=== PATIENT | female | born 1940 | race African-American/Black ===

== ENCOUNTER 2016-06-02 21:09 | Inpatient (IN) | payer MEDICARE, MEDICAID ==
[~2016-06-02] VITALS: Ht 157.5 cm; Wt 62.1 kg
[~2016-06-02 21:09] MED LIST: AMLO1CAP2 PO; ATEN-42 PO; COLE3.75 PO; CYCL5TAB PO; DOCU-138 PO; GABA-531 PO; GLIP5TAB12 PO; HYDR-523 PO; SITA1TAB8 PO; ZOLP10TA6 PO
[2016-06-02] MEDS ORDERED: ONDANSETRON HCL 4MG/2ML VIAL IV STA (22:52)
[2016-06-02] MEDS ORDERED: SODIUM CHLORIDE 0.9% 1,000 ML IV ONE (22:52)
[2016-06-02] MEDS ORDERED: ACETAMINOPHEN 325MG TABLET PO STA (22:52)
[2016-06-02 23:25] LABS: HEMOGLOBIN. 12.7 g/dL (12.0-16.0); MEAN CORPUSCULAR HEMOGLOBIN 26.1 pg (28.0-32.0); MEAN CORPUSCULAR HGB CONC 32.5 g/dL (31.0-37.0); MEAN CORPUSCULAR VOLUME 80.3 fL (81.0-99.0); PLATELET 227 x1000/uL (130-400); RED BLOOD CELL COUNT 4.86 mill/uL (4.2-5.4); WHITE BLOOD COUNT 9.7 x1000/uL (4.5-11.0)
[2016-06-02 23:29] LABS: CHLORIDE 100 mEq/L (98-107); INDEX HEMOLYSI 1 (1-3); INDEX ICTERIC 1 (1-4); INDEX LIPEMIC 1 (1-3)
[2016-06-02 23:30] LABS: DIFFERENTIAL COMMENT 1
[2016-06-02 23:35] LABS: ALANINE AMINOTRANSFERASE 327 IU/L (13-61); ALBUMIN 3.3 g/dL (3.4-5.0); ANION GAP 16; CALCIUM 8.6 mg/dL (8.5-10.1); CARBON DIOXIDE 24 mEq/L (21-32); UREA NITROGEN BLOOD 22 mg/dL (7-21); eGFR > 60 mL/min (>60)
[2016-06-02 23:38] LABS: TROPONIN I < 0.02 ng/mL (0.00-0.04)
[2016-06-02 23:46] LABS: LACTIC ACID 3.2 mmol/L (0.4-2.0)
[2016-06-03 00:11] LABS: CLARITY URINE CLEAR (CLEAR); COLOR URINE YELLOW (YELLOW); GLUCOSE URINE NEGATIVE (NEGATIVE); KETONES URINE NEGATIVE (NEGATIVE); LEUKOCYTE ESTERASE URINE NEGATIVE (NEGATIVE); NITRITE URINE NEGATIVE (NEGATIVE); OCCULT BLOOD URINE NEGATIVE (NEGATIVE); PH URINE 5.5 (4.5-8.0); PROTEIN URINE 1+ (NEGATIVE); SPECIFIC GRAVITY URINE 1.014 (1.005-1.030); UROBILINOGEN URINE 0.2 E.U./dL (0.2-1.0)
[2016-06-03 00:13] LABS: PLATELET ESTIMATE NORMAL
[2016-06-03 00:13] LABS: BACTERIA URINE NONE SEEN; CALCIUM PHOSPHATE CRYSTALS UR NONE SEEN /lpf; RBC URINE NONE SEEN /hpf (0-2); SQUAMOUS EPITHELIAL CELL URINE NONE SEEN /lpf (RARE/1+); WAXY CASTS URINE NONE SEEN /lpf; WBC URINE NONE SEEN /hpf (0-2); YEAST URINE NONE SEEN
[2016-06-03] MEDS ORDERED: LEVOFLOXACIN 750MG PREMIX 150 ML IV ONE (00:30)
[2016-06-03] MEDS ORDERED: LEVOFLOXACIN 500MG PREMIX 100 ML IV SCH (02:15)
[2016-06-03] MEDS ORDERED: CLONIDINE 0.1MG TABLET PO PRN (02:15)
[2016-06-03] MEDS ORDERED: ACETAMINOPHEN 325MG TABLET PO PRN (02:15)
[2016-06-03] MEDS: SODIUM CHLORIDE 0.9% 1,000 ML IV SCH ×2 (04:19→18:24)
[2016-06-03 06:00] LABS: DIFFERENTIAL COMMENT 1; HEMATOCRIT. 36.3 % (36.0-48.0); HEMOGLOBIN. 11.9 g/dL (12.0-16.0); MEAN CORPUSCULAR HEMOGLOBIN 26.2 pg (28.0-32.0); MEAN CORPUSCULAR HGB CONC 32.8 g/dL (31.0-37.0); MEAN CORPUSCULAR VOLUME 79.9 fL (81.0-99.0); PLATELET 202 x1000/uL (130-400); RED BLOOD CELL COUNT 4.55 mill/uL (4.2-5.4); WHITE BLOOD COUNT 11.8 x1000/uL (4.5-11.0)
[2016-06-03 06:02] LABS: CHLORIDE 104 mEq/L (98-107); INDEX HEMOLYSI 1 (1-3); INDEX ICTERIC 1 (1-4); INDEX LIPEMIC 1 (1-3)
[2016-06-03 06:18] LABS: ANION GAP 12; CALCIUM 8.1 mg/dL (8.5-10.1); CARBON DIOXIDE 26 mEq/L (21-32); MAGNESIUM 1.3 mg/dL (1.8-2.4); T3 FREE 1.48 pg/ml (2.18-3.98); T4 FREE 1.18 ng/dL (0.76-1.46); UREA NITROGEN BLOOD 17 mg/dL (7-21); eGFR > 60 mL/min (>60)
[2016-06-03 07:44] LABS: PLATELET ESTIMATE NORMAL
[2016-06-03] MEDS: ONDANSETRON HCL 4MG/2ML VIAL IV PRN (08:29)
[2016-06-03] MEDS: MORPHINE SULFATE 2 MG/ML CPJ (NOT FOR IM USE) IV PRN (08:29)
[2016-06-03 11:05] VITALS: BP 116/61
[2016-06-03 11:22] VITALS: BP 116/61
[2016-06-03] MEDS ORDERED: PREG75CA PO (11:56)
[2016-06-03] MEDS: ENOXAPARIN 40MG/0.4ML SYR SUBCUT SCH (12:48)
[2016-06-03] MEDS ORDERED: MAGNESIUM 4 G PREMIX 100 ML IV NR (13:00)
[2016-06-03] MEDS ORDERED: DEXTROSE 50% WATER 50ML SYRINGE IV PRN (13:45)
[2016-06-03] MEDS ORDERED: SODIUM PHOS,M-BASIC-D-BASIC 15 MM in DEXT 5% WATER 245 ML IV NR (14:00)
[2016-06-03 16:00] VITALS: BP_SYST 123; BP_SYST 129; BP_SYST 135; BP_DIAS 57; BP_DIAS 65; BP_DIAS 72
[2016-06-03] MEDS: BLOOD SUGAR DIAGNOSTIC STRIP TEST SCH ×2 (17:40→20:55)
[2016-06-03] MEDS: INSULIN LISPRO 100 UNITS/ML SUBCUT SCH ×2 (18:46→20:58)
[2016-06-03 20:00] VITALS: BP 163/79
[2016-06-04] VITALS: BP 125/59
[2016-06-04] MEDS: MORPHINE SULFATE 2 MG/ML CPJ (NOT FOR IM USE) IV PRN (00:05)
[2016-06-04] MEDS: LEVOFLOXACIN 250MG PREMIX 50 ML IV SCH (00:06)
[2016-06-04] MEDS ORDERED: HYDROCODONE/ACETAMINOPHEN 5/325MG TABLET PO PRN (01:30)
[2016-06-04 03:41] LABS: CLARITY URINE CLEAR (CLEAR); COLOR URINE YELLOW (YELLOW); GLUCOSE URINE 3+ (NEGATIVE); KETONES URINE NEGATIVE (NEGATIVE); LEUKOCYTE ESTERASE URINE NEGATIVE (NEGATIVE); NITRITE URINE NEGATIVE (NEGATIVE); OCCULT BLOOD URINE NEGATIVE (NEGATIVE); PH URINE 5.5 (4.5-8.0); PROTEIN URINE NEGATIVE (NEGATIVE); SPECIFIC GRAVITY URINE 1.015 (1.005-1.030); UROBILINOGEN URINE 0.2 E.U./dL (0.2-1.0)
[2016-06-04 04:00] VITALS: BP_SYST 104; BP_SYST 109; BP_SYST 131; BP_DIAS 49; BP_DIAS 71; BP_DIAS 87
[2016-06-04 04:10] LABS: BACTERIA URINE NONE SEEN; RBC URINE 0-2 /hpf (0-2); SQUAMOUS EPITHELIAL CELL URINE FEW /lpf (RARE/1+); WBC URINE 0-2 /hpf (0-2)
[2016-06-04 05:08] LABS: *AMPHETAMINES SCREEN URINE NEGATIVE (NEGATIVE); *BARBITURATES SCREEN URINE NEGATIVE (NEGATIVE); *BENZODIAZEPINES SCREEN URINE NEGATIVE (NEGATIVE); *COCAINE SCREEN URINE NEGATIVE (NEGATIVE); CANNABINOID URINE SCREEN NEGATIVE (NEGATIVE); ECSTASY MDMA SCREEN URINE NEGATIVE (NEGATIVE); METHADONE URINE SCREEN NEGATIVE (NEGATIVE); OPIATES URINE SCREEN PRESUMTIVE POSITIVE (NEGATIVE); PHENCYCLIDINE URINE SCREEN NEGATIVE (NEGATIVE)
[2016-06-04] MEDS: BLOOD SUGAR DIAGNOSTIC STRIP TEST SCH ×4 (06:59→20:34)
[2016-06-04 07:06] LABS: HEMATOCRIT. 34.1 % (36.0-48.0); HEMOGLOBIN. 11.1 g/dL (12.0-16.0); MEAN CORPUSCULAR HEMOGLOBIN 26.1 pg (28.0-32.0); MEAN CORPUSCULAR HGB CONC 32.7 g/dL (31.0-37.0); MEAN PLATELET VOLUME 8.2 fl (7.4-10.4); PLATELET 190 x1000/uL (130-400); RED BLOOD CELL COUNT 4.26 mill/uL (4.2-5.4); RED CELL DISTRIBUTION WIDTH 14.3 % (11.6-14.6); WHITE BLOOD COUNT 6.9 x1000/uL (4.5-11.0)
[2016-06-04 07:10] LABS: DIFFERENTIAL COMMENT 1
[2016-06-04 07:37] LABS: CHLORIDE 103 mEq/L (98-107); INDEX HEMOLYSI 1 (1-3); INDEX ICTERIC 1 (1-4); INDEX LIPEMIC 1 (1-3)
[2016-06-04 08:00] VITALS: BP 132/71
[2016-06-04 08:00] LABS: ANION GAP 15; CALCIUM 8.5 mg/dL (8.5-10.1); CARBON DIOXIDE 23 mEq/L (21-32); UREA NITROGEN BLOOD 16 mg/dL (7-21); eGFR > 60 mL/min (>60)
[2016-06-04] MEDS: CYCLOBENZAPRINE 10MG TABLET PO SCH ×3 (08:28→18:06)
[2016-06-04] MEDS: INSULIN LISPRO 100 UNITS/ML SUBCUT SCH ×4 (08:28→21:06)
[2016-06-04] MEDS: LINAGLIPTIN 5MG TABLET PO SCH (08:28)
[2016-06-04] MEDS: DOCUSATE SODIUM 100MG CAPSULE PO SCH ×2 (08:40→18:06)
[2016-06-04] MEDS: PREGABALIN 75MG CAPSULE PO SCH (08:40)
[2016-06-04] MEDS: GLIPIZIDE 5MG TABLET PO SCH ×2 (08:41→18:06)
[2016-06-04] MEDS: ATENOLOL 25MG TABLET PO SCH (08:41)
[2016-06-04] MEDS: GABAPENTIN 300MG CAPSULE PO SCH ×3 (08:45→17:00)
[2016-06-04] MEDS: ENOXAPARIN 40MG/0.4ML SYR SUBCUT SCH (08:45)
[2016-06-04] MEDS: BENAZEPRIL 20MG TABLET PO SCH (08:48)
[2016-06-04] MEDS: AMLODIPINE 10MG TABLET PO SCH (08:50)
[2016-06-04] MEDS ORDERED: GABAPENTIN 300MG CAPSULE PO SCH (09:00)
[2016-06-04] MEDS ORDERED: COLESEVELAM HCL 625MG TABLET PO SCH (09:00)
[2016-06-04] MEDS ORDERED: AMLODIPINE 5MG TABLET PO SCH (09:00)
[2016-06-04 10:01] LABS: PLATELET ESTIMATE NORMAL
[2016-06-04] MEDS: SODIUM CHLORIDE 0.9% 1,000 ML IV SCH (10:04)
[2016-06-04 11:05] LABS: ALANINE AMINOTRANSFERASE 211 IU/L (13-61); ALBUMIN 2.3 g/dL (3.4-5.0); BILIRUBIN DIRECT < 0.1 mg/dL (0.0-0.2); INDEX HEMOLYSI 2 (1-3); INDEX ICTERIC 1 (1-4); INDEX LIPEMIC 1 (1-3)
[2016-06-04 12:00] VITALS: BP 118/80
[2016-06-04 16:00] VITALS: BP 125/89
[2016-06-04 20:00] VITALS: BP_SYST 119; BP_SYST 120; BP_SYST 123; BP_DIAS 76; BP_DIAS 79; BP_DIAS 84
[2016-06-04] MEDS: ZOLPIDEM TARTRATE 5MG TABLET PO PRN (20:33)
[2016-06-04] MEDS: TRAMADOL 50MG TABLET PO PRN (20:34)
[2016-06-05] VITALS: BP 113/78
[2016-06-05] MEDS: LEVOFLOXACIN 250MG PREMIX 50 ML IV SCH (00:12)
[2016-06-05] MEDS: SODIUM CHLORIDE 0.9% 1,000 ML IV SCH ×2 (00:16→17:22)
[2016-06-05 04:00] VITALS: BP 129/59
[2016-06-05 06:04] LABS: HEMATOCRIT. 30.6 % (36.0-48.0); MEAN CORPUSCULAR HGB CONC 32.6 g/dL (31.0-37.0); MEAN CORPUSCULAR VOLUME 79.8 fL (81.0-99.0); MEAN PLATELET VOLUME 8.3 fl (7.4-10.4); PLATELET 206 x1000/uL (130-400); RED BLOOD CELL COUNT 3.84 mill/uL (4.2-5.4); RED CELL DISTRIBUTION WIDTH 14.1 % (11.6-14.6); WHITE BLOOD COUNT 7.8 x1000/uL (4.5-11.0)
[2016-06-05 06:12] LABS: CHLORIDE 103 mEq/L (98-107); INDEX HEMOLYSI 1 (1-3); INDEX ICTERIC 1 (1-4); INDEX LIPEMIC 1 (1-3)
[2016-06-05] MEDS: BLOOD SUGAR DIAGNOSTIC STRIP TEST SCH ×4 (06:17→21:29)
[2016-06-05 06:19] LABS: ALANINE AMINOTRANSFERASE 167 IU/L (13-61); ALBUMIN 2.4 g/dL (3.4-5.0); ANION GAP 14; BILIRUBIN DIRECT < 0.1 mg/dL (0.0-0.2); CARBON DIOXIDE 24 mEq/L (21-32); HDL CHOLESTEROL 34 mg/dL (40-59); LDL CHOLESTEROL 79 mg/dL (5-100); TRIGLYCERIDE 185 mg/dL (0-150); UREA NITROGEN BLOOD 21 mg/dL (7-21); eGFR > 60 mL/min (>60)
[2016-06-05 06:30] LABS: DIFFERENTIAL COMMENT 1
[2016-06-05 08:00] VITALS: BP 149/105
[2016-06-05] MEDS: DOCUSATE SODIUM 100MG CAPSULE PO SCH ×2 (08:39→17:21)
[2016-06-05] MEDS: ATENOLOL 25MG TABLET PO SCH (08:39)
[2016-06-05] MEDS: LINAGLIPTIN 5MG TABLET PO SCH (08:39)
[2016-06-05] MEDS: PREGABALIN 75MG CAPSULE PO SCH (08:39)
[2016-06-05] MEDS: GLIPIZIDE 5MG TABLET PO SCH ×2 (08:39→17:21)
[2016-06-05] MEDS: CYCLOBENZAPRINE 10MG TABLET PO SCH ×3 (08:39→17:21)
[2016-06-05] MEDS: ENOXAPARIN 40MG/0.4ML SYR SUBCUT SCH (08:40)
[2016-06-05] MEDS: AMLODIPINE 10MG TABLET PO SCH (08:40)
[2016-06-05] MEDS: BENAZEPRIL 20MG TABLET PO SCH (08:40)
[2016-06-05] MEDS: INSULIN LISPRO 100 UNITS/ML SUBCUT SCH ×4 (08:41→21:39)
[2016-06-05 11:15] LABS: PLATELET ESTIMATE NORMAL
[2016-06-05 12:00] VITALS: BP_SYST 138; BP_SYST 145; BP_DIAS 65; BP_DIAS 69; BP_DIAS 92
[2016-06-05 16:00] VITALS: BP 140/82
[2016-06-05] MEDS: ONDANSETRON HCL 4MG/2ML VIAL IV PRN (18:54)
[2016-06-05] MEDS: TRAMADOL 50MG TABLET PO PRN (18:55)
[2016-06-05 20:00] VITALS: BP_SYST 139; BP_SYST 140; BP_DIAS 100; BP_DIAS 84
[2016-06-05] MEDS: ZOLPIDEM TARTRATE 5MG TABLET PO PRN (21:28)
[2016-06-06] VITALS: BP 146/83
[2016-06-06] MEDS: LEVOFLOXACIN 250MG PREMIX 50 ML IV SCH (00:37)
[2016-06-06 04:00] VITALS: BP 137/79
[2016-06-06] MEDS: BLOOD SUGAR DIAGNOSTIC STRIP TEST SCH ×4 (06:24→20:57)
[2016-06-06 07:58] VITALS: BP 138/95
[2016-06-06] MEDS: SODIUM CHLORIDE 0.9% 1,000 ML IV SCH (08:17)
[2016-06-06] MEDS: ENOXAPARIN 40MG/0.4ML SYR SUBCUT SCH (08:20)
[2016-06-06] MEDS: DOCUSATE SODIUM 100MG CAPSULE PO SCH ×2 (08:21→17:12)
[2016-06-06] MEDS: BENAZEPRIL 20MG TABLET PO SCH (08:21)
[2016-06-06] MEDS: AMLODIPINE 10MG TABLET PO SCH (08:21)
[2016-06-06] MEDS: PREGABALIN 75MG CAPSULE PO SCH (08:21)
[2016-06-06] MEDS: CYCLOBENZAPRINE 10MG TABLET PO SCH ×3 (08:21→17:12)
[2016-06-06] MEDS: ATENOLOL 25MG TABLET PO SCH (08:21)
[2016-06-06] MEDS: LINAGLIPTIN 5MG TABLET PO SCH (08:21)
[2016-06-06] MEDS: GLIPIZIDE 5MG TABLET PO SCH ×2 (08:21→17:12)
[2016-06-06] MEDS: INSULIN LISPRO 100 UNITS/ML SUBCUT SCH ×4 (08:26→21:06)
[2016-06-06 09:41] LABS: HEMATOCRIT. 34.9 % (36.0-48.0); HEMOGLOBIN. 11.2 g/dL (12.0-16.0); MEAN CORPUSCULAR HGB CONC 32.2 g/dL (31.0-37.0); MEAN CORPUSCULAR VOLUME 80.8 fL (81.0-99.0); MEAN PLATELET VOLUME 8.2 fl (7.4-10.4); PLATELET 225 x1000/uL (130-400); RED BLOOD CELL COUNT 4.32 mill/uL (4.2-5.4); RED CELL DISTRIBUTION WIDTH 14.3 % (11.6-14.6); WHITE BLOOD COUNT 11.1 x1000/uL (4.5-11.0)
[2016-06-06 09:43] LABS: DIFFERENTIAL COMMENT 1
[2016-06-06 10:08] LABS: ALANINE AMINOTRANSFERASE 161 IU/L (13-61); ALBUMIN 2.6 g/dL (3.4-5.0); ANION GAP 13; CALCIUM 8.6 mg/dL (8.5-10.1); CARBON DIOXIDE 28 mEq/L (21-32); CHLORIDE 103 mEq/L (98-107); INDEX HEMOLYSI 1 (1-3); INDEX ICTERIC 1 (1-4); INDEX LIPEMIC 1 (1-3); UREA NITROGEN BLOOD 15 mg/dL (7-21); eGFR > 60 mL/min (>60)
[2016-06-06 11:59] LABS: PLATELET ESTIMATE NORMAL
[2016-06-06 12:00] VITALS: BP 140/82
[2016-06-06 16:00] VITALS: BP_SYST 125; BP_SYST 133; BP_SYST 148; BP_DIAS 64; BP_DIAS 72; BP_DIAS 82
[2016-06-06] MEDS: OMEPRAZOLE 20MG CAPSULE EXTENDED RELEASE PO SCH (17:12)
[2016-06-06 20:00] VITALS: BP_SYST 149; BP_SYST 157; BP_SYST 165; BP_DIAS 73; BP_DIAS 83; BP_DIAS 85
[2016-06-06] MEDS: TRAMADOL 50MG TABLET PO PRN (20:54)
[2016-06-06] MEDS: ZOLPIDEM TARTRATE 5MG TABLET PO PRN (20:54)
[2016-06-06] MEDS ORDERED: LEVOFLOXACIN 250MG TABLET PO SCH (21:00)
[2016-06-07] VITALS: BP 147/70
[2016-06-07 04:00] VITALS: BP 135/93
[2016-06-07 06:14] LABS: ALANINE AMINOTRANSFERASE 169 IU/L (13-61); ALBUMIN 2.8 g/dL (3.4-5.0); ANION GAP 10; BILIRUBIN DIRECT < 0.1 mg/dL (0.0-0.2); CALCIUM 8.8 mg/dL (8.5-10.1); CARBON DIOXIDE 31 mEq/L (21-32); CHLORIDE 100 mEq/L (98-107); HEMATOCRIT. 34.7 % (36.0-48.0); HEMOGLOBIN. 11.3 g/dL (12.0-16.0); INDEX HEMOLYSI 1 (1-3); INDEX ICTERIC 1 (1-4); INDEX LIPEMIC 1 (1-3); MAGNESIUM 1.3 mg/dL (1.8-2.4); MEAN CORPUSCULAR HGB CONC 32.5 g/dL (31.0-37.0); MEAN PLATELET VOLUME 8.3 fl (7.4-10.4); PLATELET 255 x1000/uL (130-400); RED BLOOD CELL COUNT 4.34 mill/uL (4.2-5.4); RED CELL DISTRIBUTION WIDTH 14.3 % (11.6-14.6); UREA NITROGEN BLOOD 15 mg/dL (7-21); WHITE BLOOD COUNT 11.9 x1000/uL (4.5-11.0); eGFR > 60 mL/min (>60)
[2016-06-07 06:25] LABS: DIFFERENTIAL COMMENT 1
[2016-06-07] MEDS: BLOOD SUGAR DIAGNOSTIC STRIP TEST SCH ×4 (06:27→21:17)
[2016-06-07 08:00] VITALS: BP_SYST 138; BP_SYST 140; BP_SYST 157; BP_DIAS 103; BP_DIAS 75; BP_DIAS 84
[2016-06-07] MEDS: OMEPRAZOLE 20MG CAPSULE EXTENDED RELEASE PO SCH (08:18)
[2016-06-07] MEDS: INSULIN LISPRO 100 UNITS/ML SUBCUT SCH ×4 (08:18→21:00)
[2016-06-07] MEDS: GLIPIZIDE 5MG TABLET PO SCH ×2 (09:20→18:24)
[2016-06-07] MEDS: PREGABALIN 75MG CAPSULE PO SCH (09:20)
[2016-06-07] MEDS: CYCLOBENZAPRINE 10MG TABLET PO SCH ×3 (09:20→18:24)
[2016-06-07] MEDS: DOCUSATE SODIUM 100MG CAPSULE PO SCH ×2 (09:20→18:24)
[2016-06-07] MEDS: ENOXAPARIN 40MG/0.4ML SYR SUBCUT SCH (09:20)
[2016-06-07] MEDS: BENAZEPRIL 20MG TABLET PO SCH (09:21)
[2016-06-07] MEDS: ATENOLOL 25MG TABLET PO SCH (09:21)
[2016-06-07] MEDS: AMLODIPINE 10MG TABLET PO SCH (09:22)
[2016-06-07] MEDS: LINAGLIPTIN 5MG TABLET PO SCH (10:22)
[2016-06-07 12:00] VITALS: BP 148/76
[2016-06-07] MEDS: MAGNESIUM OXIDE 400MG TABLET PO SCH ×2 (13:32→18:24)
[2016-06-07 13:41] LABS: PLATELET ESTIMATE NORMAL
[2016-06-07] MEDS: SODIUM CHLORIDE 0.9% 1,000 ML IV SCH ×2 (14:00→21:17)
[2016-06-07 16:00] VITALS: BP 136/80
[2016-06-07 18:27] LABS: HEPATITIS B SURFACE ANTIGEN NEGATIVE
[2016-06-07 18:55] LABS: HEPATITIS C VIR.AB < 0.02 INDEXVAL (0.00-0.80)
[2016-06-07 18:56] LABS: HEPATITIS B CORE AB IGM NEGATIVE
[2016-06-07 18:57] LABS: HEPATITIS A AB IGM NEGATIVE (NEGATIVE)
[2016-06-07 20:00] VITALS: BP_SYST 140; BP_SYST 144; BP_SYST 157; BP_DIAS 76; BP_DIAS 80
[2016-06-07] MEDS ORDERED: INSULIN DETEMIR UD 100 UNITS/ML SYR SUBCUT SCH (22:00)
[2016-06-08] VITALS: BP 121/78
[2016-06-08 04:00] VITALS: BP 132/85
[2016-06-08] MEDS: BLOOD SUGAR DIAGNOSTIC STRIP TEST SCH ×2 (05:56→12:25)
[2016-06-08 06:34] LABS: HEMATOCRIT. 34.4 % (36.0-48.0); HEMOGLOBIN. 11.1 g/dL (12.0-16.0); MEAN CORPUSCULAR HEMOGLOBIN 26.2 pg (28.0-32.0); MEAN CORPUSCULAR HGB CONC 32.2 g/dL (31.0-37.0); MEAN CORPUSCULAR VOLUME 81.2 fL (81.0-99.0); MEAN PLATELET VOLUME 8.3 fl (7.4-10.4); PLATELET 241 x1000/uL (130-400); RED BLOOD CELL COUNT 4.24 mill/uL (4.2-5.4); RED CELL DISTRIBUTION WIDTH 14.5 % (11.6-14.6); WHITE BLOOD COUNT 13.7 x1000/uL (4.5-11.0)
[2016-06-08 06:45] LABS: ALANINE AMINOTRANSFERASE 175 IU/L (13-61); ALBUMIN 2.6 g/dL (3.4-5.0); ANION GAP 11; BILIRUBIN DIRECT < 0.1 mg/dL (0.0-0.2); CALCIUM 8.2 mg/dL (8.5-10.1); CARBON DIOXIDE 29 mEq/L (21-32); CHLORIDE 100 mEq/L (98-107); INDEX HEMOLYSI 1 (1-3); INDEX ICTERIC 1 (1-4); INDEX LIPEMIC 1 (1-3); MAGNESIUM 1.5 mg/dL (1.8-2.4); UREA NITROGEN BLOOD 19 mg/dL (7-21); eGFR > 60 mL/min (>60)
[2016-06-08 07:08] LABS: DIFFERENTIAL COMMENT 1
[2016-06-08 08:00] VITALS: BP_SYST 121; BP_SYST 140; BP_SYST 159; BP_DIAS 108; BP_DIAS 73; BP_DIAS 86
[2016-06-08] MEDS: DOCUSATE SODIUM 100MG CAPSULE PO SCH (08:50)
[2016-06-08] MEDS: GLIPIZIDE 5MG TABLET PO SCH (08:51)
[2016-06-08] MEDS: LINAGLIPTIN 5MG TABLET PO SCH (08:51)
[2016-06-08] MEDS: PREGABALIN 75MG CAPSULE PO SCH (08:51)
[2016-06-08] MEDS: CYCLOBENZAPRINE 10MG TABLET PO SCH ×2 (08:52→12:25)
[2016-06-08] MEDS ORDERED: FAMOTIDINE 20MG TABLET PO SCH (09:00)
[2016-06-08] MEDS: ATENOLOL 25MG TABLET PO SCH (09:08)
[2016-06-08] MEDS: AMLODIPINE 10MG TABLET PO SCH (09:08)
[2016-06-08] MEDS: BENAZEPRIL 20MG TABLET PO SCH (09:09)
[2016-06-08] MEDS: ENOXAPARIN 40MG/0.4ML SYR SUBCUT SCH (09:09)
[2016-06-08] MEDS: MAGNESIUM OXIDE 400MG TABLET PO SCH (09:09)
[2016-06-08] MEDS: INSULIN LISPRO 100 UNITS/ML SUBCUT SCH ×2 (09:14→12:27)
[2016-06-08] MEDS: SODIUM CHLORIDE 0.9% 1,000 ML IV SCH (09:14)
[2016-06-08 10:57] LABS: NUCLEATED RED BLOOD CELLS 1 /100 WBC; PLATELET ESTIMATE NORMAL
[2016-06-08 12:00] VITALS: BP 118/87
[2016-06-08 13:57] VITALS: BP 118/87
== END 2016-06-08 15:20 | disposition home or self-care (01) | DRG 441 ==
LOC: ER 21:10 → SUPCPDRO 06-03 02:00 → 7WST 06-03 02:26
PROVIDERS: ADMIT Internal Medicine Nephrology; ATTEND Internal Medicine Nephrology
DX: K76.0 Fatty (change of) liver, not elsewhere classified (principal); J15.9 Unspecified bacterial pneumonia; R65.11 Systemic inflammatory response syndrome (SIRS) of non-infectious origin with acute organ dysfunction; N39.0 Urinary tract infection, site not specified; E87.2 Acidosis; D50.9 Iron deficiency anemia, unspecified; E86.0 Dehydration; R74.0 Nonspecific elevation of levels of transaminase and lactic acid dehydrogenase [LDH]; E11.40 Type 2 diabetes mellitus with diabetic neuropathy, unspecified; E83.42 Hypomagnesemia; I51.7 Cardiomegaly; D25.9 Leiomyoma of uterus, unspecified; D32.9 Benign neoplasm of meninges, unspecified; E11.51 Type 2 diabetes mellitus with diabetic peripheral angiopathy without gangrene; E78.00 Pure hypercholesterolemia, unspecified; K44.9 Diaphragmatic hernia without obstruction or gangrene; E11.65 Type 2 diabetes mellitus with hyperglycemia; E78.5 Hyperlipidemia, unspecified; I11.9 Hypertensive heart disease without heart failure; I25.10 Atherosclerotic heart disease of native coronary artery without angina pectoris; I95.1 Orthostatic hypotension; K21.9 Gastro-esophageal reflux disease without esophagitis; E88.09 Other disorders of plasma-protein metabolism, not elsewhere classified; K57.90 Diverticulosis of intestine, part unspecified, without perforation or abscess without bleeding; K59.00 Constipation, unspecified; M19.90 Unspecified osteoarthritis, unspecified site; N28.1 Cyst of kidney, acquired; Z82.49 Family history of ischemic heart disease and other diseases of the circulatory system; Z79.4 Long term (current) use of insulin; Z83.3 Family history of diabetes mellitus; Z85.3 Personal history of malignant neoplasm of breast; Z86.011 Personal history of benign neoplasm of the brain; Z87.442 Personal history of urinary calculi; Z88.1 Allergy status to other antibiotic agents; Z88.8 Allergy status to other drugs, medicaments and biological substances; Z90.49 Acquired absence of other specified parts of digestive tract; Z98.890 Other specified postprocedural states
CPT/HCPCS: 36415; 71010; 74176; 76700; 80048; 80053; 80061; 80076; 80305; 81001; 81003; 82962; 83036; 83605; 83690; 83735; 84100; 84439; 84443; 84481; 84484; 85025; 86705; 86709; 86803; 87040; 87086; 87340; 87493; 93005; 93306; 96361; 96365; 96375; 96376; 97116; 97162; 99285; J1650; J1815; J1956; J2270; J2405; J3475; J3490; J7030; J7060

== ENCOUNTER 2016-06-24 17:35 | Inpatient (IN) | payer MEDICARE, MEDICAID ==
[~2016-06-24] VITALS: Ht 157.5 cm; Wt 68.0 kg
[~2016-06-24 17:35] MED LIST changes: -COLE3.75 PO; -HYDR-523 PO; +PREG75CA PO
[2016-06-24 20:00] VITALS: BP 124/58
[2016-06-24] MEDS ORDERED: ONDANSETRON HCL 4MG TABLET PO PRN (20:00)
[2016-06-24] MEDS ORDERED: DEXTROSE 50% WATER 50ML SYRINGE IV PRN (20:00)
[2016-06-24] MEDS ORDERED: CLONIDINE 0.1MG TABLET PO PRN (20:00)
[2016-06-24] MEDS ORDERED: TRAMADOL 50MG TABLET PO PRN (20:00)
[2016-06-24] MEDS: BLOOD SUGAR DIAGNOSTIC STRIP TEST SCH (21:00)
[2016-06-24] MEDS ORDERED: AMOXICILLIN/POTASSIUM CLAVULANATE 500/125MG TAB PO SCH (21:00)
[2016-06-24] MEDS: GABAPENTIN 300MG CAPSULE PO SCH (22:50)
[2016-06-24] MEDS: METOPROLOL TARTRATE 50MG TABLET PO SCH (22:51)
[2016-06-24] MEDS: AMLODIPINE 5MG TABLET PO SCH (22:51)
[2016-06-24] MEDS: INSULIN LISPRO 100 UNITS/ML SUBCUT SCH (23:23)
[2016-06-24] MEDS: INSULIN DETEMIR UD 100 UNITS/ML SYR SUBCUT SCH (23:28)
[2016-06-24] MEDS: HYDRALAZINE HCL 50MG TABLET PO SCH (23:44)
[2016-06-25] MEDS: IPRATROPIUM/ALBUTEROL 0.5-3(2.5)MG/3ML NEB HHN SCH ×5 (04:02→20:58)
[2016-06-25] MEDS: PANTOPRAZOLE 40MG DR TABLET PO SCH (06:28)
[2016-06-25] MEDS: GABAPENTIN 300MG CAPSULE PO SCH ×3 (06:28→21:36)
[2016-06-25] MEDS: HYDRALAZINE HCL 50MG TABLET PO SCH ×3 (06:28→22:00)
[2016-06-25] MEDS: BLOOD SUGAR DIAGNOSTIC STRIP TEST SCH ×4 (06:28→21:36)
[2016-06-25] MEDS: INSULIN LISPRO 100 UNITS/ML SUBCUT SCH ×4 (06:29→21:42)
[2016-06-25 06:33] LABS: HEMOGLOBIN 11.3 g/dL (12.0-16.0); MEAN CORPUSCULAR HGB CONC 33.3 g/dL (31.0-37.0); PLATELET 416 x1000/uL (130-400); RED BLOOD CELL COUNT 4.19 mill/uL (4.2-5.4); RED CELL DISTRIBUTION WIDTH 15.9 % (11.6-14.6); WHITE BLOOD COUNT 8.6 x1000/uL (4.5-11.0)
[2016-06-25 07:36] LABS: ALANINE AMINOTRANSFERASE 32 IU/L (13-61); ALBUMIN 2.2 g/dL (3.4-5.0); ANION GAP 14; CALCIUM 8.8 mg/dL (8.5-10.1); CARBON DIOXIDE 25 mEq/L (21-32); CHLORIDE 103 mEq/L (98-107); INDEX HEMOLYSI 1 (1-3); INDEX ICTERIC 1 (1-4); INDEX LIPEMIC 1 (1-3); UREA NITROGEN BLOOD 12 mg/dL (7-21); eGFR 44 mL/min (>60)
[2016-06-25 07:40] LABS: PREALBUMIN 11.6 mg/dL (20.0-40.0)
[2016-06-25 08:00] VITALS: BP 122/61
[2016-06-25 08:11] LABS: MAGNESIUM 1.2 mg/dL (1.8-2.4)
[2016-06-25] MEDS: AMLODIPINE 5MG TABLET PO SCH ×2 (08:55→21:40)
[2016-06-25] MEDS: METOPROLOL TARTRATE 50MG TABLET PO SCH ×2 (08:55→21:39)
[2016-06-25] MEDS: MAGNESIUM OXIDE 400MG TABLET PO SCH ×2 (08:56→18:17)
[2016-06-25] MEDS ORDERED: MAGNESIUM 4 G PREMIX 100 ML IV NR (13:00)
[2016-06-25 20:00] VITALS: BP 125/74
[2016-06-25] MEDS: INSULIN DETEMIR UD 100 UNITS/ML SYR SUBCUT SCH (21:41)
[2016-06-25] MEDS: ZOLPIDEM TARTRATE 5MG TABLET PO PRN (23:52)
[2016-06-26] MEDS: IPRATROPIUM/ALBUTEROL 0.5-3(2.5)MG/3ML NEB HHN SCH ×6 (00:09→21:17)
[2016-06-26] MEDS: HYDRALAZINE HCL 50MG TABLET PO SCH ×3 (06:00→22:47)
[2016-06-26] MEDS: PANTOPRAZOLE 40MG DR TABLET PO SCH (06:55)
[2016-06-26] MEDS: BLOOD SUGAR DIAGNOSTIC STRIP TEST SCH ×4 (06:55→21:00)
[2016-06-26] MEDS: INSULIN LISPRO 100 UNITS/ML SUBCUT SCH ×4 (06:55→22:51)
[2016-06-26] MEDS: GABAPENTIN 300MG CAPSULE PO SCH ×3 (06:55→22:47)
[2016-06-26 08:00] VITALS: BP 105/51
[2016-06-26] MEDS: METOPROLOL TARTRATE 50MG TABLET PO SCH ×2 (08:11→22:47)
[2016-06-26] MEDS: AMLODIPINE 5MG TABLET PO SCH ×2 (08:12→22:47)
[2016-06-26] MEDS: MAGNESIUM OXIDE 400MG TABLET PO SCH ×2 (08:21→17:04)
[2016-06-26 20:00] VITALS: BP 118/57
[2016-06-26 22:02] LABS: CLARITY URINE CLEAR (CLEAR); COLOR URINE YELLOW (YELLOW); GLUCOSE URINE NEGATIVE (NEGATIVE); KETONES URINE NEGATIVE (NEGATIVE); LEUKOCYTE ESTERASE URINE 2+ (NEGATIVE); NITRITE URINE NEGATIVE (NEGATIVE); OCCULT BLOOD URINE NEGATIVE (NEGATIVE); PH URINE 5.5 (4.5-8.0); PROTEIN URINE NEGATIVE (NEGATIVE); SPECIFIC GRAVITY URINE 1.008 (1.005-1.030); UROBILINOGEN URINE 0.2 E.U./dL (0.2-1.0)
[2016-06-26] MEDS: INSULIN DETEMIR UD 100 UNITS/ML SYR SUBCUT SCH (22:50)
[2016-06-26 23:00] LABS: BACTERIA URINE TRACE; RBC URINE 0-2 /hpf (0-2); SQUAMOUS EPITHELIAL CELL URINE RARE /lpf (RARE/1+)
[2016-06-27] MEDS: IPRATROPIUM/ALBUTEROL 0.5-3(2.5)MG/3ML NEB HHN SCH ×6 (00:48→22:17)
[2016-06-27] MEDS: HYDRALAZINE HCL 50MG TABLET PO SCH ×3 (06:05→21:45)
[2016-06-27] MEDS: GABAPENTIN 300MG CAPSULE PO SCH ×3 (06:05→21:43)
[2016-06-27] MEDS: BLOOD SUGAR DIAGNOSTIC STRIP TEST SCH ×4 (06:30→21:43)
[2016-06-27] MEDS: INSULIN LISPRO 100 UNITS/ML SUBCUT SCH ×4 (07:36→21:51)
[2016-06-27 07:51] LABS: INDEX HEMOLYSI 1 (1-3)
[2016-06-27 07:53] LABS: HEMATOCRIT. 31.6 % (36.0-48.0); HEMOGLOBIN. 10.5 g/dL (12.0-16.0); MEAN CORPUSCULAR HEMOGLOBIN 27.1 pg (28.0-32.0); MEAN CORPUSCULAR HGB CONC 33.2 g/dL (31.0-37.0); MEAN CORPUSCULAR VOLUME 81.6 fL (81.0-99.0); MEAN PLATELET VOLUME 8.5 fl (7.4-10.4); PLATELET 402 x1000/uL (130-400); RED BLOOD CELL COUNT 3.87 mill/uL (4.2-5.4); RED CELL DISTRIBUTION WIDTH 15.7 % (11.6-14.6)
[2016-06-27 07:57] LABS: FERRITIN 246 ng/mL (10-291)
[2016-06-27 08:00] VITALS: BP 98/50
[2016-06-27] MEDS: AMLODIPINE 5MG TABLET PO SCH ×2 (08:01→21:43)
[2016-06-27] MEDS: METOPROLOL TARTRATE 50MG TABLET PO SCH ×2 (08:01→21:00)
[2016-06-27 08:10] LABS: CHLORIDE 102 mEq/L (98-107); INDEX HEMOLYSI 1 (1-3); INDEX ICTERIC 1 (1-4); INDEX LIPEMIC 1 (1-3)
[2016-06-27] MEDS: FAMOTIDINE 20MG TABLET PO SCH (08:19)
[2016-06-27] MEDS: MAGNESIUM OXIDE 400MG TABLET PO SCH ×2 (08:19→18:01)
[2016-06-27 08:23] LABS: DIFFERENTIAL COMMENT 1
[2016-06-27] MEDS ORDERED: POTASSIUM CHLORIDE 20MEQ TABLET SR PO SCH (08:30)
[2016-06-27 08:36] LABS: VITAMIN B12 SERUM > 2000 pg/mL (211-911)
[2016-06-27 08:39] LABS: ALANINE AMINOTRANSFERASE 24 IU/L (13-61); ANION GAP 16; CALCIUM 8.6 mg/dL (8.5-10.1); CARBON DIOXIDE 22 mEq/L (21-32); HDL CHOLESTEROL 24 mg/dL (40-59); IRON 62 ug/dL (50-175); LDL CHOLESTEROL 110 mg/dL (5-100); MAGNESIUM 1.8 mg/dL (1.8-2.4); PHOSPHORUS 4.2 mg/dL (2.5-4.9); TOTAL IRON BINDING CAPACITY 176 ug/dL (250-450); TRIGLYCERIDE 261 mg/dL (0-150); UREA NITROGEN BLOOD 15 mg/dL (7-21); eGFR 38 mL/min (>60)
[2016-06-27 10:42] LABS: PLATELET ESTIMATE NORMAL
[2016-06-27 20:39] VITALS: BP 120/50
[2016-06-27] MEDS: INSULIN DETEMIR UD 100 UNITS/ML SYR SUBCUT SCH (21:52)
[2016-06-28] MEDS: IPRATROPIUM/ALBUTEROL 0.5-3(2.5)MG/3ML NEB HHN SCH ×6 (01:52→21:04)
[2016-06-28] MEDS: GABAPENTIN 300MG CAPSULE PO SCH ×3 (06:31→22:23)
[2016-06-28] MEDS: BLOOD SUGAR DIAGNOSTIC STRIP TEST SCH ×4 (06:31→21:00)
[2016-06-28] MEDS: HYDRALAZINE HCL 50MG TABLET PO SCH ×3 (06:32→22:00)
[2016-06-28] MEDS: INSULIN LISPRO 100 UNITS/ML SUBCUT SCH ×4 (06:55→21:00)
[2016-06-28 07:43] LABS: CALCIUM 9.2 mg/dL (8.5-10.1); MAGNESIUM 1.8 mg/dL (1.8-2.4)
[2016-06-28 08:00] VITALS: BP 107/48
[2016-06-28] MEDS: METOPROLOL TARTRATE 50MG TABLET PO SCH ×2 (08:30→21:00)
[2016-06-28] MEDS: AMLODIPINE 5MG TABLET PO SCH ×2 (08:30→22:23)
[2016-06-28] MEDS: FAMOTIDINE 20MG TABLET PO SCH (08:40)
[2016-06-28] MEDS: MAGNESIUM OXIDE 400MG TABLET PO SCH ×2 (08:40→16:46)
[2016-06-28] MEDS ORDERED: PHENOL/SODIUM PHENOLATE 1.4% SRPAY 177ML MM PRN (14:00)
[2016-06-28] MEDS: LIDOCAINE 5% PATCH TOP SCH (16:13)
[2016-06-28 20:00] VITALS: BP 127/60
[2016-06-28] MEDS: INSULIN DETEMIR UD 100 UNITS/ML SYR SUBCUT SCH (22:36)
[2016-06-28] MEDS: ZOLPIDEM TARTRATE 5MG TABLET PO PRN (23:32)
[2016-06-29] MEDS: IPRATROPIUM/ALBUTEROL 0.5-3(2.5)MG/3ML NEB HHN SCH ×6 (01:42→20:18)
[2016-06-29] MEDS: BLOOD SUGAR DIAGNOSTIC STRIP TEST SCH ×4 (06:07→21:22)
[2016-06-29] MEDS: INSULIN LISPRO 100 UNITS/ML SUBCUT SCH ×4 (06:07→21:00)
[2016-06-29 06:10] VITALS: BP 134/73
[2016-06-29] MEDS: GABAPENTIN 300MG CAPSULE PO SCH ×3 (06:29→22:45)
[2016-06-29] MEDS: HYDRALAZINE HCL 50MG TABLET PO SCH ×3 (06:29→22:45)
[2016-06-29 07:03] LABS: HEMATOCRIT. 33.1 % (36.0-48.0); HEMOGLOBIN. 10.9 g/dL (12.0-16.0); MEAN CORPUSCULAR HGB CONC 32.9 g/dL (31.0-37.0); MEAN CORPUSCULAR VOLUME 82.2 fL (81.0-99.0); MEAN PLATELET VOLUME 8.3 fl (7.4-10.4); PLATELET 385 x1000/uL (130-400); RED BLOOD CELL COUNT 4.03 mill/uL (4.2-5.4); WHITE BLOOD COUNT 7.2 x1000/uL (4.5-11.0)
[2016-06-29 07:08] LABS: AMMONIA 19 uMol/L (<32)
[2016-06-29 07:11] LABS: INDEX HEMOLYSI 4 (1-3)
[2016-06-29 07:20] LABS: DIFFERENTIAL COMMENT 1
[2016-06-29 07:32] LABS: CALCIUM 9.2 mg/dL (8.5-10.1); MAGNESIUM 1.6 mg/dL (1.8-2.4); THYROID STIMULATING HORMONE 2.9 uIU/mL (0.36-3.74)
[2016-06-29 08:00] VITALS: BP 122/64
[2016-06-29] MEDS: FAMOTIDINE 20MG TABLET PO SCH (08:52)
[2016-06-29] MEDS: MAGNESIUM OXIDE 400MG TABLET PO SCH ×2 (08:52→16:25)
[2016-06-29] MEDS: METOPROLOL TARTRATE 50MG TABLET PO SCH ×2 (08:53→21:17)
[2016-06-29] MEDS: AMLODIPINE 5MG TABLET PO SCH ×2 (08:53→21:17)
[2016-06-29] MEDS: LIDOCAINE 5% PATCH TOP SCH (08:54)
[2016-06-29 10:50] LABS: PLATELET ESTIMATE NORMAL
[2016-06-29] MEDS ORDERED: MAGNESIUM 2 G PREMIX 50 ML IV NR (11:00)
[2016-06-29 20:00] VITALS: BP 122/57
[2016-06-29] MEDS: INSULIN DETEMIR UD 100 UNITS/ML SYR SUBCUT SCH (22:58)
[2016-06-30] MEDS: IPRATROPIUM/ALBUTEROL 0.5-3(2.5)MG/3ML NEB HHN SCH ×6 (01:16→20:52)
[2016-06-30] MEDS: HYDRALAZINE HCL 50MG TABLET PO SCH ×3 (06:00→22:24)
[2016-06-30] MEDS: GABAPENTIN 300MG CAPSULE PO SCH ×3 (06:16→22:21)
[2016-06-30] MEDS: INSULIN LISPRO 100 UNITS/ML SUBCUT SCH ×4 (06:25→21:00)
[2016-06-30] MEDS: BLOOD SUGAR DIAGNOSTIC STRIP TEST SCH ×4 (06:34→21:00)
[2016-06-30 07:01] LABS: HEMATOCRIT. 33.7 % (36.0-48.0); MEAN CORPUSCULAR HEMOGLOBIN 26.5 pg (28.0-32.0); MEAN CORPUSCULAR HGB CONC 32.6 g/dL (31.0-37.0); MEAN CORPUSCULAR VOLUME 81.2 fL (81.0-99.0); MEAN PLATELET VOLUME 8.2 fl (7.4-10.4); PLATELET 384 x1000/uL (130-400); RED BLOOD CELL COUNT 4.15 mill/uL (4.2-5.4); RED CELL DISTRIBUTION WIDTH 16.2 % (11.6-14.6); WHITE BLOOD COUNT 6.2 x1000/uL (4.5-11.0)
[2016-06-30 07:22] LABS: ALBUMIN 2.1 g/dL (3.4-5.0); BILIRUBIN DIRECT 0.5 mg/dL (0.0-0.2)
[2016-06-30 08:00] VITALS: BP 126/55
[2016-06-30 08:21] LABS: DIFFERENTIAL COMMENT 1
[2016-06-30] MEDS: AMLODIPINE 5MG TABLET PO SCH ×2 (08:47→22:22)
[2016-06-30] MEDS: FAMOTIDINE 20MG TABLET PO SCH (08:48)
[2016-06-30] MEDS: METOPROLOL TARTRATE 50MG TABLET PO SCH ×2 (08:48→22:24)
[2016-06-30] MEDS: MAGNESIUM OXIDE 400MG TABLET PO SCH ×2 (08:48→17:01)
[2016-06-30] MEDS: LIDOCAINE 5% PATCH TOP SCH (08:49)
[2016-06-30 14:47] LABS: ANISOCYTOSIS 1+; PLATELET ESTIMATE NORMAL
[2016-06-30 20:00] VITALS: BP 122/73
[2016-06-30 20:57] LABS: CLARITY URINE CLEAR (CLEAR); COLOR URINE YELLOW (YELLOW); GLUCOSE URINE NEGATIVE (NEGATIVE); KETONES URINE NEGATIVE (NEGATIVE); LEUKOCYTE ESTERASE URINE TRACE (NEGATIVE); NITRITE URINE NEGATIVE (NEGATIVE); OCCULT BLOOD URINE NEGATIVE (NEGATIVE); PROTEIN URINE NEGATIVE (NEGATIVE); SPECIFIC GRAVITY URINE 1.007 (1.005-1.030); UROBILINOGEN URINE 0.2 E.U./dL (0.2-1.0)
[2016-06-30 21:26] LABS: BACTERIA URINE 1+; RBC URINE NONE SEEN /hpf (0-2); SQUAMOUS EPITHELIAL CELL URINE FEW /lpf (RARE/1+); WBC URINE 0-2 /hpf (0-2)
[2016-06-30] MEDS: INSULIN DETEMIR UD 100 UNITS/ML SYR SUBCUT SCH (22:26)
[2016-07-01] MEDS: IPRATROPIUM/ALBUTEROL 0.5-3(2.5)MG/3ML NEB HHN SCH ×6 (04:29→23:08)
[2016-07-01] MEDS: GABAPENTIN 300MG CAPSULE PO SCH (06:05)
[2016-07-01] MEDS: HYDRALAZINE HCL 50MG TABLET PO SCH ×3 (06:06→22:00)
[2016-07-01 06:23] LABS: HEMATOCRIT. 34.4 % (36.0-48.0); HEMOGLOBIN. 11.2 g/dL (12.0-16.0); MEAN CORPUSCULAR HEMOGLOBIN 26.6 pg (28.0-32.0); MEAN CORPUSCULAR HGB CONC 32.7 g/dL (31.0-37.0); MEAN CORPUSCULAR VOLUME 81.4 fL (81.0-99.0); MEAN PLATELET VOLUME 8.1 fl (7.4-10.4); PLATELET 342 x1000/uL (130-400); RED BLOOD CELL COUNT 4.22 mill/uL (4.2-5.4); RED CELL DISTRIBUTION WIDTH 16.2 % (11.6-14.6); WHITE BLOOD COUNT 6.9 x1000/uL (4.5-11.0)
[2016-07-01 06:42] LABS: DIFFERENTIAL COMMENT 1
[2016-07-01] MEDS: BLOOD SUGAR DIAGNOSTIC STRIP TEST SCH ×4 (06:55→21:25)
[2016-07-01] MEDS: INSULIN LISPRO 100 UNITS/ML SUBCUT SCH ×4 (06:55→21:32)
[2016-07-01 07:23] LABS: CALCIUM 9.2 mg/dL (8.5-10.1)
[2016-07-01 08:00] VITALS: BP 110/57
[2016-07-01] MEDS: MAGNESIUM OXIDE 400MG TABLET PO SCH ×3 (09:00→17:00)
[2016-07-01] MEDS: FAMOTIDINE 20MG TABLET PO SCH ×2 (09:00→11:24)
[2016-07-01] MEDS: METOPROLOL TARTRATE 50MG TABLET PO SCH ×2 (09:00→21:00)
[2016-07-01] MEDS: AMLODIPINE 5MG TABLET PO SCH ×2 (09:00→21:00)
[2016-07-01] MEDS: LIDOCAINE 5% PATCH TOP SCH ×2 (09:00→11:24)
[2016-07-01] MEDS: DEXT 5%/0.45% NACL 1000ML 1,000 ML IV SCH (09:37)
[2016-07-01 09:39] LABS: BG BASE EXCESS -0.2 mmol/L (-2.0-2.0); BG CARBOXYHEMOGLOBIN 0.3 % (0.5-1.5); BG DEOXYHEMOGLOBIN 4.7 % (0.0-5.0); BG FRACTION INSPIRED OXYGEN 21; BG HCO3 ACT 23.2 mmol/L (22.0-26.0); BG METHEMOGLOBIN 0.3 % (0.0-1.5); BG OXYGEN SATURATION 95.3 % (92.0-98.5); BG OXYHEMOGLOBIN 94.7 % (94.0-97.0); BG PCO2 33.9 mmHg (35.0-45.0); BG PH 7.454 (7.350-7.450); BG SAMPLE SITE RIGHT RADIAL; BG TOTAL HEMOGLOBIN 11.2 g/dL (12.0-18.0); BG VENT MODE ROOM AIR
[2016-07-01 10:54] LABS: ANISOCYTOSIS 1+; PLATELET ESTIMATE NORMAL
[2016-07-01 20:00] VITALS: BP 107/51
[2016-07-01] MEDS: INSULIN DETEMIR UD 100 UNITS/ML SYR SUBCUT SCH (22:47)
[2016-07-02] MEDS: DEXT 5%/0.45% NACL 1000ML 1,000 ML IV SCH (00:19)
[2016-07-02] MEDS: IPRATROPIUM/ALBUTEROL 0.5-3(2.5)MG/3ML NEB HHN SCH ×2 (03:55→07:15)
[2016-07-02] MEDS: HYDRALAZINE HCL 50MG TABLET PO SCH (06:51)
[2016-07-02] MEDS: BLOOD SUGAR DIAGNOSTIC STRIP TEST SCH (06:55)
[2016-07-02] MEDS: INSULIN LISPRO 100 UNITS/ML SUBCUT SCH (06:56)
[2016-07-02 07:25] LABS: 25-HYDROXY VITAMIN D3 23 ng/mL (.)
[2016-07-02 07:28] LABS: ALANINE AMINOTRANSFERASE 24 IU/L (13-61); ANION GAP 14; BILIRUBIN DIRECT 0.4 mg/dL (0.0-0.2); CALCIUM 8.4 mg/dL (8.5-10.1); CARBON DIOXIDE 24 mEq/L (21-32); CHLORIDE 106 mEq/L (98-107); INDEX ICTERIC 1 (1-4); INDEX LIPEMIC 1 (1-3); MAGNESIUM 1.4 mg/dL (1.8-2.4); UREA NITROGEN BLOOD 13 mg/dL (7-21); eGFR 41 mL/min (>60)
[2016-07-02 07:33] LABS: INDEX HEMOLYSI 4 (1-3)
[2016-07-02 08:00] VITALS: BP 100/47
[2016-07-02] MEDS: LIDOCAINE 5% PATCH TOP SCH (09:00)
[2016-07-02] MEDS ORDERED: METOPROLOL TARTRATE 25MG TABLET PO SCH (09:00)
[2016-07-02] MEDS: MAGNESIUM OXIDE 400MG TABLET PO SCH (09:00)
[2016-07-02] MEDS: AMLODIPINE 5MG TABLET PO SCH (09:00)
[2016-07-02] MEDS: FAMOTIDINE 20MG TABLET PO SCH (09:00)
[2016-07-02 09:06] LABS: BASOPHILS % 1.1 % (0.0-2.0); DIFFERENTIAL COMMENT 0; EOSINOPHILS % 1.4 % (0.0-5.0); HEMATOCRIT. 33.9 % (36.0-48.0); HEMOGLOBIN. 11.3 g/dL (12.0-16.0); LYMPHOCYTES % 34.1 % (20.0-50.0); MEAN CORPUSCULAR HEMOGLOBIN 26.5 pg (28.0-32.0); MEAN CORPUSCULAR HGB CONC 33.3 g/dL (31.0-37.0); MEAN CORPUSCULAR VOLUME 79.7 fL (81.0-99.0); MEAN PLATELET VOLUME 7.9 fl (7.4-10.4); MONOCYTES % 13.4 % (2.0-8.0); PLATELET 380 x1000/uL (130-400); RED BLOOD CELL COUNT 4.25 mill/uL (4.2-5.4); RED CELL DISTRIBUTION WIDTH 15.8 % (11.6-14.6)
[2016-07-02] MEDS ORDERED: MAGNESIUM 4 G PREMIX 100 ML IV NR (10:00)
[2016-07-02 11:00] VITALS: BP 126/73
[2016-07-02] MEDS ORDERED: HYDRALAZINE HCL 25MG TABLET PO SCH (14:00)
[2016-07-02 14:35] LABS: *AMPHETAMINES SCREEN URINE NEGATIVE (NEGATIVE); *BARBITURATES SCREEN URINE NEGATIVE (NEGATIVE); *BENZODIAZEPINES SCREEN URINE NEGATIVE (NEGATIVE); *COCAINE SCREEN URINE NEGATIVE (NEGATIVE); CANNABINOID URINE SCREEN NEGATIVE (NEGATIVE); ECSTASY MDMA SCREEN URINE NEGATIVE (NEGATIVE); METHADONE URINE SCREEN NEGATIVE (NEGATIVE); OPIATES URINE SCREEN NEGATIVE (NEGATIVE); PHENCYCLIDINE URINE SCREEN NEGATIVE (NEGATIVE)
== END 2016-07-02 11:26 | disposition short-term general hospital (02) | DRG 91 ==
PROVIDERS: ADMIT Physical Medicine & Rehabilitation Spinal Cord Injury Medicine; ATTEND Family Medicine Adult Medicine
DX: G92 Toxic encephalopathy (principal); K72.00 Acute and subacute hepatic failure without coma; N17.0 Acute kidney failure with tubular necrosis; A41.9 Sepsis, unspecified organism; E43 Unspecified severe protein-calorie malnutrition; R65.21 Severe sepsis with septic shock; J96.00 Acute respiratory failure, unspecified whether with hypoxia or hypercapnia; J18.9 Pneumonia, unspecified organism; E87.1 Hypo-osmolality and hyponatremia; K83.0 Cholangitis; J98.11 Atelectasis; R53.81 Other malaise; R26.9 Unspecified abnormalities of gait and mobility; D64.9 Anemia, unspecified; D69.6 Thrombocytopenia, unspecified; I48.0 Paroxysmal atrial fibrillation; G89.29 Other chronic pain; M17.9 Osteoarthritis of knee, unspecified; E11.65 Type 2 diabetes mellitus with hyperglycemia; E87.5 Hyperkalemia; E83.42 Hypomagnesemia; E87.6 Hypokalemia; E83.51 Hypocalcemia; E11.42 Type 2 diabetes mellitus with diabetic polyneuropathy; E11.22 Type 2 diabetes mellitus with diabetic chronic kidney disease; I12.9 Hypertensive chronic kidney disease with stage 1 through stage 4 chronic kidney disease, or unspecified chronic kidney disease; N18.9 Chronic kidney disease, unspecified; K21.9 Gastro-esophageal reflux disease without esophagitis; E78.5 Hyperlipidemia, unspecified; R74.0 Nonspecific elevation of levels of transaminase and lactic acid dehydrogenase [LDH]; R13.10 Dysphagia, unspecified; I25.10 Atherosclerotic heart disease of native coronary artery without angina pectoris; K57.90 Diverticulosis of intestine, part unspecified, without perforation or abscess without bleeding; D25.9 Leiomyoma of uterus, unspecified; H70.10 Chronic mastoiditis, unspecified ear; D32.9 Benign neoplasm of meninges, unspecified; M54.5 Low back pain; E78.00 Pure hypercholesterolemia, unspecified; Z85.3 Personal history of malignant neoplasm of breast; Z88.1 Allergy status to other antibiotic agents; Z88.8 Allergy status to other drugs, medicaments and biological substances; Z68.27 Body mass index [BMI] 27.0-27.9, adult; Z90.49 Acquired absence of other specified parts of digestive tract; Z86.011 Personal history of benign neoplasm of the brain
CPT/HCPCS: 36415; 36600; 72100; 73522; 80048; 80053; 80061; 80076; 80305; 81001; 82140; 82248; 82306; 82375; 82607; 82728; 82746; 82805; 82962; 83036; 83540; 83550; 83735; 84100; 84134; 84443; 84630; 85025; 85027; 87086; 87493; 92523; 92610; 93970; 94640; 94664; 97110; 97112; 97116; 97150; 97162; 97167; 97530; 97535; C1893; J1815; J3475; J3490; J7050; J7620; A4315

== ENCOUNTER 2016-07-06 16:45 | Inpatient (IN) | payer MEDICARE, MEDICAID ==
[~2016-07-06] VITALS: Ht 157.5 cm; Wt 60.8 kg
[2016-07-06 16:50] VITALS: BP 85/57
[2016-07-06 17:50] VITALS: BP 130/66
[2016-07-06] MEDS ORDERED: DIPHENHYDRAMINE 50MG/ML VIAL IV NR (18:00)
[2016-07-06] MEDS ORDERED: IPRATROPIUM/ALBUTEROL 0.5-3(2.5)MG/3ML NEB HHN PRN (18:45)
[2016-07-06] MEDS ORDERED: DEXTROSE 50% WATER 50ML SYRINGE IV PRN (18:45)
[2016-07-06] MEDS ORDERED: MAGNESIUM/ALUMINUM HYDROXIDE/SIMETHICONE 30ML UDC PO PRN (18:45)
[2016-07-06 20:00] VITALS: BP 128/60
[2016-07-06] MEDS: AMLODIPINE 5MG TABLET PO SCH (23:13)
[2016-07-06] MEDS: METOPROLOL TARTRATE 25MG TABLET PO SCH (23:14)
[2016-07-06] MEDS: BLOOD SUGAR DIAGNOSTIC STRIP TEST SCH (23:14)
[2016-07-06] MEDS: INSULIN LISPRO 100 UNITS/ML SUBCUT SCH (23:15)
[2016-07-07 00:18] VITALS: BP 128/60
[2016-07-07 07:19] LABS: ALANINE AMINOTRANSFERASE 40 IU/L (13-61); ALBUMIN 1.9 g/dL (3.4-5.0); ANION GAP 15; CALCIUM 9.1 mg/dL (8.5-10.1); CARBON DIOXIDE 23 mEq/L (21-32); CHLORIDE 102 mEq/L (98-107); INDEX HEMOLYSI 1 (1-3); INDEX ICTERIC 1 (1-4); INDEX LIPEMIC 1 (1-3)
[2016-07-07 07:24] LABS: BASOPHILS % 0.6 % (0.0-2.0); DIFFERENTIAL COMMENT 0; EOSINOPHILS % 2.4 % (0.0-5.0); HEMATOCRIT. 33.4 % (36.0-48.0); HEMOGLOBIN. 11.2 g/dL (12.0-16.0); LYMPHOCYTES % 29.9 % (20.0-50.0); MEAN CORPUSCULAR HEMOGLOBIN 26.6 pg (28.0-32.0); MEAN CORPUSCULAR HGB CONC 33.5 g/dL (31.0-37.0); MEAN CORPUSCULAR VOLUME 79.3 fL (81.0-99.0); MONOCYTES % 13.1 % (2.0-8.0); PLATELET 267 x1000/uL (130-400); PREALBUMIN 4.3 mg/dL (20.0-40.0); RED BLOOD CELL COUNT 4.21 mill/uL (4.2-5.4); RED CELL DISTRIBUTION WIDTH 15.1 % (11.6-14.6); UREA NITROGEN BLOOD 4 mg/dL (7-21); WHITE BLOOD COUNT 8.7 x1000/uL (4.5-11.0); eGFR > 60 mL/min (>60)
[2016-07-07 08:00] VITALS: BP 105/49
[2016-07-07] MEDS: METOPROLOL TARTRATE 25MG TABLET PO SCH ×2 (08:21→22:23)
[2016-07-07] MEDS: AMLODIPINE 5MG TABLET PO SCH (08:21)
[2016-07-07] MEDS: INSULIN LISPRO 100 UNITS/ML SUBCUT SCH ×4 (08:22→21:00)
[2016-07-07] MEDS ORDERED: POTASSIUM CHLORIDE 20MEQ TABLET SR PO NR (10:15)
[2016-07-07] MEDS ORDERED: POTASSIUM CHLORIDE 20MEQ TABLET SR PO ONE (10:15)
[2016-07-07 10:31] LABS: MAGNESIUM 1.6 mg/dL (1.8-2.4); PHOSPHORUS 3.8 mg/dL (2.5-4.9)
[2016-07-07] MEDS: MAGNESIUM OXIDE 400MG TABLET PO SCH ×4 (11:32→22:24)
[2016-07-07] MEDS: BLOOD SUGAR DIAGNOSTIC STRIP TEST SCH ×3 (11:33→21:00)
[2016-07-07 20:00] VITALS: BP 112/49
[2016-07-07] MEDS: AMLODIPINE 2.5MG TABLET PO SCH (22:22)
[2016-07-08 06:56] LABS: ANION GAP 14; CALCIUM 9.4 mg/dL (8.5-10.1); CARBON DIOXIDE 21 mEq/L (21-32); CHLORIDE 102 mEq/L (98-107); INDEX HEMOLYSI 2 (1-3); INDEX ICTERIC 1 (1-4); INDEX LIPEMIC 1 (1-3); MAGNESIUM 1.5 mg/dL (1.8-2.4); UREA NITROGEN BLOOD 6 mg/dL (7-21); eGFR > 60 mL/min (>60)
[2016-07-08] MEDS: MAGNESIUM OXIDE 400MG TABLET PO SCH ×3 (07:10→17:20)
[2016-07-08] MEDS: BLOOD SUGAR DIAGNOSTIC STRIP TEST SCH ×4 (07:10→21:27)
[2016-07-08 07:13] LABS: BASOPHILS % 0.8 % (0.0-2.0); DIFFERENTIAL COMMENT 0; HEMATOCRIT. 35.1 % (36.0-48.0); HEMOGLOBIN. 11.5 g/dL (12.0-16.0); LYMPHOCYTES % 33.9 % (20.0-50.0); MEAN CORPUSCULAR HEMOGLOBIN 26.1 pg (28.0-32.0); MEAN CORPUSCULAR HGB CONC 32.7 g/dL (31.0-37.0); MEAN CORPUSCULAR VOLUME 79.8 fL (81.0-99.0); MEAN PLATELET VOLUME 8.5 fl (7.4-10.4); MONOCYTES % 14.8 % (2.0-8.0); NEUTROPHILS % 47.5 % (40.0-76.0); PLATELET 274 x1000/uL (130-400); RED CELL DISTRIBUTION WIDTH 15.2 % (11.6-14.6); WHITE BLOOD COUNT 7.8 x1000/uL (4.5-11.0)
[2016-07-08] MEDS: INSULIN LISPRO 100 UNITS/ML SUBCUT SCH ×4 (07:13→21:00)
[2016-07-08 08:00] VITALS: BP 100/48
[2016-07-08] MEDS ORDERED: LIDOCAINE 5% PATCH TOP SCH ×2 (09:00→11:06)
[2016-07-08] MEDS: AMLODIPINE 2.5MG TABLET PO SCH ×2 (09:00→21:00)
[2016-07-08] MEDS: METOPROLOL TARTRATE 25MG TABLET PO SCH ×2 (09:00→21:00)
[2016-07-08] MEDS: SODIUM CHLORIDE 0.9% 500 ML IV NR ×2 (11:27→17:23)
[2016-07-08] MEDS ORDERED: MAGNESIUM 1 G PREMIX 100 ML IV NR (11:30)
[2016-07-08 20:00] VITALS: BP 81/32
[2016-07-09 06:10] LABS: CHLORIDE 100 mEq/L (98-107); INDEX HEMOLYSI 1 (1-3); INDEX ICTERIC 1 (1-4); INDEX LIPEMIC 1 (1-3)
[2016-07-09 06:19] LABS: ALANINE AMINOTRANSFERASE 36 IU/L (13-61); ANION GAP 15; CARBON DIOXIDE 21 mEq/L (21-32); MAGNESIUM 1.4 mg/dL (1.8-2.4); PHOSPHORUS 3.8 mg/dL (2.5-4.9); eGFR > 60 mL/min (>60)
[2016-07-09] MEDS: BLOOD SUGAR DIAGNOSTIC STRIP TEST SCH ×4 (06:28→21:00)
[2016-07-09] MEDS: INSULIN LISPRO 100 UNITS/ML SUBCUT SCH ×4 (06:29→22:15)
[2016-07-09 06:36] LABS: BASOPHILS % 0.8 % (0.0-2.0); DIFFERENTIAL COMMENT 0; EOSINOPHILS % 2.6 % (0.0-5.0); HEMATOCRIT. 34.3 % (36.0-48.0); HEMOGLOBIN. 11.4 g/dL (12.0-16.0); LYMPHOCYTES % 31.9 % (20.0-50.0); MEAN CORPUSCULAR HEMOGLOBIN 26.4 pg (28.0-32.0); MEAN CORPUSCULAR HGB CONC 33.1 g/dL (31.0-37.0); MEAN CORPUSCULAR VOLUME 79.6 fL (81.0-99.0); MEAN PLATELET VOLUME 8.4 fl (7.4-10.4); MONOCYTES % 14.1 % (2.0-8.0); NEUTROPHILS % 50.6 % (40.0-76.0); PLATELET 301 x1000/uL (130-400); RED BLOOD CELL COUNT 4.31 mill/uL (4.2-5.4); RED CELL DISTRIBUTION WIDTH 15.4 % (11.6-14.6); WHITE BLOOD COUNT 8.4 x1000/uL (4.5-11.0)
[2016-07-09 06:45] LABS: CALCIUM 9.4 mg/dL (8.5-10.1); UREA NITROGEN BLOOD 6 mg/dL (7-21)
[2016-07-09 08:00] VITALS: BP 107/45
[2016-07-09] MEDS: METOPROLOL TARTRATE 25MG TABLET PO SCH ×2 (08:37→22:13)
[2016-07-09] MEDS: AMLODIPINE 2.5MG TABLET PO SCH ×2 (08:37→21:00)
[2016-07-09] MEDS: LACTOBACILLUS GG CAPSULE PO SCH (09:26)
[2016-07-09] MEDS ORDERED: MAGNESIUM 2 G PREMIX 50 ML IV NR (10:00)
[2016-07-09] MEDS: LIDOCAINE 5% PATCH TOP SCH (11:13)
[2016-07-09] MEDS ORDERED: LOPERAMIDE HCL 2MG CAPSULE PO NR (12:30)
[2016-07-09] MEDS ORDERED: POTASSIUM CHLORIDE 20MEQ TABLET SR PO NR (13:30)
[2016-07-09 20:00] VITALS: BP 81/19
[2016-07-10] MEDS: BLOOD SUGAR DIAGNOSTIC STRIP TEST SCH ×4 (06:30→21:00)
[2016-07-10 07:10] LABS: CALCIUM 9.8 mg/dL (8.5-10.1); HEMOGLOBIN. 10.7 g/dL (12.0-16.0); MAGNESIUM 1.7 mg/dL (1.8-2.4); MEAN CORPUSCULAR HEMOGLOBIN 26.5 pg (28.0-32.0); MEAN CORPUSCULAR HGB CONC 33.3 g/dL (31.0-37.0); MEAN CORPUSCULAR VOLUME 79.6 fL (81.0-99.0); MEAN PLATELET VOLUME 8.1 fl (7.4-10.4); PHOSPHORUS 4.1 mg/dL (2.5-4.9); PLATELET 288 x1000/uL (130-400); RED BLOOD CELL COUNT 4.02 mill/uL (4.2-5.4); RED CELL DISTRIBUTION WIDTH 15.6 % (11.6-14.6); WHITE BLOOD COUNT 7.8 x1000/uL (4.5-11.0)
[2016-07-10 07:30] LABS: DIFFERENTIAL COMMENT 1
[2016-07-10 08:00] VITALS: BP 107/57
[2016-07-10] MEDS: METOPROLOL TARTRATE 25MG TABLET PO SCH ×2 (09:00→22:41)
[2016-07-10] MEDS: LIDOCAINE 5% PATCH TOP SCH ×2 (09:00→16:19)
[2016-07-10] MEDS: INSULIN LISPRO 100 UNITS/ML SUBCUT SCH ×4 (09:00→21:00)
[2016-07-10] MEDS: AMLODIPINE 2.5MG TABLET PO SCH (09:00)
[2016-07-10] MEDS: LACTOBACILLUS GG CAPSULE PO SCH (09:00)
[2016-07-10] MEDS: ONDANSETRON HCL 4MG/2ML VIAL IV PRN (11:02)
[2016-07-10 13:50] LABS: PLATELET ESTIMATE NORMAL
[2016-07-10] MEDS: MAGNESIUM OXIDE 400MG TABLET PO SCH (16:18)
[2016-07-10 20:00] VITALS: BP 113/55
[2016-07-11 06:15] LABS: HEMATOCRIT. 33.7 % (36.0-48.0); MEAN CORPUSCULAR HGB CONC 32.7 g/dL (31.0-37.0); MEAN CORPUSCULAR VOLUME 79.5 fL (81.0-99.0); MEAN PLATELET VOLUME 7.9 fl (7.4-10.4); PLATELET 319 x1000/uL (130-400); RED BLOOD CELL COUNT 4.24 mill/uL (4.2-5.4); RED CELL DISTRIBUTION WIDTH 15.8 % (11.6-14.6)
[2016-07-11] MEDS: BLOOD SUGAR DIAGNOSTIC STRIP TEST SCH ×4 (06:30→21:43)
[2016-07-11 06:41] LABS: CALCIUM 10.3 mg/dL (8.5-10.1)
[2016-07-11 06:45] LABS: BILIRUBIN DIRECT 0.4 mg/dL (0.0-0.2); MAGNESIUM 1.4 mg/dL (1.8-2.4)
[2016-07-11 06:56] LABS: DIFFERENTIAL COMMENT 1
[2016-07-11 08:00] VITALS: BP 93/46
[2016-07-11] MEDS: MAGNESIUM OXIDE 400MG TABLET PO SCH (08:00)
[2016-07-11] MEDS: ONDANSETRON HCL 4MG/2ML VIAL IV PRN (08:00)
[2016-07-11] MEDS: LACTOBACILLUS GG CAPSULE PO SCH (08:00)
[2016-07-11] MEDS: INSULIN LISPRO 100 UNITS/ML SUBCUT SCH ×4 (08:01→21:00)
[2016-07-11] MEDS: METOPROLOL TARTRATE 25MG TABLET PO SCH ×2 (08:01→21:43)
[2016-07-11] MEDS: AMLODIPINE 2.5MG TABLET PO SCH ×2 (08:01→21:00)
[2016-07-11] MEDS: LIDOCAINE 5% PATCH TOP SCH (08:02)
[2016-07-11] MEDS ORDERED: MAGNESIUM 2 G PREMIX 50 ML IV SCH (11:00)
[2016-07-11] MEDS: DEXT 5%/0.9% NACL 1,000 ML IV SCH (11:25)
[2016-07-11 13:53] LABS: PLATELET ESTIMATE NORMAL
[2016-07-11 20:00] VITALS: BP 127/69
[2016-07-11 21:26] LABS: CHLORIDE 105 mEq/L (98-107); INDEX HEMOLYSI 2 (1-3); INDEX ICTERIC 1 (1-4); INDEX LIPEMIC 1 (1-3)
[2016-07-11 21:31] LABS: ALBUMIN 2.1 g/dL (3.4-5.0); ANION GAP 14; CALCIUM 10.9 mg/dL (8.5-10.1); CARBON DIOXIDE 20 mEq/L (21-32); UREA NITROGEN BLOOD 8 mg/dL (7-21)
[2016-07-11 21:35] LABS: ALANINE AMINOTRANSFERASE 36 IU/L (13-61); eGFR 48 mL/min (>60)
[2016-07-12] MEDS: DEXT 5%/0.9% NACL 1,000 ML IV SCH (01:40)
[2016-07-12] MEDS: BLOOD SUGAR DIAGNOSTIC STRIP TEST SCH (06:30)
[2016-07-12 06:58] LABS: HEMATOCRIT. 34.9 % (36.0-48.0); HEMOGLOBIN. 11.6 g/dL (12.0-16.0); MEAN CORPUSCULAR HEMOGLOBIN 26.3 pg (28.0-32.0); MEAN CORPUSCULAR HGB CONC 33.2 g/dL (31.0-37.0); MEAN CORPUSCULAR VOLUME 79.4 fL (81.0-99.0); MEAN PLATELET VOLUME 8.1 fl (7.4-10.4); PLATELET 347 x1000/uL (130-400); RED CELL DISTRIBUTION WIDTH 15.8 % (11.6-14.6); WHITE BLOOD COUNT 10.8 x1000/uL (4.5-11.0)
[2016-07-12 07:22] LABS: DIFFERENTIAL COMMENT 1
[2016-07-12 07:23] LABS: ALBUMIN 1.8 g/dL (3.4-5.0); BILIRUBIN DIRECT 0.3 mg/dL (0.0-0.2); CALCIUM 10.6 mg/dL (8.5-10.1); MAGNESIUM 2.2 mg/dL (1.8-2.4); PHOSPHORUS 3.9 mg/dL (2.5-4.9)
[2016-07-12 08:00] VITALS: BP 119/74
[2016-07-12] MEDS: AMLODIPINE 2.5MG TABLET PO SCH (09:00)
[2016-07-12] MEDS: METOPROLOL TARTRATE 25MG TABLET PO SCH (09:00)
[2016-07-12] MEDS: INSULIN LISPRO 100 UNITS/ML SUBCUT SCH (09:00)
[2016-07-12] MEDS: LACTOBACILLUS GG CAPSULE PO SCH (09:16)
[2016-07-12 09:18] VITALS: BP 93/46
[2016-07-12] MEDS: LIDOCAINE 5% PATCH TOP SCH (09:18)
[2016-07-12] MEDS ORDERED: SODIUM CHLORIDE 0.9% 500 ML IV NR (11:30)
[2016-07-12 13:18] LABS: PLATELET ESTIMATE NORMAL
== END 2016-07-12 11:30 | disposition short-term general hospital (02) | DRG 91 ==
PROVIDERS: ADMIT Physical Medicine & Rehabilitation Spinal Cord Injury Medicine; ATTEND Family Medicine Adult Medicine
DX: G72.81 Critical illness myopathy (principal); A41.9 Sepsis, unspecified organism; G92 Toxic encephalopathy; E43 Unspecified severe protein-calorie malnutrition; N17.0 Acute kidney failure with tubular necrosis; J96.90 Respiratory failure, unspecified, unspecified whether with hypoxia or hypercapnia; R65.21 Severe sepsis with septic shock; E87.1 Hypo-osmolality and hyponatremia; E87.6 Hypokalemia; E11.22 Type 2 diabetes mellitus with diabetic chronic kidney disease; I12.9 Hypertensive chronic kidney disease with stage 1 through stage 4 chronic kidney disease, or unspecified chronic kidney disease; N18.9 Chronic kidney disease, unspecified; D69.6 Thrombocytopenia, unspecified; E83.51 Hypocalcemia; E83.42 Hypomagnesemia; E78.5 Hyperlipidemia, unspecified; K21.9 Gastro-esophageal reflux disease without esophagitis; M17.9 Osteoarthritis of knee, unspecified; R13.10 Dysphagia, unspecified; I48.0 Paroxysmal atrial fibrillation; R26.9 Unspecified abnormalities of gait and mobility; E11.42 Type 2 diabetes mellitus with diabetic polyneuropathy; G89.29 Other chronic pain; R74.0 Nonspecific elevation of levels of transaminase and lactic acid dehydrogenase [LDH]; E87.5 Hyperkalemia; Z68.24 Body mass index [BMI] 24.0-24.9, adult; Z88.1 Allergy status to other antibiotic agents; Z82.49 Family history of ischemic heart disease and other diseases of the circulatory system; Z83.3 Family history of diabetes mellitus; Z85.3 Personal history of malignant neoplasm of breast; Z90.49 Acquired absence of other specified parts of digestive tract; Z86.011 Personal history of benign neoplasm of the brain; Z88.8 Allergy status to other drugs, medicaments and biological substances
CPT/HCPCS: 36415; 74000; 76700; 80048; 80053; 80076; 82962; 83735; 84100; 84134; 85025; 87493; 92523; 92610; 93970; 97110; 97116; 97162; 97167; 97530; 97532; 97535; J1815; J2405; J3475; J7040; J7042; J7050

== ENCOUNTER → 2017-01-17 | Outpatient (CLI) | payer MEDICARE, MEDICAID ==
[~2017-01-17] MED LIST changes: +ACET-2178 PO; -AMLO1CAP2 PO; -ATEN-42 PO; +BISA-81 PO; -CYCL5TAB PO; +DILT180C69 PO; -DOCU-138 PO; +DOCU-150 PO; -GABA-531 PO; -GLIP5TAB12 PO; +HYDR-4134 PO; +LOPE2TAB26 PO; +LOV40 SQ; +PRED5TAB48 PO; -PREG75CA PO; -SITA1TAB8 PO; -ZOLP10TA6 PO
== END | disposition home or self-care (01) ==
LOC: RAD 13:15
PROVIDERS: ATTEND Specialist
DX: M19.011 Primary osteoarthritis, right shoulder (principal)
CPT/HCPCS: 73030

== ENCOUNTER 2017-03-05 22:48 | Emergency (ER) | payer MEDICARE, MEDICAID ==
[~2017-03-05] VITALS: Ht 157.5 cm; Wt 56.0 kg
[2017-03-05] MEDS ORDERED: SODIUM CHLORIDE 0.9% 1,000 ML IV ONE (23:42)
[2017-03-05] MEDS ORDERED: INSULIN REGULAR (HUMULIN R) 300UNITS/3ML SUBCUT ONE (23:45)
[2017-03-06 00:09] LABS: BASOPHILS % 0.9 % (0.0-2.0); EOSINOPHILS % 0.8 % (0.0-5.0); HEMATOCRIT. 44.8 % (36.0-48.0); HEMOGLOBIN. 14.5 g/dL (12.0-16.0); LYMPHOCYTES % 20.9 % (20.0-50.0); MEAN CORPUSCULAR HEMOGLOBIN 26.5 pg (28.0-32.0); MEAN PLATELET VOLUME 8.7 fl (7.4-10.4); MONOCYTES % 5.7 % (2.0-8.0); NEUTROPHILS % 71.7 % (40.0-76.0); PLATELET 227 x1000/uL (130-400); RED BLOOD CELL COUNT 5.47 mill/uL (4.2-5.4); RED CELL DISTRIBUTION WIDTH 14.7 % (11.6-14.6)
[2017-03-06 00:15] LABS: CHLORIDE 99 mEq/L (98-107)
[2017-03-06 00:24] LABS: BETA HYDROXYBUTYRATE 0.2 mMol/L (0.0-0.3); CARBON DIOXIDE 21 mEq/L (21-32)
[2017-03-06 03:12] VITALS: BP 180/73
== END 2017-03-06 03:50 | disposition home or self-care (01) ==
LOC: ER 22:48
DX: E11.65 Type 2 diabetes mellitus with hyperglycemia (principal); I10 Essential (primary) hypertension; E78.00 Pure hypercholesterolemia, unspecified; M19.90 Unspecified osteoarthritis, unspecified site; Z98.890 Other specified postprocedural states; Z90.49 Acquired absence of other specified parts of digestive tract; Z88.3 Allergy status to other anti-infective agents; Z88.8 Allergy status to other drugs, medicaments and biological substances
CPT/HCPCS: 36415; 80053; 82010; 82962; 85025; 96360; 96361; 96372; 99285; J1815; J7030

== ENCOUNTER 2018-02-05 20:43 | Inpatient (IN) | payer MEDICARE, MEDICAID ==
[~2018-02-05] VITALS: Ht 154.9 cm; Wt 80.3 kg
[~2018-02-05 20:43] MED LIST changes: +DILT180C66 PO; -DILT180C69 PO
[2018-02-05] MEDS ORDERED: KETOROLAC 30MG/ML VIAL IV STA (22:01)
[2018-02-05] MEDS ORDERED: SODIUM CHLORIDE 0.9% 1,000 ML IV ONE (22:01)
[2018-02-05] MEDS ORDERED: ONDANSETRON HCL 4MG/2ML INJ IV STA (22:01)
[2018-02-05 22:21] LABS: CLARITY URINE CLEAR (CLEAR); COLOR URINE YELLOW (YELLOW); KETONES URINE NEGATIVE (NEGATIVE); LEUKOCYTE ESTERASE URINE TRACE (NEGATIVE); NITRITE URINE NEGATIVE (NEGATIVE); OCCULT BLOOD URINE NEGATIVE (NEGATIVE); PROTEIN URINE NEGATIVE (NEGATIVE); SPECIFIC GRAVITY URINE 1.001 (1.005-1.030); UROBILINOGEN URINE 0.2 E.U./dL (0.2-1.0)
[2018-02-05 23:50] LABS: HEMATOCRIT. 45.9 % (36.0-48.0); HEMOGLOBIN. 14.6 g/dL (12.0-16.0); MEAN CORPUSCULAR HEMOGLOBIN 26.2 pg (28.0-32.0); MEAN CORPUSCULAR VOLUME 82.5 fL (81.0-99.0); MEAN PLATELET VOLUME 8.3 fl (7.4-10.4); PLATELET 216 x1000/uL (130-400); RED BLOOD CELL COUNT 5.56 mill/uL (4.2-5.4); RED CELL DISTRIBUTION WIDTH 14.8 % (11.6-14.6)
[2018-02-05 23:57] LABS: CHLORIDE 105 mEq/L (98-107)
[2018-02-06] VITALS (56 sets, daily range): BP systolic 57–154; BP diastolic 25–106
[2018-02-06 00:23] LABS: PROTHROMBIN TIME 10.4 sec (9.1-11.1)
[2018-02-06] MEDS ORDERED: POTASSIUM CHLORIDE 20MEQ TABLET SR PO ONE (00:30)
[2018-02-06 00:39] LABS: PLATELET ESTIMATE NORMAL
[2018-02-06] MEDS ORDERED: PIPERACILLIN/TAZ 3.375G PREMIX 50 ML IV ONE (00:45)
[2018-02-06] MEDS ORDERED: VANCOMYCIN 1 G PREMIX 200 ML IV ONE (00:45)
[2018-02-06] MEDS ORDERED: WATER IV SCH (04:45)
[2018-02-06] MEDS ORDERED: DEXT 5% IV SCH (04:45)
[2018-02-06] MEDS ORDERED: PIPERACILLIN SODIUM IV SCH (04:45)
[2018-02-06] MEDS ORDERED: TAZOBACTAM IV SCH (04:45)
[2018-02-06] MEDS ORDERED: SODIUM CHLORIDE 0.9% 500 ML IV PRN (05:00)
[2018-02-06] MEDS ORDERED: MORPHINE SULFATE 4 MG/ML CPJ (NOT FOR IM USE) IV PRN (05:00)
[2018-02-06] MEDS ORDERED: ACETAMINOPHEN 325MG TABLET PO PRN (05:00)
[2018-02-06] MEDS ORDERED: DEXTROSE 50% WATER 50ML SYRINGE IV PRN (05:00)
[2018-02-06] MEDS ORDERED: DEXT 5%/0.9% NACL KCL 20MEQ/L 1,000 ML IV SCH (07:00)
[2018-02-06] MEDS: BLOOD SUGAR DIAGNOSTIC STRIP TEST SCH ×4 (07:40→22:00)
[2018-02-06] MEDS: PIPERACILLIN/TAZ 2.25G PREMIX 50 ML IV SCH ×3 (08:00→20:31)
[2018-02-06] MEDS: INSULIN LISPRO 100 UNITS/ML SUBCUT SCH ×3 (08:10→17:08)
[2018-02-06] MEDS ORDERED: NOREPINEPHRINE 4 MG in DEXT 5% WATER 246 ML IV PRN (08:30)
[2018-02-06] MEDS: NEBIVOLOL HCL 5 MG TABLET PO SCH (08:41)
[2018-02-06] MEDS ORDERED: LIDOCAINE HCL 1% 20ML VIAL (Pyxis) INJ ONE (08:47)
[2018-02-06] MEDS: EZETIMIBE 10MG TABLET PO SCH (09:00)
[2018-02-06] MEDS ORDERED: NOREPINEPHRINE 8 MG in DEXT 5% WATER 492 ML IV PRN (11:00)
[2018-02-06] MEDS: NOREPINEPHRINE 32 MG in DEXT 5% WATER 468 ML IV PRN (12:00)
[2018-02-06] MEDS: GABAPENTIN 300MG CAPSULE PO SCH ×2 (12:01→21:00)
[2018-02-06] MEDS: PANTOPRAZOLE SODIUM 40 MG/VIAL IV SCH (12:01)
[2018-02-06] MEDS: PHENYLEPHRINE 40 MG in DEXT 5% WATER 246 ML IV PRN ×3 (12:01→23:21)
[2018-02-06] MEDS: PREDNISONE 5MG TABLET PO SCH ×2 (12:01→21:00)
[2018-02-06 12:10] LABS: HEMATOCRIT. 45.1 % (36.0-48.0); HEMOGLOBIN. 14.4 g/dL (12.0-16.0); MEAN CORPUSCULAR HEMOGLOBIN 26.3 pg (28.0-32.0); MEAN CORPUSCULAR VOLUME 81.9 fL (81.0-99.0); MEAN PLATELET VOLUME 8.7 fl (7.4-10.4); PLATELET 222 x1000/uL (130-400); RED CELL DISTRIBUTION WIDTH 15.2 % (11.6-14.6)
[2018-02-06 12:15] LABS: CHLORIDE 110 mEq/L (98-107)
[2018-02-06 12:22] LABS: AMYLASE 33 IU/L (25-115)
[2018-02-06 12:24] LABS: T4 FREE 1.86 ng/dL (0.76-1.46)
[2018-02-06 12:50] LABS: PLATELET ESTIMATE NORMAL
[2018-02-06 13:12] LABS: HEPATITIS B SURFACE ANTIGEN NEGATIVE
[2018-02-06 13:42] LABS: HEPATITIS A AB IGM NEGATIVE (NEGATIVE)
[2018-02-06] MEDS: HYDROCORTISONE SOD SUCCINATE 100 MG/2 ML VIAL IV SCH ×2 (14:27→23:19)
[2018-02-06] MEDS: SODIUM BICARBONATE 100 MEQ in DEXTROSE 5% WATER 1,000 ML IV SCH (14:39)
[2018-02-06] MEDS ORDERED: DILTIAZEM HCL 180MG CAPSULE CD 24HR PO SCH (19:00)
[2018-02-06] MEDS: MORPHINE SULFATE 4 MG/ML CPJ (NOT FOR IM USE) IV PRN (20:28)
[2018-02-06] MEDS: ONDANSETRON HCL 4MG/2ML INJ IV PRN (20:28)
[2018-02-06] MEDS: ATORVASTATIN CALCIUM 40MG TABLET PO SCH (21:00)
[2018-02-06] MEDS ORDERED: INSULIN GLARGINE UD 100 UNITS/ML SYR SUBCUT SCH (22:00)
[2018-02-07] VITALS (92 sets, daily range): BP systolic 67–179; BP diastolic 37–140
[2018-02-07] MEDS: PIPERACILLIN/TAZ 2.25G PREMIX 50 ML IV SCH ×4 (02:00→21:22)
[2018-02-07] MEDS: ONDANSETRON HCL 4MG/2ML INJ IV PRN (03:47)
[2018-02-07] MEDS: MORPHINE SULFATE 4 MG/ML CPJ (NOT FOR IM USE) IV PRN (03:47)
[2018-02-07] MEDS: PHENYLEPHRINE 40 MG in DEXT 5% WATER 246 ML IV PRN (03:47)
[2018-02-07 06:03] LABS: HEMATOCRIT. 46.4 % (36.0-48.0); HEMOGLOBIN. 15.1 g/dL (12.0-16.0); MEAN CORPUSCULAR HEMOGLOBIN 27.4 pg (28.0-32.0); MEAN CORPUSCULAR VOLUME 83.9 fL (81.0-99.0); MEAN PLATELET VOLUME 8.7 fl (7.4-10.4); PLATELET 156 x1000/uL (130-400); RED BLOOD CELL COUNT 5.53 mill/uL (4.2-5.4); RED CELL DISTRIBUTION WIDTH 15.2 % (11.6-14.6)
[2018-02-07] MEDS: HYDROCORTISONE SOD SUCCINATE 100 MG/2 ML VIAL IV SCH (06:59)
[2018-02-07] MEDS: BLOOD SUGAR DIAGNOSTIC STRIP TEST SCH ×3 (07:50→17:21)
[2018-02-07] MEDS: NOREPINEPHRINE 32 MG in DEXT 5% WATER 468 ML IV PRN (08:00)
[2018-02-07] MEDS: NEBIVOLOL HCL 5 MG TABLET PO SCH (08:26)
[2018-02-07 08:49] LABS: BG BASE EXCESS -5.4 mmol/L (-2.0-2.0); BG DEOXYHEMOGLOBIN 6.4 % (0.0-5.0); BG FRACTION INSPIRED OXYGEN 32; BG HCO3 ACT 16.9 mmol/L (22.0-26.0); BG METHEMOGLOBIN 0.3 % (0.0-1.5); BG OXYGEN SATURATION 93.5 % (92.0-98.5); BG OXYHEMOGLOBIN 92.3 % (94.0-97.0); BG PCO2 25.4 mmHg (35.0-45.0); BG PH 7.441 (7.350-7.450); BG PO2 62.5 mmHg (75.0-100.0); BG SAMPLE SITE RIGHT RADIAL; BG TOTAL HEMOGLOBIN 14.5 g/dL (12.0-18.0); BG VENT MODE NASAL CANNULA
[2018-02-07 08:58] LABS: CHLORIDE 98 mEq/L (98-107)
[2018-02-07] MEDS: PREDNISONE 5MG TABLET PO SCH ×2 (09:00→21:00)
[2018-02-07] MEDS: GABAPENTIN 300MG CAPSULE PO SCH ×2 (09:00→21:00)
[2018-02-07] MEDS ORDERED: ENOXAPARIN 40MG/0.4ML SYR SUBCUT SCH (09:00)
[2018-02-07] MEDS: PANTOPRAZOLE SODIUM 40 MG/VIAL IV SCH (09:00)
[2018-02-07] MEDS ORDERED: PIPERACILLIN/TAZ 2.25G PREMIX 50 ML IV SCH (09:00)
[2018-02-07] MEDS ORDERED: VANCOMYCIN 1 G PREMIX 200 ML IV SCH (09:00)
[2018-02-07] MEDS ORDERED: PNEUMOCOCCAL 23-VAL P-SAC VAC 0.5 ML IM ONE (09:00)
[2018-02-07] MEDS ORDERED: INFLUENZA VIRUS VACCINE(AFLURIA) 0.5ML SYR IM ONE (09:00)
[2018-02-07] MEDS: EZETIMIBE 10MG TABLET PO SCH (09:00)
[2018-02-07 09:08] LABS: CREATINE KINASE 289 IU/L (26-192)
[2018-02-07] MEDS: ACETAMINOPHEN 650MG SUPP PR PRN (09:13)
[2018-02-07] MEDS: INSULIN LISPRO (HIGH DOSE) 100 UNITS/ML SUBCUT SCH ×2 (09:15→13:17)
[2018-02-07] MEDS: SODIUM BICARBONATE 100 MEQ in DEXTROSE 5% WATER 1,000 ML IV SCH (09:16)
[2018-02-07 09:51] LABS: PLATELET ESTIMATE NORMAL
[2018-02-07] MEDS ORDERED: VANCOMYCIN 750 MG PREMIX 150 ML IV SCH (11:00)
[2018-02-07] MEDS: SODIUM BICARBONATE 100 MEQ in SODIUM CHLORIDE 0.45% 1,000 ML IV SCH (13:14)
[2018-02-07] MEDS: HYDROCORTISONE SOD SUCCINATE IV SCH ×2 (13:17→22:35)
[2018-02-07] MEDS: SODIUM CHLORIDE 0.9% IV SCH ×2 (13:17→22:35)
[2018-02-07] MEDS ORDERED: DIPHENHYDRAMINE 50MG/ML VIAL IV SCH (13:30)
[2018-02-07] MEDS ORDERED: MAGNESIUM SULFATE 3 GM in DEXT 5% WATER 96 ML IV ONE (13:30)
[2018-02-07] MEDS ORDERED: MAGNESIUM 2 G PREMIX 50 ML IV SCH (15:00)
[2018-02-07] MEDS: INSULIN LISPRO 100 UNITS/ML SUBCUT SCH (17:40)
[2018-02-07] MEDS: ATORVASTATIN CALCIUM 40MG TABLET PO SCH (21:00)
[2018-02-07] MEDS ORDERED: INSULIN GLARGINE UD 100 UNITS/ML SYR SUBCUT SCH (22:00)
[2018-02-07] MEDS: INSULIN GLARGINE UD 100 UNITS/ML SYR SUBCUT SCH (22:36)
[2018-02-08] VITALS (95 sets, daily range): BP systolic 80–150; BP diastolic 27–82
[2018-02-08] MEDS: PIPERACILLIN/TAZ 2.25G PREMIX 50 ML IV SCH ×4 (02:00→20:09)
[2018-02-08] MEDS: HYDROCORTISONE SOD SUCCINATE IV SCH ×3 (05:01→21:07)
[2018-02-08] MEDS: SODIUM CHLORIDE 0.9% IV SCH ×3 (05:01→21:07)
[2018-02-08] MEDS: ACETAMINOPHEN 650MG SUPP PR PRN (05:01)
[2018-02-08] MEDS: SODIUM BICARBONATE 100 MEQ in SODIUM CHLORIDE 0.45% 1,000 ML IV SCH (05:01)
[2018-02-08 05:45] LABS: HEMATOCRIT. 43.9 % (36.0-48.0); HEMOGLOBIN. 14.4 g/dL (12.0-16.0); MEAN CORPUSCULAR HEMOGLOBIN 26.1 pg (28.0-32.0); MEAN CORPUSCULAR VOLUME 79.6 fL (81.0-99.0); PLATELET 123 x1000/uL (130-400); RED BLOOD CELL COUNT 5.51 mill/uL (4.2-5.4)
[2018-02-08 05:58] LABS: PHOSPHORUS 4.3 mg/dL (2.5-4.9)
[2018-02-08] MEDS: BLOOD SUGAR DIAGNOSTIC STRIP TEST SCH ×4 (06:13→18:00)
[2018-02-08] MEDS: INSULIN LISPRO 100 UNITS/ML SUBCUT SCH ×5 (06:18→23:59)
[2018-02-08 06:38] LABS: PLATELET ESTIMATE SLIGHTLY DECREASED
[2018-02-08] MEDS: DEXT 5%/0.45% NACL 1000ML 1,000 ML IV SCH (08:39)
[2018-02-08] MEDS: EZETIMIBE 10MG TABLET PO SCH (09:00)
[2018-02-08] MEDS: NEBIVOLOL HCL 5 MG TABLET PO SCH (09:00)
[2018-02-08] MEDS: PANTOPRAZOLE SODIUM 40 MG/VIAL IV SCH (09:00)
[2018-02-08] MEDS: GABAPENTIN 300MG CAPSULE PO SCH ×2 (12:44→20:58)
[2018-02-08] MEDS: PREDNISONE 5MG TABLET PO SCH ×2 (12:45→20:53)
[2018-02-08] MEDS: ATORVASTATIN CALCIUM 40MG TABLET PO SCH (20:53)
[2018-02-08] MEDS: INSULIN GLARGINE UD 100 UNITS/ML SYR SUBCUT SCH (21:10)
[2018-02-08] MEDS ORDERED: SODIUM CHLORIDE 0.9% 500 ML IV PRN (23:00)
[2018-02-09] VITALS (79 sets, daily range): BP systolic 64–163; BP diastolic 29–112
[2018-02-09] MEDS: PIPERACILLIN/TAZ 2.25G PREMIX 50 ML IV SCH ×4 (01:23→20:15)
[2018-02-09] MEDS: HYDROCORTISONE SOD SUCCINATE IV SCH (05:50)
[2018-02-09] MEDS: SODIUM CHLORIDE 0.9% IV SCH (05:50)
[2018-02-09] MEDS: INSULIN LISPRO 100 UNITS/ML SUBCUT SCH ×3 (05:50→17:59)
[2018-02-09] MEDS: BLOOD SUGAR DIAGNOSTIC STRIP TEST SCH ×4 (05:51→17:18)
[2018-02-09] MEDS: DEXT 5%/0.45% NACL 1000ML 1,000 ML IV SCH (05:57)
[2018-02-09 06:09] LABS: HEMATOCRIT. 38.3 % (36.0-48.0); HEMOGLOBIN. 12.6 g/dL (12.0-16.0); MEAN CORPUSCULAR HEMOGLOBIN 26.3 pg (28.0-32.0); MEAN CORPUSCULAR VOLUME 79.7 fL (81.0-99.0); MEAN PLATELET VOLUME 9.7 fl (7.4-10.4); PLATELET 77 x1000/uL (130-400); RED BLOOD CELL COUNT 4.81 mill/uL (4.2-5.4)
[2018-02-09 07:19] LABS: PHOSPHORUS 4.6 mg/dL (2.5-4.9)
[2018-02-09] MEDS: NEBIVOLOL HCL 5 MG TABLET PO SCH (08:44)
[2018-02-09] MEDS: PREDNISONE 5MG TABLET PO SCH ×3 (08:56→17:58)
[2018-02-09] MEDS: PANTOPRAZOLE SODIUM 40 MG/VIAL IV SCH (08:56)
[2018-02-09] MEDS: EZETIMIBE 10MG TABLET PO SCH (08:56)
[2018-02-09] MEDS: GABAPENTIN 300MG CAPSULE PO SCH ×2 (08:56→20:15)
[2018-02-09] MEDS: ONDANSETRON HCL 4MG/2ML INJ IV PRN (11:12)
[2018-02-09 11:21] LABS: PLATELET ESTIMATE DECREASED
[2018-02-09] MEDS ORDERED: PREDNISONE 5MG TABLET PO NR (11:30)
[2018-02-09] MEDS ORDERED: NOREPINEPHRINE 16 MG in DEXT 5% WATER 234 ML IV PRN (14:44)
[2018-02-09] MEDS: ATORVASTATIN CALCIUM 40MG TABLET PO SCH (20:15)
[2018-02-09] MEDS: INSULIN GLARGINE UD 100 UNITS/ML SYR SUBCUT SCH (21:14)
[2018-02-09] MEDS: ZOLPIDEM TARTRATE 5MG TABLET PO PRN (22:29)
[2018-02-10] VITALS (53 sets, daily range): BP systolic 76–199; BP diastolic 35–134
[2018-02-10] MEDS: PIPERACILLIN/TAZ 2.25G PREMIX 50 ML IV SCH ×3 (01:09→17:36)
[2018-02-10] MEDS: INSULIN LISPRO 100 UNITS/ML SUBCUT SCH ×5 (01:09→20:56)
[2018-02-10] MEDS: DEXT 5%/0.45% NACL 1000ML 1,000 ML IV SCH ×2 (01:30→16:12)
[2018-02-10] MEDS: BLOOD SUGAR DIAGNOSTIC STRIP TEST SCH ×5 (05:43→20:58)
[2018-02-10 06:20] LABS: BASOPHILS % 0.3 % (0.0-2.0); EOSINOPHILS % 0.1 % (0.0-5.0); HEMATOCRIT. 36.9 % (36.0-48.0); HEMOGLOBIN. 12.3 g/dL (12.0-16.0); MEAN CORPUSCULAR HEMOGLOBIN 26.3 pg (28.0-32.0); MEAN CORPUSCULAR VOLUME 79.1 fL (81.0-99.0); MEAN PLATELET VOLUME 9.5 fl (7.4-10.4); MONOCYTES % 7.1 % (2.0-8.0); NEUTROPHILS % 83.5 % (40.0-76.0); PLATELET 55 x1000/uL (130-400); RED BLOOD CELL COUNT 4.67 mill/uL (4.2-5.4); RED CELL DISTRIBUTION WIDTH 14.5 % (11.6-14.6)
[2018-02-10] MEDS ORDERED: POTASSIUM CHLORIDE 20MEQ TABLET SR PO NR (08:00)
[2018-02-10] MEDS: NEBIVOLOL HCL 5 MG TABLET PO SCH (08:44)
[2018-02-10] MEDS: PREDNISONE 5MG TABLET PO SCH ×2 (08:57→17:33)
[2018-02-10] MEDS: PANTOPRAZOLE SODIUM 40 MG/VIAL IV SCH (08:57)
[2018-02-10] MEDS: GABAPENTIN 300MG CAPSULE PO SCH ×2 (08:58→20:58)
[2018-02-10] MEDS: EZETIMIBE 10MG TABLET PO SCH (08:58)
[2018-02-10] MEDS ORDERED: ENOXAPARIN 30MG/0.3ML SYR SUBCUT SCH (09:00)
[2018-02-10] MEDS ORDERED: KCL 20MEQ/100ML PREMIX 100 ML IV NR (09:00)
[2018-02-10] MEDS ORDERED: VANCOMYCIN 1 G PREMIX 200 ML IV SCH (11:30)
[2018-02-10] MEDS ORDERED: LOPERAMIDE 2 MG/10 ML UDC PO PRN (13:00)
[2018-02-10] MEDS: INSULIN GLARGINE UD 100 UNITS/ML SYR SUBCUT SCH (20:56)
[2018-02-10] MEDS: ATORVASTATIN CALCIUM 40MG TABLET PO SCH (20:57)
[2018-02-10] MEDS: ZOLPIDEM TARTRATE 5MG TABLET PO PRN (22:49)
[2018-02-11] VITALS (20 sets, daily range): BP systolic 90–158; BP diastolic 38–119
[2018-02-11] MEDS: PIPERACILLIN/TAZ 2.25G PREMIX 50 ML IV SCH ×3 (02:51→17:31)
[2018-02-11] MEDS: DEXT 5%/0.45% NACL 1000ML 1,000 ML IV SCH ×2 (06:39→20:38)
[2018-02-11] MEDS: NEBIVOLOL HCL 5 MG TABLET PO SCH (07:33)
[2018-02-11] MEDS: BLOOD SUGAR DIAGNOSTIC STRIP TEST SCH ×4 (07:38→20:38)
[2018-02-11] MEDS: INSULIN LISPRO 100 UNITS/ML SUBCUT SCH ×4 (07:45→21:19)
[2018-02-11 07:48] LABS: BASOPHILS % 0.1 % (0.0-2.0); EOSINOPHILS % 0.5 % (0.0-5.0); HEMATOCRIT. 36.6 % (36.0-48.0); HEMOGLOBIN. 12.1 g/dL (12.0-16.0); LYMPHOCYTES % 12.1 % (20.0-50.0); MEAN CORPUSCULAR HEMOGLOBIN 26.2 pg (28.0-32.0); MEAN CORPUSCULAR VOLUME 79.7 fL (81.0-99.0); MEAN PLATELET VOLUME 10.3 fl (7.4-10.4); MONOCYTES % 12.1 % (2.0-8.0); NEUTROPHILS % 75.2 % (40.0-76.0); PLATELET 64 x1000/uL (130-400); RED CELL DISTRIBUTION WIDTH 14.8 % (11.6-14.6)
[2018-02-11] MEDS: GABAPENTIN 300MG CAPSULE PO SCH ×2 (08:15→20:37)
[2018-02-11] MEDS: PANTOPRAZOLE SODIUM 40 MG/VIAL IV SCH (08:15)
[2018-02-11] MEDS: PREDNISONE 5MG TABLET PO SCH ×2 (08:15→17:31)
[2018-02-11] MEDS ORDERED: DILTIAZEM HCL 5MG/ML 5ML VIAL IV SCH (09:45)
[2018-02-11] MEDS: DILTIAZEM HCL 125 MG in DEXT 5% WATER 100 ML IV SCH (10:22)
[2018-02-11] MEDS: EZETIMIBE 10MG TABLET PO SCH (10:46)
[2018-02-11] MEDS: ATORVASTATIN CALCIUM 40MG TABLET PO SCH (20:37)
[2018-02-11] MEDS: ZOLPIDEM TARTRATE 5MG TABLET PO PRN (20:38)
[2018-02-11] MEDS: INSULIN GLARGINE UD 100 UNITS/ML SYR SUBCUT SCH (21:19)
[2018-02-12] VITALS (14 sets, daily range): BP systolic 97–139; BP diastolic 45–73
[2018-02-12] MEDS: PIPERACILLIN/TAZ 2.25G PREMIX 50 ML IV SCH ×3 (01:30→17:19)
[2018-02-12] MEDS: INSULIN LISPRO 100 UNITS/ML SUBCUT SCH ×4 (07:30→23:21)
[2018-02-12] MEDS: BLOOD SUGAR DIAGNOSTIC STRIP TEST SCH ×4 (07:50→21:00)
[2018-02-12 07:59] LABS: BASOPHILS % 0.1 % (0.0-2.0); EOSINOPHILS % 1.3 % (0.0-5.0); HEMATOCRIT. 35.8 % (36.0-48.0); HEMOGLOBIN. 11.7 g/dL (12.0-16.0); LYMPHOCYTES % 16.7 % (20.0-50.0); MEAN CORPUSCULAR HEMOGLOBIN 26.1 pg (28.0-32.0); MEAN CORPUSCULAR VOLUME 80.1 fL (81.0-99.0); MEAN PLATELET VOLUME 9.5 fl (7.4-10.4); MONOCYTES % 14.8 % (2.0-8.0); NEUTROPHILS % 67.1 % (40.0-76.0); PLATELET 92 x1000/uL (130-400); RED BLOOD CELL COUNT 4.47 mill/uL (4.2-5.4); RED CELL DISTRIBUTION WIDTH 14.9 % (11.6-14.6)
[2018-02-12] MEDS: PREDNISONE 5MG TABLET PO SCH ×2 (08:53→17:19)
[2018-02-12] MEDS: NEBIVOLOL HCL 5 MG TABLET PO SCH (08:54)
[2018-02-12] MEDS: GABAPENTIN 300MG CAPSULE PO SCH ×2 (08:54→23:23)
[2018-02-12] MEDS: EZETIMIBE 10MG TABLET PO SCH (08:54)
[2018-02-12] MEDS: PANTOPRAZOLE SODIUM 40 MG/VIAL IV SCH (08:55)
[2018-02-12] MEDS: DILTIAZEM HCL 125 MG in DEXT 5% WATER 100 ML IV SCH (11:33)
[2018-02-12] MEDS ORDERED: VANCOMYCIN 1 G PREMIX 200 ML IV SCH (12:00)
[2018-02-12] MEDS ORDERED: INSULIN LISPRO 100 UNITS/ML SUBCUT NR (22:57)
[2018-02-12] MEDS: ATORVASTATIN CALCIUM 40MG TABLET PO SCH (23:22)
[2018-02-12] MEDS: INSULIN GLARGINE UD 100 UNITS/ML SYR SUBCUT SCH (23:22)
[2018-02-13] VITALS (12 sets, daily range): BP systolic 121–163; BP diastolic 49–90
[2018-02-13 07:05] LABS: HEMATOCRIT. 36.8 % (36.0-48.0); MEAN CORPUSCULAR HEMOGLOBIN 26.2 pg (28.0-32.0); MEAN CORPUSCULAR VOLUME 80.2 fL (81.0-99.0); MEAN PLATELET VOLUME 9.5 fl (7.4-10.4); PLATELET 162 x1000/uL (130-400); RED BLOOD CELL COUNT 4.58 mill/uL (4.2-5.4); RED CELL DISTRIBUTION WIDTH 14.7 % (11.6-14.6)
[2018-02-13] MEDS: BLOOD SUGAR DIAGNOSTIC STRIP TEST SCH ×4 (07:30→21:00)
[2018-02-13] MEDS: GABAPENTIN 300MG CAPSULE PO SCH ×2 (09:04→21:09)
[2018-02-13] MEDS: PANTOPRAZOLE SODIUM 40 MG/VIAL IV SCH (09:05)
[2018-02-13] MEDS: NEBIVOLOL HCL 5 MG TABLET PO SCH (09:05)
[2018-02-13] MEDS: INSULIN LISPRO 100 UNITS/ML SUBCUT SCH ×4 (09:06→22:26)
[2018-02-13] MEDS: EZETIMIBE 10MG TABLET PO SCH (09:11)
[2018-02-13] MEDS: PREDNISONE 5MG TABLET PO SCH ×2 (09:11→17:52)
[2018-02-13] MEDS: INSULIN GLARGINE UD 100 UNITS/ML SYR SUBCUT SCH ×2 (09:12→22:27)
[2018-02-13] MEDS: DILTIAZEM HCL 125 MG in DEXT 5% WATER 100 ML IV SCH (11:08)
[2018-02-13] MEDS: DILTIAZEM HCL 60MG TABLET PO SCH ×2 (13:54→22:18)
[2018-02-13 14:18] LABS: PLATELET ESTIMATE NORMAL
[2018-02-13] MEDS: ATORVASTATIN CALCIUM 40MG TABLET PO SCH (21:08)
[2018-02-14] VITALS (12 sets, daily range): BP systolic 122–167; BP diastolic 53–71
[2018-02-14] MEDS: DILTIAZEM HCL 60MG TABLET PO SCH ×2 (05:59→14:04)
[2018-02-14] MEDS: BLOOD SUGAR DIAGNOSTIC STRIP TEST SCH ×3 (07:30→17:52)
[2018-02-14 07:38] LABS: BASOPHILS % 0.3 % (0.0-2.0); EOSINOPHILS % 0.7 % (0.0-5.0); HEMATOCRIT. 35.1 % (36.0-48.0); HEMOGLOBIN. 11.4 g/dL (12.0-16.0); LYMPHOCYTES % 17.2 % (20.0-50.0); MEAN CORPUSCULAR HEMOGLOBIN 27.2 pg (28.0-32.0); MEAN CORPUSCULAR VOLUME 83.2 fL (81.0-99.0); MEAN PLATELET VOLUME 8.9 fl (7.4-10.4); MONOCYTES % 11.9 % (2.0-8.0); NEUTROPHILS % 69.9 % (40.0-76.0); PLATELET 226 x1000/uL (130-400); RED BLOOD CELL COUNT 4.21 mill/uL (4.2-5.4); RED CELL DISTRIBUTION WIDTH 14.9 % (11.6-14.6)
[2018-02-14] MEDS: INSULIN LISPRO 100 UNITS/ML SUBCUT SCH ×3 (08:53→18:17)
[2018-02-14] MEDS: GABAPENTIN 300MG CAPSULE PO SCH (09:49)
[2018-02-14] MEDS: EZETIMIBE 10MG TABLET PO SCH (09:49)
[2018-02-14] MEDS: PREDNISONE 5MG TABLET PO SCH ×2 (09:49→18:08)
[2018-02-14] MEDS: NEBIVOLOL HCL 5 MG TABLET PO SCH (09:50)
[2018-02-14] MEDS: INSULIN GLARGINE UD 100 UNITS/ML SYR SUBCUT SCH (10:47)
[2018-02-14] MEDS ORDERED: HYDRALAZINE HCL 25MG TABLET PO SCH (14:00)
[2018-02-14 14:58] LABS: PHOSPHORUS 3.2 mg/dL (2.5-4.9)
== END 2018-02-14 20:37 | DRG 871 ==
LOC: ER 20:43 → 7WST 02-06 00:46 → EDBEDREQDT 02-06 00:59 → EDBEDREQ 02-06 00:59 → EDBEDREQTM 02-06 00:59 → ENRESERV 02-06 02:36 → 7WST 02-06 06:41 → CVICU 02-06 08:25 → 5EST 02-10 15:30
PROVIDERS: ADMIT Family Medicine Adult Medicine; ATTEND Family Medicine Adult Medicine
PROC: 02HV33Z Insertion of Infusion Device into Superior Vena Cava, Percutaneous Approach (ICD-10-PCS; principal; 2018-02-06)
PROC: B548ZZA Ultrasonography of Superior Vena Cava, Guidance (ICD-10-PCS; 2018-02-06)
DX: A41.9 Sepsis, unspecified organism (principal); R65.21 Severe sepsis with septic shock; K72.00 Acute and subacute hepatic failure without coma; J18.9 Pneumonia, unspecified organism; N17.0 Acute kidney failure with tubular necrosis; E44.0 Moderate protein-calorie malnutrition; E87.2 Acidosis; G93.40 Encephalopathy, unspecified; I67.82 Cerebral ischemia; E27.49 Other adrenocortical insufficiency; I48.92 Unspecified atrial flutter; I48.0 Paroxysmal atrial fibrillation; E78.5 Hyperlipidemia, unspecified; E11.42 Type 2 diabetes mellitus with diabetic polyneuropathy; G31.9 Degenerative disease of nervous system, unspecified; E11.65 Type 2 diabetes mellitus with hyperglycemia; D50.9 Iron deficiency anemia, unspecified; D72.823 Leukemoid reaction; D72.819 Decreased white blood cell count, unspecified; D69.6 Thrombocytopenia, unspecified; E87.6 Hypokalemia; E11.22 Type 2 diabetes mellitus with diabetic chronic kidney disease; E87.5 Hyperkalemia; R10.9 Unspecified abdominal pain; I27.20 Pulmonary hypertension, unspecified; M13.0 Polyarthritis, unspecified; K52.9 Noninfective gastroenteritis and colitis, unspecified; L98.499 Non-pressure chronic ulcer of skin of other sites with unspecified severity; I12.9 Hypertensive chronic kidney disease with stage 1 through stage 4 chronic kidney disease, or unspecified chronic kidney disease; T38.0X5A Adverse effect of glucocorticoids and synthetic analogues, initial encounter; S60.521A Blister (nonthermal) of right hand, initial encounter; X58.XXXA Exposure to other specified factors, initial encounter; N18.9 Chronic kidney disease, unspecified; Z90.49 Acquired absence of other specified parts of digestive tract; Z86.011 Personal history of benign neoplasm of the brain; Z85.3 Personal history of malignant neoplasm of breast; Z92.3 Personal history of irradiation; Z92.21 Personal history of antineoplastic chemotherapy; Z86.718 Personal history of other venous thrombosis and embolism; Y92.89 Other specified places as the place of occurrence of the external cause; Z79.52 Long term (current) use of systemic steroids; Z82.49 Family history of ischemic heart disease and other diseases of the circulatory system; Z68.33 Body mass index [BMI] 33.0-33.9, adult; Z88.1 Allergy status to other antibiotic agents; Z88.8 Allergy status to other drugs, medicaments and biological substances; Z79.899 Other long term (current) drug therapy; Z98.51 Tubal ligation status; Y93.89 Activity, other specified; Y99.8 Other external cause status
CPT/HCPCS: 36415; 36569; 36600; 71045; 74176; 76700; 76937; 80048; 80076; 80202; 82140; 82150; 82248; 82375; 82533; 82550; 82575; 82805; 82962; 83605; 83735; 84100; 84134; 84145; 84439; 84443; 84481; 84484; 86705; 86706; 86709; 86803; 87340; 87493; 90686; 90732; 92610; 93005; 93306; 93970; 96365; 96375; 97116; 97162; 97530; 99291; A6261; C1725; C1893; C9113; J1200; J1720; J1815; J1885; J2270; J2370; J2405; J2543; J3370; J3475; J3480; J3490; J7030; J7060; J7070; J7512; A4315

== ENCOUNTER 2018-02-14 20:39 | Inpatient (IN) | payer MEDICARE, MEDICAID ==
[~2018-02-14] VITALS: Ht 154.9 cm; Wt 80.3 kg
[2018-02-14 20:39] VITALS: BP 151/63
[2018-02-14 22:00] VITALS: BP 151/63
[2018-02-14] MEDS ORDERED: ZOLPIDEM TARTRATE 5MG TABLET PO PRN (22:15)
[2018-02-14] MEDS ORDERED: ONDANSETRON HCL 4MG/2ML INJ IV PRN (22:15)
[2018-02-14] MEDS ORDERED: LOPERAMIDE 2 MG/10 ML UDC PO PRN (22:15)
[2018-02-14] MEDS ORDERED: DEXTROSE 50% WATER 50ML SYRINGE IV PRN (22:15)
[2018-02-14] MEDS: GABAPENTIN 300MG CAPSULE PO SCH (23:43)
[2018-02-14] MEDS: ATORVASTATIN CALCIUM 40MG TABLET PO SCH (23:43)
[2018-02-14] MEDS: HYDRALAZINE HCL 25MG TABLET PO SCH (23:43)
[2018-02-14] MEDS: DILTIAZEM HCL 60MG TABLET PO SCH (23:44)
[2018-02-15] MEDS: INSULIN GLARGINE UD 100 UNITS/ML SYR SUBCUT SCH ×3 (00:41→22:10)
[2018-02-15] MEDS: INSULIN LISPRO 100 UNITS/ML SUBCUT SCH ×5 (00:42→22:10)
[2018-02-15] MEDS: DILTIAZEM HCL 60MG TABLET PO SCH ×3 (06:21→22:03)
[2018-02-15] MEDS: HYDRALAZINE HCL 25MG TABLET PO SCH ×3 (06:21→22:03)
[2018-02-15] MEDS: BLOOD SUGAR DIAGNOSTIC STRIP TEST SCH ×4 (06:38→21:00)
[2018-02-15 08:05] VITALS: BP 145/52
[2018-02-15] MEDS: EZETIMIBE 10MG TABLET PO SCH (09:01)
[2018-02-15] MEDS: GABAPENTIN 300MG CAPSULE PO SCH ×2 (09:01→21:00)
[2018-02-15] MEDS: PREDNISONE 5MG TABLET PO SCH ×2 (09:01→17:11)
[2018-02-15] MEDS: NEBIVOLOL HCL 5 MG TABLET PO SCH (09:02)
[2018-02-15] MEDS: ENOXAPARIN 30MG/0.3ML SYR SUBCUT SCH (09:04)
[2018-02-15 16:02] LABS: HEMATOCRIT 35.3 % (36.0-48.0); HEMOGLOBIN 11.1 g/dL (12.0-16.0); MEAN CORPUSCULAR HEMOGLOBIN 25.4 pg (28.0-32.0); MEAN CORPUSCULAR VOLUME 80.9 fL (81.0-99.0); PLATELET 302 x1000/uL (130-400); RED BLOOD CELL COUNT 4.37 mill/uL (4.2-5.4); RED CELL DISTRIBUTION WIDTH 15.2 % (11.6-14.6)
[2018-02-15 16:10] LABS: CHLORIDE 105 mEq/L (98-107)
[2018-02-15 20:00] VITALS: BP 161/63
[2018-02-15 21:00] VITALS: BP_SYST 153; BP_SYST 158; BP_SYST 160; BP_DIAS 61; BP_DIAS 67; BP_DIAS 69
[2018-02-15] MEDS: ATORVASTATIN CALCIUM 40MG TABLET PO SCH (22:02)
[2018-02-16] MEDS: DILTIAZEM HCL 60MG TABLET PO SCH ×3 (05:22→21:13)
[2018-02-16] MEDS: HYDRALAZINE HCL 25MG TABLET PO SCH (05:23)
[2018-02-16] MEDS: BLOOD SUGAR DIAGNOSTIC STRIP TEST SCH ×4 (05:57→21:12)
[2018-02-16] MEDS: INSULIN LISPRO 100 UNITS/ML SUBCUT SCH ×4 (05:57→21:34)
[2018-02-16 08:00] VITALS: BP 160/56
[2018-02-16] MEDS: GABAPENTIN 300MG CAPSULE PO SCH ×3 (09:01→21:12)
[2018-02-16] MEDS: PREDNISONE 5MG TABLET PO SCH ×2 (09:02→16:56)
[2018-02-16] MEDS: NEBIVOLOL HCL 5 MG TABLET PO SCH (09:02)
[2018-02-16] MEDS: EZETIMIBE 10MG TABLET PO SCH (09:02)
[2018-02-16] MEDS: ENOXAPARIN 30MG/0.3ML SYR SUBCUT SCH (09:03)
[2018-02-16] MEDS: INSULIN GLARGINE UD 100 UNITS/ML SYR SUBCUT SCH ×2 (11:56→21:34)
[2018-02-16 20:00] VITALS: BP 152/58
[2018-02-16] MEDS: ATORVASTATIN CALCIUM 40MG TABLET PO SCH (21:11)
[2018-02-16] MEDS: HYDRALAZINE HCL 50MG TABLET PO SCH (21:13)
[2018-02-17] MEDS: HYDRALAZINE HCL 50MG TABLET PO SCH ×3 (05:43→21:09)
[2018-02-17] MEDS: DILTIAZEM HCL 60MG TABLET PO SCH ×3 (05:43→21:08)
[2018-02-17] MEDS: INSULIN LISPRO 100 UNITS/ML SUBCUT SCH ×4 (05:48→21:19)
[2018-02-17] MEDS: BLOOD SUGAR DIAGNOSTIC STRIP TEST SCH ×4 (05:48→21:09)
[2018-02-17 06:41] VITALS: BP 155/55
[2018-02-17 07:54] LABS: CLARITY URINE CLEAR (CLEAR); COLOR URINE YELLOW (YELLOW); KETONES URINE NEGATIVE (NEGATIVE); LEUKOCYTE ESTERASE URINE TRACE (NEGATIVE); NITRITE URINE NEGATIVE (NEGATIVE); OCCULT BLOOD URINE NEGATIVE (NEGATIVE); PROTEIN URINE NEGATIVE (NEGATIVE); SPECIFIC GRAVITY URINE 1.011 (1.005-1.030); UROBILINOGEN URINE 0.2 E.U./dL (0.2-1.0)
[2018-02-17 08:00] VITALS: BP 157/50
[2018-02-17 08:01] LABS: BASOPHILS % 0.5 % (0.0-2.0); EOSINOPHILS % 0.3 % (0.0-5.0); HEMATOCRIT. 33.3 % (36.0-48.0); HEMOGLOBIN. 10.8 g/dL (12.0-16.0); MEAN CORPUSCULAR HEMOGLOBIN 25.9 pg (28.0-32.0); MEAN CORPUSCULAR VOLUME 80.1 fL (81.0-99.0); MEAN PLATELET VOLUME 8.5 fl (7.4-10.4); MONOCYTES % 10.6 % (2.0-8.0); NEUTROPHILS % 71.6 % (40.0-76.0); PLATELET 342 x1000/uL (130-400); RED BLOOD CELL COUNT 4.16 mill/uL (4.2-5.4); RED CELL DISTRIBUTION WIDTH 14.9 % (11.6-14.6)
[2018-02-17] MEDS: PREDNISONE 5MG TABLET PO SCH ×2 (08:16→17:01)
[2018-02-17] MEDS: GABAPENTIN 300MG CAPSULE PO SCH ×2 (08:16→21:00)
[2018-02-17] MEDS: ENOXAPARIN 30MG/0.3ML SYR SUBCUT SCH (08:16)
[2018-02-17] MEDS: EZETIMIBE 10MG TABLET PO SCH (08:16)
[2018-02-17] MEDS: NEBIVOLOL HCL 5 MG TABLET PO SCH (08:17)
[2018-02-17 09:09] LABS: CHLORIDE 107 mEq/L (98-107)
[2018-02-17 09:14] LABS: PHOSPHORUS 3.3 mg/dL (2.5-4.9)
[2018-02-17 09:16] LABS: TOTAL IRON BINDING CAPACITY 283 ug/dL (250-450)
[2018-02-17 09:17] LABS: CREATINE KINASE 64 IU/L (26-192)
[2018-02-17] MEDS: INSULIN GLARGINE UD 100 UNITS/ML SYR SUBCUT SCH ×2 (10:39→21:20)
[2018-02-17] MEDS ORDERED: POTASSIUM CHLORIDE 20MEQ/PACKET PO NR (10:45)
[2018-02-17] MEDS: MUPIROCIN 2% OINT 22GM NS SCH ×2 (11:27→21:08)
[2018-02-17] MEDS ORDERED: FAMOTIDINE 20MG TABLET PO NR (11:30)
[2018-02-17] MEDS ORDERED: MAGNESIUM 2 G PREMIX 50 ML IV NR (12:00)
[2018-02-17 12:14] LABS: FOLIC ACID (FOLATE) SERUM 16.4 ng/mL (>5.38)
[2018-02-17 20:00] VITALS: BP 177/58
[2018-02-17] MEDS: ATORVASTATIN CALCIUM 40MG TABLET PO SCH (21:08)
[2018-02-17] MEDS ORDERED: FAMOTIDINE 20MG TABLET PO SCH (22:30)
[2018-02-17] MEDS ORDERED: HYDROCODONE/ACETAMINOPHEN 5/325MG TABLET PO PRN (22:30)
[2018-02-17] MEDS: FAMOTIDINE 20MG TABLET PO SCH (23:07)
[2018-02-18 02:45] VITALS: BP 155/57
[2018-02-18] MEDS: HYDRALAZINE HCL 50MG TABLET PO SCH ×3 (05:53→21:31)
[2018-02-18] MEDS: BLOOD SUGAR DIAGNOSTIC STRIP TEST SCH ×4 (05:54→21:31)
[2018-02-18] MEDS: DILTIAZEM HCL 60MG TABLET PO SCH ×3 (05:54→21:30)
[2018-02-18] MEDS: INSULIN LISPRO 100 UNITS/ML SUBCUT SCH ×4 (05:54→22:23)
[2018-02-18 07:52] LABS: BASOPHILS % 0.8 % (0.0-2.0); EOSINOPHILS % 0.3 % (0.0-5.0); HEMATOCRIT. 34.7 % (36.0-48.0); HEMOGLOBIN. 11.2 g/dL (12.0-16.0); LYMPHOCYTES % 18.2 % (20.0-50.0); MEAN CORPUSCULAR HEMOGLOBIN 25.6 pg (28.0-32.0); MEAN CORPUSCULAR VOLUME 79.8 fL (81.0-99.0); MEAN PLATELET VOLUME 8.4 fl (7.4-10.4); MONOCYTES % 9.8 % (2.0-8.0); NEUTROPHILS % 70.9 % (40.0-76.0); PLATELET 360 x1000/uL (130-400); RED BLOOD CELL COUNT 4.36 mill/uL (4.2-5.4); RED CELL DISTRIBUTION WIDTH 14.8 % (11.6-14.6)
[2018-02-18 08:19] VITALS: BP 172/59
[2018-02-18] MEDS: GABAPENTIN 300MG CAPSULE PO SCH ×2 (09:24→21:00)
[2018-02-18] MEDS: ENOXAPARIN 30MG/0.3ML SYR SUBCUT SCH (09:25)
[2018-02-18] MEDS: MUPIROCIN 2% OINT 22GM NS SCH ×2 (09:25→21:31)
[2018-02-18] MEDS: EZETIMIBE 10MG TABLET PO SCH (09:26)
[2018-02-18] MEDS: PREDNISONE 5MG TABLET PO SCH ×2 (09:26→17:23)
[2018-02-18] MEDS: NEBIVOLOL HCL 5 MG TABLET PO SCH (09:28)
[2018-02-18] MEDS: INSULIN GLARGINE UD 100 UNITS/ML SYR SUBCUT SCH (10:22)
[2018-02-18] MEDS ORDERED: POTASSIUM CHLORIDE 20MEQ TABLET SR PO SCH (10:30)
[2018-02-18] MEDS ORDERED: POTASSIUM CHLORIDE 20MEQ TABLET SR PO NR (17:00)
[2018-02-18] MEDS: MAGNESIUM OXIDE 400MG TABLET PO SCH (17:23)
[2018-02-18 20:00] VITALS: BP 149/57
[2018-02-18] MEDS: ATORVASTATIN CALCIUM 40MG TABLET PO SCH (21:30)
[2018-02-18] MEDS: FAMOTIDINE 20MG TABLET PO SCH (21:30)
[2018-02-18] MEDS ORDERED: INSULIN GLARGINE UD 100 UNITS/ML SYR SUBCUT SCH (22:00)
[2018-02-19] MEDS: INSULIN LISPRO 100 UNITS/ML SUBCUT SCH ×4 (05:55→22:40)
[2018-02-19] MEDS: HYDRALAZINE HCL 50MG TABLET PO SCH ×3 (05:55→21:48)
[2018-02-19] MEDS: BLOOD SUGAR DIAGNOSTIC STRIP TEST SCH ×4 (05:55→21:50)
[2018-02-19] MEDS: DILTIAZEM HCL 60MG TABLET PO SCH ×3 (05:55→21:48)
[2018-02-19 08:00] VITALS: BP 156/60
[2018-02-19] MEDS: ENOXAPARIN 30MG/0.3ML SYR SUBCUT SCH (08:50)
[2018-02-19] MEDS: EZETIMIBE 10MG TABLET PO SCH (08:51)
[2018-02-19] MEDS: MUPIROCIN 2% OINT 22GM NS SCH ×2 (08:51→22:42)
[2018-02-19] MEDS: NEBIVOLOL HCL 5 MG TABLET PO SCH (08:52)
[2018-02-19] MEDS: GABAPENTIN 300MG CAPSULE PO SCH ×2 (08:52→21:48)
[2018-02-19] MEDS: MAGNESIUM OXIDE 400MG TABLET PO SCH ×2 (08:52→16:47)
[2018-02-19] MEDS: PREDNISONE 5MG TABLET PO SCH ×2 (08:52→16:47)
[2018-02-19] MEDS: INSULIN GLARGINE UD 100 UNITS/ML SYR SUBCUT SCH (11:09)
[2018-02-19] MEDS: LEVOFLOXACIN 250MG TABLET PO SCH (11:15)
[2018-02-19] MEDS: PANTOPRAZOLE 40MG DR TABLET PO SCH (13:34)
[2018-02-19 20:00] VITALS: BP 145/54
[2018-02-19] MEDS: ATORVASTATIN CALCIUM 40MG TABLET PO SCH (21:46)
[2018-02-19] MEDS ORDERED: INSULIN GLARGINE UD 100 UNITS/ML SYR SUBCUT SCH (22:00)
[2018-02-20] MEDS: BLOOD SUGAR DIAGNOSTIC STRIP TEST SCH ×4 (06:31→21:24)
[2018-02-20] MEDS: HYDRALAZINE HCL 50MG TABLET PO SCH (06:35)
[2018-02-20] MEDS: DILTIAZEM HCL 60MG TABLET PO SCH ×3 (06:35→21:11)
[2018-02-20] MEDS: PANTOPRAZOLE 40MG DR TABLET PO SCH (06:35)
[2018-02-20] MEDS: INSULIN LISPRO 100 UNITS/ML SUBCUT SCH ×4 (06:35→21:44)
[2018-02-20 08:09] VITALS: BP 127/45
[2018-02-20] MEDS: NEBIVOLOL HCL 5 MG TABLET PO SCH (08:30)
[2018-02-20] MEDS: GABAPENTIN 300MG CAPSULE PO SCH ×2 (08:33→21:12)
[2018-02-20] MEDS: MAGNESIUM OXIDE 400MG TABLET PO SCH ×2 (08:33→16:11)
[2018-02-20] MEDS: PREDNISONE 5MG TABLET PO SCH ×2 (08:33→16:11)
[2018-02-20] MEDS: EZETIMIBE 10MG TABLET PO SCH (08:33)
[2018-02-20] MEDS: ENOXAPARIN 30MG/0.3ML SYR SUBCUT SCH (08:35)
[2018-02-20] MEDS: MUPIROCIN 2% OINT 22GM NS SCH ×2 (08:37→21:11)
[2018-02-20] MEDS: LEVOFLOXACIN 250MG TABLET PO SCH (11:26)
[2018-02-20] MEDS: INSULIN GLARGINE UD 100 UNITS/ML SYR SUBCUT SCH ×2 (11:39→21:44)
[2018-02-20 12:57] LABS: BASOPHILS % 0.8 % (0.0-2.0); EOSINOPHILS % 0.4 % (0.0-5.0); HEMATOCRIT. 33.2 % (36.0-48.0); HEMOGLOBIN. 10.7 g/dL (12.0-16.0); LYMPHOCYTES % 9.1 % (20.0-50.0); MEAN CORPUSCULAR VOLUME 80.5 fL (81.0-99.0); MEAN PLATELET VOLUME 8.5 fl (7.4-10.4); MONOCYTES % 6.4 % (2.0-8.0); NEUTROPHILS % 83.3 % (40.0-76.0); PLATELET 299 x1000/uL (130-400); RED BLOOD CELL COUNT 4.13 mill/uL (4.2-5.4); RED CELL DISTRIBUTION WIDTH 15.3 % (11.6-14.6)
[2018-02-20 13:11] LABS: CHLORIDE 105 mEq/L (98-107)
[2018-02-20 13:24] LABS: PHOSPHORUS 3.3 mg/dL (2.5-4.9)
[2018-02-20 13:26] LABS: T4 FREE 1.21 ng/dL (0.76-1.46)
[2018-02-20] MEDS: HYDRALAZINE HCL 100MG TABLET PO SCH ×2 (13:35→21:12)
[2018-02-20 14:21] LABS: 25-HYDROXY VITAMIN D3 30 ng/mL (.)
[2018-02-20] MEDS: NYSTATIN POWDER 15GM TOP SCH (16:12)
[2018-02-20] MEDS: GLIMEPIRIDE 2MG TABLET PO SCH (17:30)
[2018-02-20 20:00] VITALS: BP_SYST 111; BP_SYST 159; BP_SYST 161; BP_DIAS 60; BP_DIAS 63; BP_DIAS 68
[2018-02-20] MEDS: ATORVASTATIN CALCIUM 40MG TABLET PO SCH (21:41)
[2018-02-20] MEDS ORDERED: INSULIN GLARGINE UD 100 UNITS/ML SYR SUBCUT SCH (22:00)
[2018-02-21] MEDS: DILTIAZEM HCL 60MG TABLET PO SCH ×3 (05:38→21:13)
[2018-02-21] MEDS: HYDRALAZINE HCL 100MG TABLET PO SCH ×3 (05:38→21:13)
[2018-02-21] MEDS: PANTOPRAZOLE 40MG DR TABLET PO SCH (06:31)
[2018-02-21] MEDS: BLOOD SUGAR DIAGNOSTIC STRIP TEST SCH ×4 (06:31→21:13)
[2018-02-21] MEDS: INSULIN LISPRO 100 UNITS/ML SUBCUT SCH ×4 (06:31→21:23)
[2018-02-21 08:00] VITALS: BP 131/54
[2018-02-21 09:00] VITALS: BP_SYST 121; BP_SYST 143; BP_DIAS 50; BP_DIAS 55
[2018-02-21] MEDS: PREDNISONE 5MG TABLET PO SCH ×2 (09:12→17:12)
[2018-02-21] MEDS: GABAPENTIN 300MG CAPSULE PO SCH ×2 (09:12→21:12)
[2018-02-21] MEDS: NEBIVOLOL HCL 5 MG TABLET PO SCH (09:12)
[2018-02-21] MEDS: GLIMEPIRIDE 2MG TABLET PO SCH ×2 (09:12→17:12)
[2018-02-21] MEDS: MAGNESIUM OXIDE 400MG TABLET PO SCH ×2 (09:12→17:12)
[2018-02-21] MEDS: EZETIMIBE 10MG TABLET PO SCH (09:12)
[2018-02-21] MEDS: ENOXAPARIN 30MG/0.3ML SYR SUBCUT SCH (09:13)
[2018-02-21] MEDS: MUPIROCIN 2% OINT 22GM NS SCH ×2 (09:13→21:12)
[2018-02-21] MEDS: NYSTATIN POWDER 15GM TOP SCH ×3 (09:13→17:13)
[2018-02-21] MEDS: INSULIN GLARGINE UD 100 UNITS/ML SYR SUBCUT SCH ×2 (10:48→21:23)
[2018-02-21] MEDS: LEVOFLOXACIN 250MG TABLET PO SCH (11:21)
[2018-02-21] MEDS ORDERED: ERGOCALCIFEROL 50000UNITS CAPSULE PO SCH (17:00)
[2018-02-21 20:00] VITALS: BP 154/50
[2018-02-21] MEDS: ATORVASTATIN CALCIUM 40MG TABLET PO SCH (21:12)
[2018-02-21] MEDS: IPRATROPIUM/ALBUTEROL 0.5-3(2.5)MG/3ML NEB HHN PRN (22:24)
[2018-02-22] MEDS: IPRATROPIUM/ALBUTEROL 0.5-3(2.5)MG/3ML NEB HHN PRN (05:27)
[2018-02-22] MEDS: DILTIAZEM HCL 60MG TABLET PO SCH ×3 (05:36→22:00)
[2018-02-22] MEDS: HYDRALAZINE HCL 100MG TABLET PO SCH ×3 (05:36→22:00)
[2018-02-22] MEDS: INSULIN LISPRO 100 UNITS/ML SUBCUT SCH ×4 (06:35→21:00)
[2018-02-22] MEDS: BLOOD SUGAR DIAGNOSTIC STRIP TEST SCH ×4 (06:35→21:00)
[2018-02-22] MEDS: PANTOPRAZOLE 40MG DR TABLET PO SCH (06:35)
[2018-02-22 06:38] LABS: CHLORIDE 107 mEq/L (98-107)
[2018-02-22 06:44] LABS: PHOSPHORUS 3.9 mg/dL (2.5-4.9)
[2018-02-22 06:49] LABS: BASOPHILS % 0.8 % (0.0-2.0); EOSINOPHILS % 0.7 % (0.0-5.0); HEMATOCRIT. 32.6 % (36.0-48.0); HEMOGLOBIN. 10.6 g/dL (12.0-16.0); LYMPHOCYTES % 22.7 % (20.0-50.0); MEAN CORPUSCULAR HEMOGLOBIN 26.4 pg (28.0-32.0); MEAN CORPUSCULAR VOLUME 80.9 fL (81.0-99.0); MEAN PLATELET VOLUME 8.6 fl (7.4-10.4); MONOCYTES % 9.4 % (2.0-8.0); NEUTROPHILS % 66.4 % (40.0-76.0); PLATELET 298 x1000/uL (130-400); RED BLOOD CELL COUNT 4.03 mill/uL (4.2-5.4); RED CELL DISTRIBUTION WIDTH 15.6 % (11.6-14.6)
[2018-02-22 08:20] VITALS: BP 146/42
[2018-02-22] MEDS: MAGNESIUM OXIDE 400MG TABLET PO SCH ×3 (08:57→17:30)
[2018-02-22] MEDS: GABAPENTIN 300MG CAPSULE PO SCH ×2 (08:57→21:00)
[2018-02-22] MEDS: EZETIMIBE 10MG TABLET PO SCH (08:57)
[2018-02-22] MEDS: NYSTATIN POWDER 15GM TOP SCH ×3 (08:58→17:54)
[2018-02-22] MEDS: GLIMEPIRIDE 2MG TABLET PO SCH ×2 (08:58→17:30)
[2018-02-22] MEDS: NEBIVOLOL HCL 5 MG TABLET PO SCH (08:58)
[2018-02-22] MEDS: ENOXAPARIN 30MG/0.3ML SYR SUBCUT SCH (08:59)
[2018-02-22] MEDS: MUPIROCIN 2% OINT 22GM NS SCH (08:59)
[2018-02-22] MEDS: PREDNISONE 5MG TABLET PO SCH ×2 (09:03→17:30)
[2018-02-22] MEDS: LEVOFLOXACIN 250MG TABLET PO SCH (11:15)
[2018-02-22] MEDS: INSULIN GLARGINE UD 100 UNITS/ML SYR SUBCUT SCH ×2 (11:29→22:00)
[2018-02-22] MEDS ORDERED: HYDROCODONE/ACETAMINOPHEN 5/325MG TABLET PO PRN (16:30)
[2018-02-22 20:00] VITALS: BP 135/52
[2018-02-22] MEDS: ATORVASTATIN CALCIUM 40MG TABLET PO SCH (21:00)
[2018-02-23] MEDS: HYDRALAZINE HCL 100MG TABLET PO SCH ×3 (05:46→22:24)
[2018-02-23] MEDS: DILTIAZEM HCL 60MG TABLET PO SCH ×3 (05:46→22:23)
[2018-02-23] MEDS: PANTOPRAZOLE 40MG DR TABLET PO SCH (05:46)
[2018-02-23] MEDS: INSULIN LISPRO 100 UNITS/ML SUBCUT SCH ×4 (05:52→21:36)
[2018-02-23] MEDS: BLOOD SUGAR DIAGNOSTIC STRIP TEST SCH ×4 (05:52→21:27)
[2018-02-23 07:16] LABS: BASOPHILS % 0.9 % (0.0-2.0); EOSINOPHILS % 1.2 % (0.0-5.0); HEMATOCRIT. 31.8 % (36.0-48.0); HEMOGLOBIN. 10.4 g/dL (12.0-16.0); LYMPHOCYTES % 18.4 % (20.0-50.0); MEAN CORPUSCULAR HEMOGLOBIN 26.4 pg (28.0-32.0); MEAN CORPUSCULAR VOLUME 80.6 fL (81.0-99.0); MEAN PLATELET VOLUME 8.6 fl (7.4-10.4); MONOCYTES % 9.3 % (2.0-8.0); NEUTROPHILS % 70.2 % (40.0-76.0); PLATELET 271 x1000/uL (130-400); RED BLOOD CELL COUNT 3.94 mill/uL (4.2-5.4); RED CELL DISTRIBUTION WIDTH 15.4 % (11.6-14.6)
[2018-02-23 08:00] VITALS: BP 129/46
[2018-02-23] MEDS: SODIUM CHLORIDE 0.45% 1,000 ML IV SCH (08:24)
[2018-02-23] MEDS: PREDNISONE 5MG TABLET PO SCH ×2 (08:24→17:26)
[2018-02-23] MEDS: EZETIMIBE 10MG TABLET PO SCH (08:24)
[2018-02-23] MEDS: GABAPENTIN 300MG CAPSULE PO SCH ×2 (08:24→21:16)
[2018-02-23] MEDS: NYSTATIN POWDER 15GM TOP SCH ×3 (08:25→17:39)
[2018-02-23] MEDS: ENOXAPARIN 30MG/0.3ML SYR SUBCUT SCH (08:25)
[2018-02-23] MEDS: GLIMEPIRIDE 2MG TABLET PO SCH ×2 (08:25→17:26)
[2018-02-23] MEDS: NEBIVOLOL HCL 5 MG TABLET PO SCH (08:25)
[2018-02-23] MEDS: MAGNESIUM OXIDE 400MG TABLET PO SCH ×3 (08:25→17:26)
[2018-02-23] MEDS: LEVOFLOXACIN 250MG TABLET PO SCH (10:33)
[2018-02-23] MEDS: INSULIN GLARGINE UD 100 UNITS/ML SYR SUBCUT SCH ×2 (10:36→23:17)
[2018-02-23] MEDS ORDERED: BACITRACIN 15GM TUBE TOP SCH (16:30)
[2018-02-23 20:00] VITALS: BP 149/48
[2018-02-23] MEDS: ATORVASTATIN CALCIUM 40MG TABLET PO SCH (21:15)
[2018-02-23] MEDS: IPRATROPIUM/ALBUTEROL 0.5-3(2.5)MG/3ML NEB HHN PRN (21:45)
[2018-02-24] MEDS: ACETAMINOPHEN 325MG TABLET PO PRN (04:45)
[2018-02-24] MEDS: HYDRALAZINE HCL 100MG TABLET PO SCH ×3 (05:45→21:25)
[2018-02-24] MEDS: DILTIAZEM HCL 60MG TABLET PO SCH ×3 (05:46→21:26)
[2018-02-24] MEDS: BLOOD SUGAR DIAGNOSTIC STRIP TEST SCH ×4 (05:46→21:19)
[2018-02-24 07:54] VITALS: BP 147/52
[2018-02-24] MEDS: NYSTATIN POWDER 15GM TOP SCH ×3 (08:25→17:46)
[2018-02-24] MEDS: BACITRACIN 15GM TUBE TOP SCH (08:25)
[2018-02-24] MEDS: GABAPENTIN 300MG CAPSULE PO SCH ×2 (08:26→21:19)
[2018-02-24] MEDS: EZETIMIBE 10MG TABLET PO SCH (08:27)
[2018-02-24] MEDS: PREDNISONE 5MG TABLET PO SCH ×2 (08:27→17:40)
[2018-02-24] MEDS: GLIMEPIRIDE 2MG TABLET PO SCH ×2 (08:27→17:39)
[2018-02-24] MEDS: MAGNESIUM OXIDE 400MG TABLET PO SCH ×3 (08:27→17:39)
[2018-02-24] MEDS: NEBIVOLOL HCL 5 MG TABLET PO SCH (08:27)
[2018-02-24] MEDS: PANTOPRAZOLE 40MG DR TABLET PO SCH (08:27)
[2018-02-24] MEDS: ENOXAPARIN 30MG/0.3ML SYR SUBCUT SCH (08:28)
[2018-02-24] MEDS: SODIUM CHLORIDE 0.45% 1,000 ML IV SCH ×2 (08:34→17:05)
[2018-02-24] MEDS: INSULIN LISPRO 100 UNITS/ML SUBCUT SCH ×4 (08:34→21:26)
[2018-02-24] MEDS: INSULIN GLARGINE UD 100 UNITS/ML SYR SUBCUT SCH ×2 (10:04→21:27)
[2018-02-24 11:00] LABS: BASOPHILS % 0.7 % (0.0-2.0); EOSINOPHILS % 1.1 % (0.0-5.0); HEMATOCRIT. 38.1 % (36.0-48.0); HEMOGLOBIN. 12.3 g/dL (12.0-16.0); LYMPHOCYTES % 17.6 % (20.0-50.0); MEAN CORPUSCULAR HEMOGLOBIN 26.9 pg (28.0-32.0); MEAN CORPUSCULAR VOLUME 83.2 fL (81.0-99.0); MEAN PLATELET VOLUME 8.9 fl (7.4-10.4); MONOCYTES % 7.4 % (2.0-8.0); NEUTROPHILS % 73.2 % (40.0-76.0); PLATELET 246 x1000/uL (130-400); RED BLOOD CELL COUNT 4.58 mill/uL (4.2-5.4)
[2018-02-24 11:30] LABS: PHOSPHORUS 3.5 mg/dL (2.5-4.9)
[2018-02-24 20:00] VITALS: BP 149/47
[2018-02-24] MEDS: ATORVASTATIN CALCIUM 40MG TABLET PO SCH (21:19)
[2018-02-25] MEDS: BLOOD SUGAR DIAGNOSTIC STRIP TEST SCH ×4 (06:08→21:00)
[2018-02-25] MEDS: INSULIN LISPRO 100 UNITS/ML SUBCUT SCH ×4 (06:14→21:34)
[2018-02-25] MEDS: DILTIAZEM HCL 60MG TABLET PO SCH ×3 (06:14→21:30)
[2018-02-25] MEDS: HYDRALAZINE HCL 100MG TABLET PO SCH ×3 (06:14→21:30)
[2018-02-25 08:00] VITALS: BP 139/46
[2018-02-25 08:15] LABS: BASOPHILS % 1.1 % (0.0-2.0); EOSINOPHILS % 1.3 % (0.0-5.0); HEMATOCRIT. 32.6 % (36.0-48.0); HEMOGLOBIN. 10.7 g/dL (12.0-16.0); LYMPHOCYTES % 22.6 % (20.0-50.0); MEAN CORPUSCULAR HEMOGLOBIN 26.8 pg (28.0-32.0); MEAN CORPUSCULAR VOLUME 81.2 fL (81.0-99.0); MEAN PLATELET VOLUME 8.9 fl (7.4-10.4); MONOCYTES % 8.6 % (2.0-8.0); NEUTROPHILS % 66.4 % (40.0-76.0); PLATELET 228 x1000/uL (130-400); RED BLOOD CELL COUNT 4.01 mill/uL (4.2-5.4); RED CELL DISTRIBUTION WIDTH 15.5 % (11.6-14.6)
[2018-02-25] MEDS: NYSTATIN POWDER 15GM TOP SCH ×3 (08:44→17:16)
[2018-02-25] MEDS: BACITRACIN 15GM TUBE TOP SCH (08:44)
[2018-02-25] MEDS: EZETIMIBE 10MG TABLET PO SCH (08:45)
[2018-02-25] MEDS: MAGNESIUM OXIDE 400MG TABLET PO SCH ×3 (08:45→17:16)
[2018-02-25] MEDS: NEBIVOLOL HCL 5 MG TABLET PO SCH (08:45)
[2018-02-25] MEDS: GABAPENTIN 300MG CAPSULE PO SCH ×2 (08:45→21:29)
[2018-02-25] MEDS: PREDNISONE 5MG TABLET PO SCH ×2 (08:45→17:16)
[2018-02-25] MEDS: GLIMEPIRIDE 2MG TABLET PO SCH ×2 (08:45→17:16)
[2018-02-25] MEDS: FAMOTIDINE 20MG TABLET PO SCH (08:45)
[2018-02-25] MEDS: ENOXAPARIN 30MG/0.3ML SYR SUBCUT SCH (08:46)
[2018-02-25] MEDS: SODIUM CHLORIDE 0.45% 1,000 ML IV SCH (08:46)
[2018-02-25] MEDS: IPRATROPIUM/ALBUTEROL 0.5-3(2.5)MG/3ML NEB HHN PRN (09:55)
[2018-02-25] MEDS: INSULIN GLARGINE UD 100 UNITS/ML SYR SUBCUT SCH ×2 (10:27→21:35)
[2018-02-25 20:00] VITALS: BP 162/56
[2018-02-25 20:30] VITALS: BP_SYST 155; BP_SYST 161; BP_DIAS 59
[2018-02-25] MEDS: ATORVASTATIN CALCIUM 40MG TABLET PO SCH (21:29)
[2018-02-26] MEDS: BLOOD SUGAR DIAGNOSTIC STRIP TEST SCH ×4 (05:53→20:58)
[2018-02-26] MEDS: INSULIN LISPRO 100 UNITS/ML SUBCUT SCH ×4 (05:53→21:06)
[2018-02-26] MEDS: HYDRALAZINE HCL 100MG TABLET PO SCH ×3 (05:54→20:17)
[2018-02-26] MEDS: DILTIAZEM HCL 60MG TABLET PO SCH ×3 (05:54→20:17)
[2018-02-26 08:00] VITALS: BP 145/49
[2018-02-26 08:48] LABS: EOSINOPHILS % 1.1 % (0.0-5.0); HEMATOCRIT. 35.1 % (36.0-48.0); HEMOGLOBIN. 11.2 g/dL (12.0-16.0); LYMPHOCYTES % 24.6 % (20.0-50.0); MEAN CORPUSCULAR HEMOGLOBIN 26.1 pg (28.0-32.0); MEAN CORPUSCULAR VOLUME 81.9 fL (81.0-99.0); MEAN PLATELET VOLUME 8.5 fl (7.4-10.4); MONOCYTES % 8.4 % (2.0-8.0); NEUTROPHILS % 64.9 % (40.0-76.0); PLATELET 231 x1000/uL (130-400); RED BLOOD CELL COUNT 4.29 mill/uL (4.2-5.4); RED CELL DISTRIBUTION WIDTH 15.6 % (11.6-14.6)
[2018-02-26] MEDS: EZETIMIBE 10MG TABLET PO SCH (09:10)
[2018-02-26] MEDS: PREDNISONE 5MG TABLET PO SCH ×2 (09:10→17:22)
[2018-02-26] MEDS: MAGNESIUM OXIDE 400MG TABLET PO SCH ×3 (09:10→17:22)
[2018-02-26] MEDS: GLIMEPIRIDE 2MG TABLET PO SCH ×2 (09:10→17:21)
[2018-02-26] MEDS: NEBIVOLOL HCL 5 MG TABLET PO SCH (09:11)
[2018-02-26] MEDS: FAMOTIDINE 20MG TABLET PO SCH (09:11)
[2018-02-26] MEDS: ENOXAPARIN 30MG/0.3ML SYR SUBCUT SCH (09:11)
[2018-02-26] MEDS: GABAPENTIN 300MG CAPSULE PO SCH ×2 (09:13→20:17)
[2018-02-26] MEDS: BACITRACIN 15GM TUBE TOP SCH (09:13)
[2018-02-26] MEDS: NYSTATIN POWDER 15GM TOP SCH ×3 (09:13→17:31)
[2018-02-26] MEDS: ZINC OXIDE 20% OINT 30GM TOP SCH ×3 (09:15→17:31)
[2018-02-26] MEDS: INSULIN GLARGINE UD 100 UNITS/ML SYR SUBCUT SCH ×2 (10:36→21:06)
[2018-02-26] MEDS: ACETAMINOPHEN 325MG TABLET PO PRN (14:12)
[2018-02-26 20:00] VITALS: BP 177/72
[2018-02-26] MEDS: ATORVASTATIN CALCIUM 40MG TABLET PO SCH (20:17)
[2018-02-26] MEDS ORDERED: CLONIDINE 0.1MG TABLET PO PRN (21:45)
[2018-02-26 23:00] VITALS: BP 117/33
[2018-02-27] MEDS: DILTIAZEM HCL 60MG TABLET PO SCH ×2 (05:41→14:19)
[2018-02-27] MEDS: HYDRALAZINE HCL 100MG TABLET PO SCH ×2 (05:41→14:20)
[2018-02-27] MEDS: BLOOD SUGAR DIAGNOSTIC STRIP TEST SCH ×2 (06:21→11:15)
[2018-02-27] MEDS: INSULIN LISPRO 100 UNITS/ML SUBCUT SCH ×2 (06:21→12:28)
[2018-02-27 08:11] VITALS: BP 129/48
[2018-02-27] MEDS: MAGNESIUM OXIDE 400MG TABLET PO SCH ×2 (08:41→14:21)
[2018-02-27] MEDS: PREDNISONE 5MG TABLET PO SCH (08:41)
[2018-02-27] MEDS: EZETIMIBE 10MG TABLET PO SCH (08:41)
[2018-02-27] MEDS: GLIMEPIRIDE 2MG TABLET PO SCH (08:41)
[2018-02-27] MEDS: GABAPENTIN 300MG CAPSULE PO SCH (08:41)
[2018-02-27] MEDS: FAMOTIDINE 20MG TABLET PO SCH (08:41)
[2018-02-27] MEDS: NYSTATIN POWDER 15GM TOP SCH ×2 (08:42→14:20)
[2018-02-27] MEDS: BACITRACIN 15GM TUBE TOP SCH (08:42)
[2018-02-27] MEDS: ENOXAPARIN 30MG/0.3ML SYR SUBCUT SCH (08:42)
[2018-02-27] MEDS: NEBIVOLOL HCL 5 MG TABLET PO SCH (09:00)
[2018-02-27] MEDS: INSULIN GLARGINE UD 100 UNITS/ML SYR SUBCUT SCH (12:01)
[2018-02-27 13:24] VITALS: BP 145/49
== END 2018-02-27 16:52 | disposition home health service (06) | DRG 40 ==
PROVIDERS: ADMIT Physical Medicine & Rehabilitation Spinal Cord Injury Medicine; ATTEND Physical Medicine & Rehabilitation Spinal Cord Injury Medicine
PROC: 0JBQ0ZZ Excision of Right Foot Subcutaneous Tissue and Fascia, Open Approach (ICD-10-PCS; principal; 2018-02-23)
DX: G93.49 Other encephalopathy (principal); A41.9 Sepsis, unspecified organism; R65.21 Severe sepsis with septic shock; K72.00 Acute and subacute hepatic failure without coma; N17.0 Acute kidney failure with tubular necrosis; E87.2 Acidosis; I48.92 Unspecified atrial flutter; E27.40 Unspecified adrenocortical insufficiency; E44.0 Moderate protein-calorie malnutrition; N39.0 Urinary tract infection, site not specified; D50.9 Iron deficiency anemia, unspecified; D69.6 Thrombocytopenia, unspecified; E11.42 Type 2 diabetes mellitus with diabetic polyneuropathy; E11.65 Type 2 diabetes mellitus with hyperglycemia; E78.5 Hyperlipidemia, unspecified; E87.6 Hypokalemia; R26.9 Unspecified abnormalities of gait and mobility; I48.0 Paroxysmal atrial fibrillation; T38.0X5A Adverse effect of glucocorticoids and synthetic analogues, initial encounter; Z79.52 Long term (current) use of systemic steroids; Z82.49 Family history of ischemic heart disease and other diseases of the circulatory system; Z92.3 Personal history of irradiation; Z92.21 Personal history of antineoplastic chemotherapy; Z90.49 Acquired absence of other specified parts of digestive tract; Z86.718 Personal history of other venous thrombosis and embolism; Z86.011 Personal history of benign neoplasm of the brain; Z85.3 Personal history of malignant neoplasm of breast; D72.823 Leukemoid reaction; B96.1 Klebsiella pneumoniae [K. pneumoniae] as the cause of diseases classified elsewhere; B96.5 Pseudomonas (aeruginosa) (mallei) (pseudomallei) as the cause of diseases classified elsewhere; E11.22 Type 2 diabetes mellitus with diabetic chronic kidney disease; I12.9 Hypertensive chronic kidney disease with stage 1 through stage 4 chronic kidney disease, or unspecified chronic kidney disease; E11.621 Type 2 diabetes mellitus with foot ulcer; I25.10 Atherosclerotic heart disease of native coronary artery without angina pectoris; K21.9 Gastro-esophageal reflux disease without esophagitis; K74.60 Unspecified cirrhosis of liver; L60.3 Nail dystrophy; N18.9 Chronic kidney disease, unspecified; L97.519 Non-pressure chronic ulcer of other part of right foot with unspecified severity; L84 Corns and callosities; Z22.322 Carrier or suspected carrier of Methicillin resistant Staphylococcus aureus; Z68.33 Body mass index [BMI] 33.0-33.9, adult; M19.90 Unspecified osteoarthritis, unspecified site
CPT/HCPCS: 36415; 80048; 82306; 82550; 82607; 82728; 82746; 82962; 83540; 83550; 83735; 84100; 84134; 84439; 84443; 84481; 85027; 87077; 87186; 92523; 92610; 93005; 93970; 97110; 97112; 97116; 97150; 97162; 97166; 97530; 97535; A6261; C1893; G0515; J1650; J1815; J3475; J7040; J7512; J7620

== ENCOUNTER → 2018-05-11 | Outpatient (CLI) | payer MEDICARE, MEDICAID ==
[~2018-05-11] MED LIST changes: -DOCU-150 PO; -HYDR-4134 PO; -LOV40 SQ
== END | disposition home or self-care (01) ==
LOC: CT 09:41
PROVIDERS: ATTEND Internal Medicine Critical Care Medicine
DX: I31.3 Pericardial effusion (noninflammatory) (principal); J43.9 Emphysema, unspecified; I70.0 Atherosclerosis of aorta
CPT/HCPCS: 71250

== ENCOUNTER 2019-07-27 17:27 | Inpatient (IN) | payer MEDICARE, MEDICAID ==
[~2019-07-27] VITALS: Ht 157.5 cm; Wt 72.6 kg
[~2019-07-27 17:27] MED LIST changes: -ACET-2178 PO; +TOPUD PO
[2019-07-27] MEDS ORDERED: AZITHROMYCIN 500 MG in DEXT 5% WATER 250 ML IV ONE (17:45)
[2019-07-27] MEDS ORDERED: CEFTRIAXONE 1 G PREMIX 50 ML IV ONE (17:45)
[2019-07-27 19:19] LABS: BASOPHILS % 0.6 % (0.0-2.0); EOSINOPHILS % 0.3 % (0.0-5.0); HEMATOCRIT. 44.2 % (36.0-48.0); HEMOGLOBIN. 14.2 g/dL (12.0-16.0); LYMPHOCYTES % 16.3 % (20.0-50.0); MEAN CORPUSCULAR HEMOGLOBIN 25.5 pg (28.0-32.0); MEAN CORPUSCULAR VOLUME 79.4 fL (81.0-99.0); MEAN PLATELET VOLUME 8.5 fl (7.4-10.4); MONOCYTES % 6.2 % (2.0-8.0); NEUTROPHILS % 76.6 % (40.0-76.0); PLATELET 233 x1000/uL (130-400); RED BLOOD CELL COUNT 5.56 mill/uL (4.2-5.4); RED CELL DISTRIBUTION WIDTH 17.4 % (11.6-14.6)
[2019-07-27 20:09] LABS: CHLORIDE 111 mEq/L (98-107)
[2019-07-27] MEDS ORDERED: POTASSIUM CHLORIDE 20MEQ TABLET SR PO ONE (21:45)
[2019-07-27] MEDS ORDERED: KCL 20MEQ/100ML PREMIX 100 ML IV ONE (21:45)
[2019-07-28] MEDS ORDERED: BENZONATATE 100MG CAPSULE PO PRN (09:45)
[2019-07-28] MEDS ORDERED: DEXTROSE 50% WATER 50ML SYRINGE IV PRN (09:45)
[2019-07-28 10:00] VITALS: BP 148/76
[2019-07-28] MEDS ORDERED: POTASSIUM CHLORIDE 20MEQ TABLET SR PO NR (11:00)
[2019-07-28] MEDS ORDERED: AMLO10TA80 PO (11:08)
[2019-07-28] MEDS ORDERED: INSU100I28 SQ (11:08)
[2019-07-28] MEDS ORDERED: OMEP40CA12 PO ×2 (11:08→16:56)
[2019-07-28] MEDS: BLOOD SUGAR DIAGNOSTIC STRIP TEST SCH ×3 (11:40→21:10)
[2019-07-28] MEDS: INSULIN LISPRO 100 UNITS/ML SUBCUT SCH ×3 (12:10→21:00)
[2019-07-28] MEDS: ENOXAPARIN 40MG/0.4ML SYR SUBCUT SCH (12:39)
[2019-07-28] MEDS ORDERED: ACETAMINOPHEN 325MG TABLET PO PRN (13:15)
[2019-07-28 16:00] VITALS: BP 154/75
[2019-07-28] MEDS ORDERED: DILTIAZEM HCL 180MG CAPSULE CD 24HR PO SCH (16:15)
[2019-07-28] MEDS ORDERED: BISACODYL 5MG TABLET PO PRN (16:15)
[2019-07-28] MEDS ORDERED: ACETAMINOPHEN 325MG TABLET PO SCH (16:15)
[2019-07-28 20:00] VITALS: BP 160/72
[2019-07-28] MEDS ORDERED: CEFTRIAXONE 1 G PREMIX 50 ML IV SCH (20:00)
[2019-07-28] MEDS: AZITHROMYCIN 500 MG TABLET PO SCH (20:50)
[2019-07-28] MEDS: LOSARTAN POTASSIUM 50 MG TABLET PO SCH (21:32)
[2019-07-28] MEDS: PREDNISONE 5MG TABLET PO SCH (21:32)
[2019-07-28] MEDS: AMLODIPINE 5MG TABLET PO SCH (21:32)
[2019-07-28] MEDS ORDERED: INSULIN GLARGINE UD 100 UNITS/ML SYR SUBCUT SCH (22:00)
[2019-07-28] MEDS: INSULIN GLARGINE UD 100 UNITS/ML SYR SUBCUT SCH (22:17)
[2019-07-28] MEDS: HYDROCODONE/ACETAMINOPHEN 5/325MG TABLET PO PRN (22:18)
[2019-07-28] MEDS: CEFTRIAXONE 1 G PREMIX 50 ML IV SCH (22:18)
[2019-07-28] MEDS ORDERED: PRED2.5T4 PO (23:45)
[2019-07-28] MEDS ORDERED: LOSA100T32 PO (23:45)
[2019-07-28 23:54] LABS: CLARITY URINE CLEAR (CLEAR); COLOR URINE YELLOW (YELLOW); KETONES URINE NEGATIVE (NEGATIVE); LEUKOCYTE ESTERASE URINE 1+ (NEGATIVE); NITRITE URINE NEGATIVE (NEGATIVE); OCCULT BLOOD URINE NEGATIVE (NEGATIVE); PH URINE 5.5 (4.5-8.0); PROTEIN URINE 1+ (NEGATIVE); SPECIFIC GRAVITY URINE 1.015 (1.005-1.030); UROBILINOGEN URINE 0.2 E.U./dL (0.2-1.0)
[2019-07-29] VITALS (7 sets, daily range): BP systolic 117–157; BP diastolic 54–80
[2019-07-29 05:46] LABS: BASOPHILS % 0.3 % (0.0-2.0); EOSINOPHILS % 0.7 % (0.0-5.0); HEMATOCRIT. 44.6 % (36.0-48.0); HEMOGLOBIN. 14.5 g/dL (12.0-16.0); LYMPHOCYTES % 18.7 % (20.0-50.0); MEAN CORPUSCULAR HEMOGLOBIN 25.7 pg (28.0-32.0); MEAN CORPUSCULAR VOLUME 78.8 fL (81.0-99.0); MEAN PLATELET VOLUME 8.2 fl (7.4-10.4); MONOCYTES % 8.7 % (2.0-8.0); NEUTROPHILS % 71.6 % (40.0-76.0); PLATELET 221 x1000/uL (130-400); RED BLOOD CELL COUNT 5.66 mill/uL (4.2-5.4); RED CELL DISTRIBUTION WIDTH 17.2 % (11.6-14.6)
[2019-07-29 05:55] LABS: CHLORIDE 111 mEq/L (98-107)
[2019-07-29] MEDS: INSULIN LISPRO 100 UNITS/ML SUBCUT SCH ×4 (06:51→21:00)
[2019-07-29] MEDS: BLOOD SUGAR DIAGNOSTIC STRIP TEST SCH ×4 (06:51→21:45)
[2019-07-29] MEDS: OMEPRAZOLE 20MG CAPSULE EXTENDED RELEASE PO SCH (06:51)
[2019-07-29] MEDS ORDERED: PREDNISONE 5MG TABLET PO SCH (09:00)
[2019-07-29] MEDS ORDERED: AMLODIPINE 10MG TABLET PO SCH (09:00)
[2019-07-29] MEDS ORDERED: PREDNISOLONE 15 MG/5 ML ORAL SYRINGE PO SCH (09:00)
[2019-07-29] MEDS: AMLODIPINE 5MG TABLET PO SCH ×2 (10:03→21:44)
[2019-07-29] MEDS: LOSARTAN POTASSIUM 50 MG TABLET PO SCH ×2 (10:04→17:34)
[2019-07-29] MEDS: PREDNISONE 5MG TABLET PO SCH ×2 (10:04→21:44)
[2019-07-29] MEDS: HYDROCODONE/ACETAMINOPHEN 5/325MG TABLET PO PRN ×2 (10:04→17:35)
[2019-07-29] MEDS: ENOXAPARIN 40MG/0.4ML SYR SUBCUT SCH (10:05)
[2019-07-29] MEDS ORDERED: FUROSEMIDE 20MG/2ML VIAL IVP NR (11:45)
[2019-07-29] MEDS: GABAPENTIN 300MG CAPSULE PO SCH ×2 (16:51→21:44)
[2019-07-29] MEDS: AZITHROMYCIN 500 MG TABLET PO SCH (20:51)
[2019-07-29] MEDS: CEFTRIAXONE 1 G PREMIX 50 ML IV SCH (21:45)
[2019-07-29] MEDS: INSULIN GLARGINE UD 100 UNITS/ML SYR SUBCUT SCH (21:46)
[2019-07-30] VITALS: BP 107/54
[2019-07-30 04:00] VITALS: BP 105/55
[2019-07-30] MEDS: BLOOD SUGAR DIAGNOSTIC STRIP TEST SCH ×4 (06:07→20:29)
[2019-07-30] MEDS: OMEPRAZOLE 20MG CAPSULE EXTENDED RELEASE PO SCH (06:27)
[2019-07-30] MEDS: GABAPENTIN 300MG CAPSULE PO SCH ×3 (06:27→21:48)
[2019-07-30] MEDS: INSULIN LISPRO 100 UNITS/ML SUBCUT SCH ×4 (06:30→21:49)
[2019-07-30 08:00] VITALS: BP 112/57
[2019-07-30] MEDS ORDERED: FUROSEMIDE 20MG/2ML VIAL IVP SCH ×3 (09:00→13:30)
[2019-07-30] MEDS: PREDNISONE 5MG TABLET PO SCH ×2 (10:13→21:48)
[2019-07-30] MEDS: LOSARTAN POTASSIUM 50 MG TABLET PO SCH ×2 (10:13→16:50)
[2019-07-30] MEDS: AMLODIPINE 5MG TABLET PO SCH ×2 (10:13→21:49)
[2019-07-30] MEDS: ENOXAPARIN 40MG/0.4ML SYR SUBCUT SCH (10:14)
[2019-07-30 12:00] VITALS: BP 106/54
[2019-07-30 12:16] LABS: BASOPHILS % 0.5 % (0.0-2.0); EOSINOPHILS % 0.7 % (0.0-5.0); HEMATOCRIT. 43.3 % (36.0-48.0); HEMOGLOBIN. 14.2 g/dL (12.0-16.0); LYMPHOCYTES % 23.1 % (20.0-50.0); MEAN CORPUSCULAR VOLUME 79.4 fL (81.0-99.0); MEAN PLATELET VOLUME 8.6 fl (7.4-10.4); MONOCYTES % 7.8 % (2.0-8.0); NEUTROPHILS % 67.9 % (40.0-76.0); PLATELET 223 x1000/uL (130-400); RED BLOOD CELL COUNT 5.46 mill/uL (4.2-5.4); RED CELL DISTRIBUTION WIDTH 17.3 % (11.6-14.6)
[2019-07-30 12:37] LABS: CHLORIDE 106 mEq/L (98-107)
[2019-07-30 16:00] VITALS: BP 135/72
[2019-07-30] MEDS ORDERED: IPRATROPIUM/ALBUTEROL 0.5-3(2.5)MG/3ML NEB HHN PRN (17:00)
[2019-07-30 20:00] VITALS: BP 141/67
[2019-07-30] MEDS: CEFTRIAXONE 1 G PREMIX 50 ML IV SCH (21:43)
[2019-07-30] MEDS: ATORVASTATIN CALCIUM 40MG TABLET PO SCH (21:48)
[2019-07-30] MEDS: AZITHROMYCIN 500 MG TABLET PO SCH (21:49)
[2019-07-30] MEDS: INSULIN GLARGINE UD 100 UNITS/ML SYR SUBCUT SCH (21:50)
[2019-07-31] VITALS: BP 119/60
[2019-07-31 04:00] VITALS: BP 107/54
[2019-07-31] MEDS: BLOOD SUGAR DIAGNOSTIC STRIP TEST SCH ×4 (05:53→21:00)
[2019-07-31] MEDS: GABAPENTIN 300MG CAPSULE PO SCH ×3 (05:57→22:28)
[2019-07-31] MEDS: INSULIN LISPRO 100 UNITS/ML SUBCUT SCH ×3 (06:01→17:37)
[2019-07-31 06:20] LABS: BASOPHILS % 0.6 % (0.0-2.0); EOSINOPHILS % 0.7 % (0.0-5.0); HEMATOCRIT. 40.6 % (36.0-48.0); HEMOGLOBIN. 13.2 g/dL (12.0-16.0); LYMPHOCYTES % 19.2 % (20.0-50.0); MEAN CORPUSCULAR HEMOGLOBIN 25.9 pg (28.0-32.0); MEAN CORPUSCULAR VOLUME 79.8 fL (81.0-99.0); NEUTROPHILS % 70.5 % (40.0-76.0); RED BLOOD CELL COUNT 5.09 mill/uL (4.2-5.4); RED CELL DISTRIBUTION WIDTH 17.3 % (11.6-14.6)
[2019-07-31 08:00] VITALS: BP 121/59
[2019-07-31 08:10] LABS: CHLORIDE 108 mEq/L (98-107)
[2019-07-31] MEDS: PREDNISONE 5MG TABLET PO SCH ×2 (08:39→22:29)
[2019-07-31] MEDS: LOSARTAN POTASSIUM 50 MG TABLET PO SCH (08:39)
[2019-07-31] MEDS: AMLODIPINE 5MG TABLET PO SCH ×2 (08:39→22:29)
[2019-07-31] MEDS: FAMOTIDINE 20MG TABLET PO SCH (08:39)
[2019-07-31] MEDS: ENOXAPARIN 30MG/0.3ML SYR SUBCUT SCH (08:40)
[2019-07-31] MEDS: FUROSEMIDE 40MG/4ML VIAL IV SCH (08:40)
[2019-07-31] MEDS: HYDROCODONE/ACETAMINOPHEN 5/325MG TABLET PO PRN (10:08)
[2019-07-31 12:02] VITALS: BP 135/60
[2019-07-31] MEDS ORDERED: FURO-151 MT (13:08)
[2019-07-31] MEDS ORDERED: INSU100I28 SQ (13:09)
[2019-07-31 13:42] LABS: MEAN PLATELET VOLUME 8.4 fl (7.4-10.4); PLATELET 169 x1000/uL (130-400)
[2019-07-31] MEDS ORDERED: GABA-531 PO (14:22)
[2019-07-31] MEDS ORDERED: LIP40 PO (14:22)
[2019-07-31 16:00] VITALS: BP 120/54
[2019-07-31] MEDS ORDERED: IPRATROPIUM/ALBUTEROL 0.5-3(2.5)MG/3ML NEB HHN NR (16:45)
[2019-07-31 20:00] VITALS: BP 151/68
[2019-07-31] MEDS ORDERED: INSULIN GLARGINE UD 100 UNITS/ML SYR SUBCUT SCH (22:00)
[2019-07-31] MEDS: ATORVASTATIN CALCIUM 40MG TABLET PO SCH (22:28)
[2019-08-01] VITALS: BP 113/44
[2019-08-01] MEDS: INSULIN LISPRO 100 UNITS/ML SUBCUT SCH ×3 (00:42→12:39)
[2019-08-01 04:00] VITALS: BP 117/66
[2019-08-01] MEDS: GABAPENTIN 300MG CAPSULE PO SCH (06:57)
[2019-08-01] MEDS: HYDROCODONE/ACETAMINOPHEN 5/325MG TABLET PO PRN (06:58)
[2019-08-01] MEDS: BLOOD SUGAR DIAGNOSTIC STRIP TEST SCH ×2 (06:58→12:35)
[2019-08-01 07:20] LABS: BASOPHILS % 0.5 % (0.0-2.0); EOSINOPHILS % 0.6 % (0.0-5.0); LYMPHOCYTES % 15.3 % (20.0-50.0); MEAN CORPUSCULAR HEMOGLOBIN 26.3 pg (28.0-32.0); MEAN CORPUSCULAR VOLUME 78.9 fL (81.0-99.0); MEAN PLATELET VOLUME 8.6 fl (7.4-10.4); MONOCYTES % 8.2 % (2.0-8.0); NEUTROPHILS % 75.4 % (40.0-76.0); PLATELET 204 x1000/uL (130-400); RED BLOOD CELL COUNT 4.94 mill/uL (4.2-5.4); RED CELL DISTRIBUTION WIDTH 16.9 % (11.6-14.6)
[2019-08-01 08:00] VITALS: BP 119/57
[2019-08-01] MEDS: FUROSEMIDE 40MG/4ML VIAL IV SCH (09:31)
[2019-08-01] MEDS: FAMOTIDINE 20MG TABLET PO SCH (09:31)
[2019-08-01] MEDS: PREDNISONE 5MG TABLET PO SCH (09:32)
[2019-08-01] MEDS: AMLODIPINE 5MG TABLET PO SCH (09:32)
[2019-08-01] MEDS: ENOXAPARIN 30MG/0.3ML SYR SUBCUT SCH (09:32)
[2019-08-01 11:47] VITALS: BP 117/65
[2019-08-01] MEDS ORDERED: INSU100I28 SQ (12:11)
[2019-08-01 12:31] VITALS: BP 114/65
== END 2019-08-01 13:45 | disposition home health service (06) | DRG 871 ==
LOC: ER 17:27 → 7EST 18:12 → ENRESERV 07-28 08:52 → 5WST 07-29 00:57
PROVIDERS: ADMIT Family Medicine Adult Medicine; ATTEND Family Medicine Adult Medicine
DX: A41.89 Other specified sepsis (principal); J96.00 Acute respiratory failure, unspecified whether with hypoxia or hypercapnia; I50.33 Acute on chronic diastolic (congestive) heart failure; J12.9 Viral pneumonia, unspecified; E44.1 Mild protein-calorie malnutrition; E27.40 Unspecified adrenocortical insufficiency; N17.9 Acute kidney failure, unspecified; E87.6 Hypokalemia; E87.8 Other disorders of electrolyte and fluid balance, not elsewhere classified; K21.9 Gastro-esophageal reflux disease without esophagitis; I48.0 Paroxysmal atrial fibrillation; I11.0 Hypertensive heart disease with heart failure; E11.65 Type 2 diabetes mellitus with hyperglycemia; I25.10 Atherosclerotic heart disease of native coronary artery without angina pectoris; I27.20 Pulmonary hypertension, unspecified; D72.810 Lymphocytopenia; K82.9 Disease of gallbladder, unspecified; D69.6 Thrombocytopenia, unspecified; D50.9 Iron deficiency anemia, unspecified; R74.0 Nonspecific elevation of levels of transaminase and lactic acid dehydrogenase [LDH]; E11.42 Type 2 diabetes mellitus with diabetic polyneuropathy; E78.5 Hyperlipidemia, unspecified; E55.9 Vitamin D deficiency, unspecified; E11.40 Type 2 diabetes mellitus with diabetic neuropathy, unspecified; J45.909 Unspecified asthma, uncomplicated; Z20.828 Contact with and (suspected) exposure to other viral communicable diseases; R26.9 Unspecified abnormalities of gait and mobility; Z98.51 Tubal ligation status; Z86.011 Personal history of benign neoplasm of the brain; Z85.3 Personal history of malignant neoplasm of breast; Z79.52 Long term (current) use of systemic steroids; Z92.21 Personal history of antineoplastic chemotherapy; Z86.718 Personal history of other venous thrombosis and embolism; Z79.4 Long term (current) use of insulin; Z88.8 Allergy status to other drugs, medicaments and biological substances; Z79.1 Long term (current) use of non-steroidal anti-inflammatories (NSAID); Z79.899 Other long term (current) drug therapy; Z90.49 Acquired absence of other specified parts of digestive tract; Z68.29 Body mass index [BMI] 29.0-29.9, adult; Z82.49 Family history of ischemic heart disease and other diseases of the circulatory system; Z88.1 Allergy status to other antibiotic agents; B34.9 Viral infection, unspecified
CPT/HCPCS: 36415; 71045; 80048; 80053; 81003; 82962; 83036; 83605; 83615; 83735; 83880; 84484; 85025; 87635; 93005; 93306; 94640; 97162; 97166; 99285; J0456; J0696; J1650; J1815; J1940; J3480; J7060; J7512

== ENCOUNTER 2020-11-11 21:35 | Inpatient (IN) | payer MEDICARE, MEDICAID ==
[~2020-11-11] VITALS: Ht 158.8 cm; Wt 74.8 kg
[2020-11-11 21:35] VITALS: BP 153/62
[~2020-11-11 21:35] MED LIST changes: +AMLO10TA80 PO; -DILT180C66 PO; +FURO-151 MT; +GABA-532 PO; +INSU100I28 SQ; +LIP40 PO; -LOPE2TAB26 PO; +LOSA100T32 PO; +OMEP40CA12 PO; +PRED2.5T4 PO
[2020-11-12] MEDS ORDERED: MORPHINE SULFATE 2 MG/ML CPJ (NOT FOR IM USE) IV PRN
[2020-11-12] MEDS ORDERED: IPRATROPIUM/ALBUTEROL 0.5-3(2.5)MG/3ML NEB HHN PRN
[2020-11-12] MEDS ORDERED: ONDANSETRON HCL 4MG/2ML INJ IV PRN
[2020-11-12] MEDS ORDERED: ACETAMINOPHEN 325MG TABLET PO PRN ×2
[2020-11-12] MEDS ORDERED: BISACODYL 5MG TABLET PO PRN
[2020-11-12] MEDS ORDERED: DOCUSATE SODIUM 100MG CAPSULE PO PRN
[2020-11-12] MEDS ORDERED: NALOXONE HCL 1 MG/ML 2ML VIAL IV PRN
[2020-11-12] MEDS ORDERED: GUAIFENESIN 200MG/10ML SUGAR FREE UDC PO PRN
[2020-11-12] MEDS ORDERED: ACETAMINOPHEN 650MG SUPP PR PRN ×2
[2020-11-12] MEDS ORDERED: DEXTROSE 50% WATER 50ML SYRINGE IV PRN
[2020-11-12] MEDS ORDERED: NALOXONE HCL 0.4MG/ML VIAL IV PRN (01:00)
[2020-11-12 04:51] LABS: CLARITY URINE CLEAR (CLEAR); COLOR URINE YELLOW (YELLOW); KETONES URINE NEGATIVE (NEGATIVE); LEUKOCYTE ESTERASE URINE TRACE (NEGATIVE); NITRITE URINE NEGATIVE (NEGATIVE); OCCULT BLOOD URINE 2+ (NEGATIVE); PROTEIN URINE 1+ (NEGATIVE); SPECIFIC GRAVITY URINE 1.019 (1.005-1.030); UROBILINOGEN URINE 0.2 E.U./dL (0.2-1.0)
[2020-11-12] MEDS: BLOOD SUGAR DIAGNOSTIC STRIP TEST SCH ×4 (06:18→21:35)
[2020-11-12] MEDS: GABAPENTIN 300MG CAPSULE PO SCH ×3 (06:19→21:34)
[2020-11-12] MEDS: HYDROCODONE/ACETAMINOPHEN 5/325MG TABLET PO PRN ×5 (06:20→21:35)
[2020-11-12] MEDS: INSULIN LISPRO 100 UNITS/ML SUBCUT SCH ×6 (06:25→17:08)
[2020-11-12] MEDS ORDERED: *PATIENT'S OWN MEDICATION STORAGE XX SCH (07:30)
[2020-11-12 08:30] VITALS: BP 119/63
[2020-11-12] MEDS: POLYETHYLENE GLYCOL 3350 (17GM) 1 DOSE PACK PO SCH (09:00)
[2020-11-12] MEDS: FUROSEMIDE 40MG TABLET PO SCH (09:40)
[2020-11-12] MEDS: DOCUSATE SODIUM 100MG CAPSULE PO SCH ×2 (09:40→17:05)
[2020-11-12] MEDS: AMLODIPINE 5MG TABLET PO SCH (09:40)
[2020-11-12] MEDS: ENOXAPARIN 40MG/0.4ML SYR SUBCUT SCH (09:41)
[2020-11-12] MEDS: PREDNISONE 5MG TABLET PO SCH ×2 (09:41→17:07)
[2020-11-12 11:54] LABS: BASOPHILS % 0.4 % (0.0-2.0); EOSINOPHILS % 0.7 % (0.0-5.0); HEMATOCRIT. 33.4 % (36.0-48.0); HEMOGLOBIN. 10.3 g/dL (12.0-16.0); LYMPHOCYTES % 14.1 % (20.0-50.0); MEAN CORPUSCULAR HEMOGLOBIN 25.1 pg (28.0-32.0); MEAN PLATELET VOLUME 9.2 fl (7.4-10.4); MONOCYTES % 8.9 % (2.0-8.0); NEUTROPHILS % 75.9 % (40.0-76.0); PLATELET 210 x1000/uL (130-400); RED BLOOD CELL COUNT 4.12 mill/uL (4.2-5.4); RED CELL DISTRIBUTION WIDTH 15.7 % (11.6-14.6)
[2020-11-12 12:06] LABS: CHLORIDE 108 mEq/L (98-107)
[2020-11-12] MEDS: ATORVASTATIN CALCIUM 40MG TABLET PO SCH (21:34)
[2020-11-12] MEDS: INSULIN GLARGINE UD 100 UNITS/ML SYR SUBCUT SCH (21:34)
[2020-11-13] MEDS: GABAPENTIN 300MG CAPSULE PO SCH ×3 (06:27→21:35)
[2020-11-13] MEDS: BLOOD SUGAR DIAGNOSTIC STRIP TEST SCH ×4 (06:27→21:35)
[2020-11-13] MEDS: HYDROCODONE/ACETAMINOPHEN 5/325MG TABLET PO PRN ×2 (06:28→13:25)
[2020-11-13 08:00] VITALS: BP 134/56
[2020-11-13 08:12] VITALS: BP 134/56
[2020-11-13] MEDS: FUROSEMIDE 40MG TABLET PO SCH (09:25)
[2020-11-13] MEDS: DOCUSATE SODIUM 100MG CAPSULE PO SCH ×2 (09:25→17:45)
[2020-11-13] MEDS: PREDNISONE 5MG TABLET PO SCH ×2 (09:25→17:45)
[2020-11-13] MEDS: AMLODIPINE 5MG TABLET PO SCH (09:26)
[2020-11-13] MEDS: POLYETHYLENE GLYCOL 3350 (17GM) 1 DOSE PACK PO SCH (09:26)
[2020-11-13] MEDS: INSULIN LISPRO 100 UNITS/ML SUBCUT SCH ×6 (09:38→17:55)
[2020-11-13] MEDS: ENOXAPARIN 40MG/0.4ML SYR SUBCUT SCH (10:40)
[2020-11-13] MEDS: DIPHENHYDRAMINE 50MG/ML VIAL IV PRN ×2 (15:00→22:30)
[2020-11-13 15:58] LABS: CHLORIDE 104 mEq/L (98-107)
[2020-11-13 16:05] LABS: TOTAL IRON BINDING CAPACITY 258 ug/dL (250-450)
[2020-11-13 16:16] LABS: FOLIC ACID (FOLATE) SERUM 13.4 ng/mL (>5.38)
[2020-11-13] MEDS: MAGNESIUM OXIDE 400MG TABLET PO SCH (17:45)
[2020-11-13 19:26] LABS: BASOPHILS % 1.3 % (0.0-2.0); EOSINOPHILS % 1.2 % (0.0-5.0); HEMATOCRIT. 31.7 % (36.0-48.0); HEMOGLOBIN. 10.2 g/dL (12.0-16.0); LYMPHOCYTES % 11.1 % (20.0-50.0); MEAN CORPUSCULAR HEMOGLOBIN 25.5 pg (28.0-32.0); MEAN CORPUSCULAR VOLUME 79.5 fL (81.0-99.0); MEAN PLATELET VOLUME 9.1 fl (7.4-10.4); MONOCYTES % 6.7 % (2.0-8.0); NEUTROPHILS % 79.7 % (40.0-76.0); PLATELET 249 x1000/uL (130-400); RED BLOOD CELL COUNT 3.99 mill/uL (4.2-5.4); RED CELL DISTRIBUTION WIDTH 15.7 % (11.6-14.6)
[2020-11-13 20:00] VITALS: BP 128/42
[2020-11-13] MEDS: ATORVASTATIN CALCIUM 40MG TABLET PO SCH (21:35)
[2020-11-13] MEDS: INSULIN GLARGINE UD 100 UNITS/ML SYR SUBCUT SCH (22:33)
[2020-11-14] MEDS: HYDROCODONE/ACETAMINOPHEN 5/325MG TABLET PO PRN ×3 (06:10→15:51)
[2020-11-14] MEDS: GABAPENTIN 300MG CAPSULE PO SCH ×3 (06:10→21:02)
[2020-11-14] MEDS: BLOOD SUGAR DIAGNOSTIC STRIP TEST SCH ×4 (06:14→20:57)
[2020-11-14] MEDS: INSULIN LISPRO 100 UNITS/ML SUBCUT SCH ×6 (06:56→17:00)
[2020-11-14 08:00] VITALS: BP 138/63
[2020-11-14 09:16] LABS: EOSINOPHILS % 1.2 % (0.0-5.0); HEMATOCRIT. 32.5 % (36.0-48.0); HEMOGLOBIN. 10.3 g/dL (12.0-16.0); LYMPHOCYTES % 18.8 % (20.0-50.0); MEAN CORPUSCULAR HEMOGLOBIN 24.9 pg (28.0-32.0); MEAN CORPUSCULAR VOLUME 78.5 fL (81.0-99.0); MEAN PLATELET VOLUME 9.1 fl (7.4-10.4); MONOCYTES % 7.5 % (2.0-8.0); NEUTROPHILS % 71.5 % (40.0-76.0); PLATELET 245 x1000/uL (130-400); RED BLOOD CELL COUNT 4.14 mill/uL (4.2-5.4); RED CELL DISTRIBUTION WIDTH 15.4 % (11.6-14.6)
[2020-11-14 09:25] LABS: CHLORIDE 104 mEq/L (98-107)
[2020-11-14] MEDS: DOCUSATE SODIUM 100MG CAPSULE PO SCH ×2 (09:39→18:45)
[2020-11-14] MEDS: FUROSEMIDE 40MG TABLET PO SCH (09:40)
[2020-11-14] MEDS: MAGNESIUM/ALUMINUM HYDROXIDE/SIMETHICONE 30ML UDC PO PRN (09:40)
[2020-11-14] MEDS: POLYETHYLENE GLYCOL 3350 (17GM) 1 DOSE PACK PO SCH (09:40)
[2020-11-14] MEDS: MAGNESIUM OXIDE 400MG TABLET PO SCH (09:40)
[2020-11-14] MEDS: AMLODIPINE 5MG TABLET PO SCH (09:41)
[2020-11-14] MEDS: PREDNISONE 5MG TABLET PO SCH ×2 (09:41→18:46)
[2020-11-14] MEDS: ENOXAPARIN 40MG/0.4ML SYR SUBCUT SCH (09:42)
[2020-11-14] MEDS ORDERED: CYANOCOBALAMIN 1000MCG/ML VIAL IM NR (15:00)
[2020-11-14] MEDS ORDERED: POTASSIUM CHLORIDE 20MEQ TABLET SR PO NR (15:00)
[2020-11-14] MEDS: FERROUS SULFATE 325MG TABLET PO SCH (18:45)
[2020-11-14 20:00] VITALS: BP 127/79
[2020-11-14] MEDS: ATORVASTATIN CALCIUM 40MG TABLET PO SCH (20:57)
[2020-11-14] MEDS: INSULIN GLARGINE UD 100 UNITS/ML SYR SUBCUT SCH (21:03)
[2020-11-15] MEDS: BLOOD SUGAR DIAGNOSTIC STRIP TEST SCH ×4 (06:02→20:24)
[2020-11-15] MEDS: GABAPENTIN 300MG CAPSULE PO SCH ×3 (06:02→21:30)
[2020-11-15] MEDS: INSULIN LISPRO 100 UNITS/ML SUBCUT SCH ×6 (06:25→18:12)
[2020-11-15 07:06] LABS: CHLORIDE 104 mEq/L (98-107)
[2020-11-15 08:00] VITALS: BP 158/64
[2020-11-15] MEDS: FUROSEMIDE 40MG TABLET PO SCH (09:12)
[2020-11-15] MEDS: AMLODIPINE 5MG TABLET PO SCH (09:13)
[2020-11-15] MEDS: PREDNISONE 5MG TABLET PO SCH ×2 (09:13→18:08)
[2020-11-15] MEDS: DOCUSATE SODIUM 100MG CAPSULE PO SCH ×2 (09:13→18:07)
[2020-11-15] MEDS: FERROUS SULFATE 325MG TABLET PO SCH ×3 (09:13→18:08)
[2020-11-15] MEDS: MAGNESIUM OXIDE 400MG TABLET PO SCH (09:13)
[2020-11-15] MEDS: HYDROCODONE/ACETAMINOPHEN 5/325MG TABLET PO PRN ×3 (09:14→21:37)
[2020-11-15] MEDS: ASCORBIC ACID 500 MG TABLET PO SCH (09:14)
[2020-11-15] MEDS: ENOXAPARIN 40MG/0.4ML SYR SUBCUT SCH (09:15)
[2020-11-15 20:00] VITALS: BP 97/52
[2020-11-15] MEDS: ATORVASTATIN CALCIUM 40MG TABLET PO SCH (20:24)
[2020-11-15] MEDS: INSULIN GLARGINE UD 100 UNITS/ML SYR SUBCUT SCH (21:43)
[2020-11-15 23:00] VITALS: BP 159/62
[2020-11-16] MEDS: BLOOD SUGAR DIAGNOSTIC STRIP TEST SCH ×4 (05:48→21:50)
[2020-11-16] MEDS: GABAPENTIN 300MG CAPSULE PO SCH ×3 (05:48→21:51)
[2020-11-16] MEDS: INSULIN LISPRO 100 UNITS/ML SUBCUT SCH ×6 (06:24→17:22)
[2020-11-16 07:12] VITALS: BP 123/70
[2020-11-16] MEDS: FERROUS SULFATE 325MG TABLET PO SCH ×3 (08:07→17:00)
[2020-11-16] MEDS: PREDNISONE 5MG TABLET PO SCH ×2 (08:07→17:14)
[2020-11-16] MEDS: FUROSEMIDE 40MG TABLET PO SCH (08:07)
[2020-11-16] MEDS: MAGNESIUM OXIDE 400MG TABLET PO SCH (08:07)
[2020-11-16] MEDS: AMLODIPINE 5MG TABLET PO SCH (08:08)
[2020-11-16] MEDS: ASCORBIC ACID 500 MG TABLET PO SCH (08:08)
[2020-11-16] MEDS: ENOXAPARIN 40MG/0.4ML SYR SUBCUT SCH (08:08)
[2020-11-16] MEDS: DOCUSATE SODIUM 100MG CAPSULE PO SCH ×3 (08:09→17:00)
[2020-11-16] MEDS: HYDROCODONE/ACETAMINOPHEN 5/325MG TABLET PO PRN ×2 (09:41→22:32)
[2020-11-16] MEDS ORDERED: DEXT15DR5 EACHEYE (19:40)
[2020-11-16 20:00] VITALS: BP 133/64
[2020-11-16] MEDS: ATORVASTATIN CALCIUM 40MG TABLET PO SCH (21:51)
[2020-11-16] MEDS: ARTIFICIAL TEARS EACHEYE PRN (21:51)
[2020-11-16] MEDS: INSULIN GLARGINE UD 100 UNITS/ML SYR SUBCUT SCH (22:03)
[2020-11-17] MEDS: INSULIN LISPRO 100 UNITS/ML SUBCUT SCH ×6 (05:45→17:22)
[2020-11-17] MEDS: BLOOD SUGAR DIAGNOSTIC STRIP TEST SCH ×4 (05:46→21:52)
[2020-11-17] MEDS: GABAPENTIN 300MG CAPSULE PO SCH ×3 (06:19→21:52)
[2020-11-17] MEDS: HYDROCODONE/ACETAMINOPHEN 5/325MG TABLET PO PRN ×3 (06:20→14:44)
[2020-11-17 07:59] VITALS: BP 127/63
[2020-11-17] MEDS: PREDNISONE 5MG TABLET PO SCH ×2 (08:57→17:18)
[2020-11-17] MEDS: FUROSEMIDE 40MG TABLET PO SCH (08:57)
[2020-11-17] MEDS: ASCORBIC ACID 500 MG TABLET PO SCH (08:57)
[2020-11-17] MEDS: FERROUS SULFATE 325MG TABLET PO SCH ×3 (08:57→16:59)
[2020-11-17] MEDS: MAGNESIUM OXIDE 400MG TABLET PO SCH (08:58)
[2020-11-17] MEDS: DOCUSATE SODIUM 100MG CAPSULE PO SCH ×2 (08:58→16:59)
[2020-11-17] MEDS: AMLODIPINE 5MG TABLET PO SCH (08:58)
[2020-11-17] MEDS: ENOXAPARIN 40MG/0.4ML SYR SUBCUT SCH (08:58)
[2020-11-17] MEDS ORDERED: IPRATROPIUM/ALBUTEROL 0.5-3(2.5)MG/3ML NEB HHN SCH (13:00)
[2020-11-17 13:23] LABS: HEMATOCRIT. 33.3 % (36.0-48.0); HEMOGLOBIN. 10.4 g/dL (12.0-16.0); MEAN CORPUSCULAR HEMOGLOBIN 24.8 pg (28.0-32.0); MEAN CORPUSCULAR VOLUME 79.1 fL (81.0-99.0); MEAN PLATELET VOLUME 7.9 fl (7.4-10.4); PLATELET 403 x1000/uL (130-400); RED BLOOD CELL COUNT 4.21 mill/uL (4.2-5.4)
[2020-11-17 13:29] LABS: CHLORIDE 101 mEq/L (98-107)
[2020-11-17 16:06] LABS: PLATELET ESTIMATE INCREASED
[2020-11-17 20:00] VITALS: BP 118/76
[2020-11-17] MEDS: ATORVASTATIN CALCIUM 40MG TABLET PO SCH (21:52)
[2020-11-17] MEDS: INSULIN GLARGINE UD 100 UNITS/ML SYR SUBCUT SCH (22:00)
[2020-11-18] MEDS: IPRATROPIUM/ALBUTEROL 0.5-3(2.5)MG/3ML NEB HHN SCH ×3 (01:22→14:00)
[2020-11-18] MEDS: BLOOD SUGAR DIAGNOSTIC STRIP TEST SCH ×4 (05:44→21:21)
[2020-11-18] MEDS: GABAPENTIN 300MG CAPSULE PO SCH ×3 (05:44→21:23)
[2020-11-18] MEDS: INSULIN LISPRO 100 UNITS/ML SUBCUT SCH ×6 (07:00→17:40)
[2020-11-18 07:52] VITALS: BP 108/54
[2020-11-18] MEDS: FERROUS SULFATE 325MG TABLET PO SCH ×3 (08:14→17:33)
[2020-11-18] MEDS: FUROSEMIDE 40MG TABLET PO SCH (08:14)
[2020-11-18] MEDS: ASCORBIC ACID 500 MG TABLET PO SCH (08:14)
[2020-11-18] MEDS: MAGNESIUM OXIDE 400MG TABLET PO SCH (08:14)
[2020-11-18] MEDS: PREDNISONE 5MG TABLET PO SCH ×2 (08:14→17:34)
[2020-11-18] MEDS: ENOXAPARIN 40MG/0.4ML SYR SUBCUT SCH (08:15)
[2020-11-18] MEDS: HYDROCODONE/ACETAMINOPHEN 5/325MG TABLET PO PRN ×3 (08:15→22:50)
[2020-11-18] MEDS: DOCUSATE SODIUM 100MG CAPSULE PO SCH ×2 (08:16→17:00)
[2020-11-18] MEDS: AMLODIPINE 5MG TABLET PO SCH (08:16)
[2020-11-18] MEDS: CLINDAMYCIN 300 MG in DEXTROSE 5% WATER 50 ML IV SCH ×2 (12:52→21:23)
[2020-11-18 15:11] LABS: 25-HYDROXY VITAMIN D3 30 ng/mL (.)
[2020-11-18] MEDS ORDERED: CEFAZOLIN 1000MG PREMIX 50 ML IV SCH (15:30)
[2020-11-18] MEDS: CEFAZOLIN 1000MG PREMIX 50 ML IV SCH (16:39)
[2020-11-18] MEDS: ERGOCALCIFEROL 50000UNITS CAPSULE PO SCH (17:34)
[2020-11-18 20:00] VITALS: BP 157/54
[2020-11-18] MEDS: ATORVASTATIN CALCIUM 40MG TABLET PO SCH (21:23)
[2020-11-18] MEDS: INSULIN GLARGINE UD 100 UNITS/ML SYR SUBCUT SCH (21:40)
[2020-11-19] MEDS: CEFAZOLIN 1000MG PREMIX 50 ML IV SCH ×3 (00:52→16:42)
[2020-11-19] MEDS: BLOOD SUGAR DIAGNOSTIC STRIP TEST SCH ×4 (06:19→20:06)
[2020-11-19] MEDS: CLINDAMYCIN 300 MG in DEXTROSE 5% WATER 50 ML IV SCH (06:27)
[2020-11-19] MEDS: GABAPENTIN 300MG CAPSULE PO SCH ×3 (06:27→22:00)
[2020-11-19] MEDS: HYDROCODONE/ACETAMINOPHEN 5/325MG TABLET PO PRN ×2 (06:28→14:17)
[2020-11-19] MEDS: INSULIN LISPRO 100 UNITS/ML SUBCUT SCH ×4 (06:44→17:00)
[2020-11-19 06:54] LABS: HEMATOCRIT. 31.5 % (36.0-48.0); HEMOGLOBIN. 9.9 g/dL (12.0-16.0); MEAN CORPUSCULAR HEMOGLOBIN 25.4 pg (28.0-32.0); MEAN CORPUSCULAR VOLUME 80.8 fL (81.0-99.0); MEAN PLATELET VOLUME 8.1 fl (7.4-10.4); PLATELET 390 x1000/uL (130-400); RED BLOOD CELL COUNT 3.89 mill/uL (4.2-5.4); RED CELL DISTRIBUTION WIDTH 15.9 % (11.6-14.6)
[2020-11-19] MEDS: IPRATROPIUM/ALBUTEROL 0.5-3(2.5)MG/3ML NEB HHN SCH ×3 (07:50→23:51)
[2020-11-19 08:25] VITALS: BP 152/59
[2020-11-19] MEDS: ASCORBIC ACID 500 MG TABLET PO SCH (08:49)
[2020-11-19] MEDS: DOCUSATE SODIUM 100MG CAPSULE PO SCH ×2 (08:49→18:26)
[2020-11-19] MEDS: AMLODIPINE 5MG TABLET PO SCH (08:50)
[2020-11-19] MEDS: PREDNISONE 5MG TABLET PO SCH ×2 (10:44→18:27)
[2020-11-19] MEDS: FERROUS SULFATE 325MG TABLET PO SCH ×3 (10:44→18:26)
[2020-11-19] MEDS: FUROSEMIDE 40MG TABLET PO SCH (10:44)
[2020-11-19] MEDS: MAGNESIUM OXIDE 400MG TABLET PO SCH (10:44)
[2020-11-19] MEDS: ENOXAPARIN 40MG/0.4ML SYR SUBCUT SCH (10:45)
[2020-11-19] MEDS: MAGNESIUM/ALUMINUM HYDROXIDE/SIMETHICONE 30ML UDC PO PRN (14:14)
[2020-11-19] MEDS ORDERED: INSULIN LISPRO 100 UNITS/ML SUBCUT SCH (17:00)
[2020-11-19 19:37] LABS: PLATELET ESTIMATE NORMAL
[2020-11-19 20:00] VITALS: BP 139/61
[2020-11-19] MEDS: ATORVASTATIN CALCIUM 40MG TABLET PO SCH (20:06)
[2020-11-19] MEDS ORDERED: INSULIN LISPRO 100 UNITS/ML SUBCUT NR (20:45)
[2020-11-19] MEDS: INSULIN GLARGINE UD 100 UNITS/ML SYR SUBCUT SCH (22:03)
[2020-11-20] MEDS: CEFAZOLIN 1000MG PREMIX 50 ML IV SCH ×4 (00:52→23:55)
[2020-11-20] MEDS: GABAPENTIN 300MG CAPSULE PO SCH ×3 (06:21→21:51)
[2020-11-20] MEDS: BLOOD SUGAR DIAGNOSTIC STRIP TEST SCH ×4 (06:32→21:51)
[2020-11-20] MEDS: INSULIN LISPRO 100 UNITS/ML SUBCUT SCH ×6 (06:39→17:13)
[2020-11-20 07:20] LABS: BASOPHILS % 0.6 % (0.0-2.0); EOSINOPHILS % 1.2 % (0.0-5.0); HEMATOCRIT. 26.3 % (36.0-48.0); HEMOGLOBIN. 8.5 g/dL (12.0-16.0); LYMPHOCYTES % 11.4 % (20.0-50.0); MEAN CORPUSCULAR HEMOGLOBIN 25.7 pg (28.0-32.0); MEAN CORPUSCULAR VOLUME 79.8 fL (81.0-99.0); MONOCYTES % 6.4 % (2.0-8.0); NEUTROPHILS % 80.4 % (40.0-76.0); PLATELET 343 x1000/uL (130-400)
[2020-11-20 07:30] LABS: CHLORIDE 116 mEq/L (98-107)
[2020-11-20 08:04] VITALS: BP 160/58
[2020-11-20] MEDS: ENOXAPARIN 40MG/0.4ML SYR SUBCUT SCH (09:00)
[2020-11-20] MEDS: FERROUS SULFATE 325MG TABLET PO SCH ×3 (09:07→16:47)
[2020-11-20] MEDS: DOCUSATE SODIUM 100MG CAPSULE PO SCH ×2 (09:07→16:47)
[2020-11-20] MEDS: FUROSEMIDE 20MG TABLET PO SCH (09:07)
[2020-11-20] MEDS: PREDNISONE 5MG TABLET PO SCH ×2 (09:08→16:47)
[2020-11-20] MEDS: AMLODIPINE 5MG TABLET PO SCH (09:08)
[2020-11-20] MEDS: MAGNESIUM OXIDE 400MG TABLET PO SCH ×2 (09:08→10:30)
[2020-11-20] MEDS: ASCORBIC ACID 500 MG TABLET PO SCH (09:09)
[2020-11-20] MEDS: HYDROCODONE/ACETAMINOPHEN 5/325MG TABLET PO PRN ×2 (09:10→14:03)
[2020-11-20] MEDS: IPRATROPIUM/ALBUTEROL 0.5-3(2.5)MG/3ML NEB HHN SCH ×2 (09:29→14:27)
[2020-11-20 20:00] VITALS: BP 140/69
[2020-11-20] MEDS: ATORVASTATIN CALCIUM 40MG TABLET PO SCH (21:51)
[2020-11-20] MEDS: INSULIN GLARGINE UD 100 UNITS/ML SYR SUBCUT SCH (21:53)
[2020-11-20] MEDS: DIPHENHYDRAMINE 50MG/ML VIAL IV PRN (23:55)
[2020-11-21] MEDS: IPRATROPIUM/ALBUTEROL 0.5-3(2.5)MG/3ML NEB HHN SCH ×4 (00:13→22:00)
[2020-11-21] MEDS: GABAPENTIN 300MG CAPSULE PO SCH ×3 (05:56→20:55)
[2020-11-21] MEDS: BLOOD SUGAR DIAGNOSTIC STRIP TEST SCH ×4 (06:00→20:56)
[2020-11-21] MEDS: INSULIN LISPRO 100 UNITS/ML SUBCUT SCH ×6 (06:00→17:37)
[2020-11-21] MEDS: HYDROCODONE/ACETAMINOPHEN 5/325MG TABLET PO PRN ×3 (07:06→22:13)
[2020-11-21 07:15] LABS: BASOPHILS % 0.6 % (0.0-2.0); EOSINOPHILS % 1.2 % (0.0-5.0); HEMATOCRIT. 30.3 % (36.0-48.0); HEMOGLOBIN. 9.5 g/dL (12.0-16.0); LYMPHOCYTES % 16.9 % (20.0-50.0); MEAN CORPUSCULAR HEMOGLOBIN 25.3 pg (28.0-32.0); MEAN CORPUSCULAR VOLUME 80.5 fL (81.0-99.0); MEAN PLATELET VOLUME 7.9 fl (7.4-10.4); MONOCYTES % 7.5 % (2.0-8.0); NEUTROPHILS % 73.8 % (40.0-76.0); PLATELET 418 x1000/uL (130-400); RED BLOOD CELL COUNT 3.76 mill/uL (4.2-5.4); RED CELL DISTRIBUTION WIDTH 16.1 % (11.6-14.6)
[2020-11-21 08:00] VITALS: BP 152/71
[2020-11-21] MEDS: MAGNESIUM OXIDE 400MG TABLET PO SCH (09:00)
[2020-11-21] MEDS: MAGNESIUM GLUCONATE 500MG TABLET PO SCH (10:06)
[2020-11-21] MEDS: PREDNISONE 5MG TABLET PO SCH ×2 (10:07→17:35)
[2020-11-21] MEDS: DOCUSATE SODIUM 100MG CAPSULE PO SCH ×2 (10:07→17:35)
[2020-11-21] MEDS: ASCORBIC ACID 500 MG TABLET PO SCH (10:07)
[2020-11-21] MEDS: AMLODIPINE 5MG TABLET PO SCH (10:07)
[2020-11-21] MEDS: FUROSEMIDE 20MG TABLET PO SCH (10:07)
[2020-11-21] MEDS: FERROUS SULFATE 325MG TABLET PO SCH ×3 (10:07→17:35)
[2020-11-21] MEDS: CEFAZOLIN 1000MG PREMIX 50 ML IV SCH ×3 (10:08→23:34)
[2020-11-21] MEDS: ENOXAPARIN 40MG/0.4ML SYR SUBCUT SCH (10:08)
[2020-11-21] MEDS ORDERED: ACETAMINOPHEN 325MG TABLET PO PRN ×2 (13:15)
[2020-11-21] MEDS ORDERED: ACETAMINOPHEN 650MG SUPP PR PRN ×2 (13:15)
[2020-11-21 20:00] VITALS: BP 112/51
[2020-11-21] MEDS: INSULIN GLARGINE UD 100 UNITS/ML SYR SUBCUT SCH (20:54)
[2020-11-21] MEDS: ATORVASTATIN CALCIUM 40MG TABLET PO SCH (20:55)
[2020-11-21] MEDS: DIPHENHYDRAMINE 50MG/ML VIAL IV PRN (23:34)
[2020-11-22] MEDS: INSULIN LISPRO 100 UNITS/ML SUBCUT SCH ×6 (06:46→16:05)
[2020-11-22] MEDS: BLOOD SUGAR DIAGNOSTIC STRIP TEST SCH ×4 (06:46→20:23)
[2020-11-22] MEDS: GABAPENTIN 300MG CAPSULE PO SCH ×3 (06:47→21:08)
[2020-11-22] MEDS: IPRATROPIUM/ALBUTEROL 0.5-3(2.5)MG/3ML NEB HHN SCH (07:24)
[2020-11-22 07:55] VITALS: BP 180/75
[2020-11-22] MEDS: ENOXAPARIN 40MG/0.4ML SYR SUBCUT SCH (08:13)
[2020-11-22] MEDS: FERROUS SULFATE 325MG TABLET PO SCH ×3 (08:13→16:01)
[2020-11-22] MEDS: MAGNESIUM GLUCONATE 500MG TABLET PO SCH (08:13)
[2020-11-22] MEDS: ASCORBIC ACID 500 MG TABLET PO SCH (08:13)
[2020-11-22] MEDS: PREDNISONE 5MG TABLET PO SCH ×2 (08:13→16:00)
[2020-11-22] MEDS: FUROSEMIDE 20MG TABLET PO SCH (08:14)
[2020-11-22] MEDS: DOCUSATE SODIUM 100MG CAPSULE PO SCH ×2 (08:14→16:01)
[2020-11-22] MEDS: MAGNESIUM OXIDE 400MG TABLET PO SCH (08:14)
[2020-11-22] MEDS: AMLODIPINE 5MG TABLET PO SCH (08:14)
[2020-11-22] MEDS: CLONIDINE 0.1MG TABLET PO PRN (08:18)
[2020-11-22] MEDS: CEFAZOLIN 1000MG PREMIX 50 ML IV SCH ×3 (08:18→23:41)
[2020-11-22] MEDS ORDERED: IPRATROPIUM/ALBUTEROL 0.5-3(2.5)MG/3ML NEB HHN PRN (11:45)
[2020-11-22] MEDS: HYDROCODONE/ACETAMINOPHEN 5/325MG TABLET PO PRN (14:25)
[2020-11-22 20:00] VITALS: BP 156/62
[2020-11-22] MEDS: ATORVASTATIN CALCIUM 40MG TABLET PO SCH (20:23)
[2020-11-22] MEDS: INSULIN GLARGINE UD 100 UNITS/ML SYR SUBCUT SCH (21:03)
[2020-11-22] MEDS: DIPHENHYDRAMINE 50MG/ML VIAL IV PRN (23:46)
[2020-11-23] MEDS: HYDROCODONE/ACETAMINOPHEN 5/325MG TABLET PO PRN ×4 (04:19→17:48)
[2020-11-23] MEDS: INSULIN LISPRO 100 UNITS/ML SUBCUT SCH ×6 (05:38→17:44)
[2020-11-23] MEDS: BLOOD SUGAR DIAGNOSTIC STRIP TEST SCH ×4 (05:38→21:54)
[2020-11-23] MEDS: GABAPENTIN 300MG CAPSULE PO SCH ×3 (05:38→21:50)
[2020-11-23 06:44] LABS: BASOPHILS % 0.7 % (0.0-2.0); EOSINOPHILS % 1.4 % (0.0-5.0); HEMATOCRIT. 29.4 % (36.0-48.0); HEMOGLOBIN. 9.5 g/dL (12.0-16.0); LYMPHOCYTES % 18.7 % (20.0-50.0); MEAN CORPUSCULAR VOLUME 80.2 fL (81.0-99.0); MEAN PLATELET VOLUME 7.7 fl (7.4-10.4); MONOCYTES % 9.5 % (2.0-8.0); NEUTROPHILS % 69.7 % (40.0-76.0); PLATELET 383 x1000/uL (130-400); RED BLOOD CELL COUNT 3.66 mill/uL (4.2-5.4); RED CELL DISTRIBUTION WIDTH 15.9 % (11.6-14.6)
[2020-11-23 06:50] LABS: CHLORIDE 108 mEq/L (98-107)
[2020-11-23 08:00] VITALS: BP 151/68
[2020-11-23] MEDS: CEFAZOLIN 1000MG PREMIX 50 ML IV SCH ×2 (08:27→08:39)
[2020-11-23] MEDS: ENOXAPARIN 40MG/0.4ML SYR SUBCUT SCH (08:28)
[2020-11-23] MEDS: MAGNESIUM OXIDE 400MG TABLET PO SCH (08:31)
[2020-11-23] MEDS: MAGNESIUM GLUCONATE 500MG TABLET PO SCH (08:31)
[2020-11-23] MEDS: FUROSEMIDE 20MG TABLET PO SCH (08:32)
[2020-11-23] MEDS: PREDNISONE 5MG TABLET PO SCH ×2 (08:32→17:41)
[2020-11-23] MEDS: AMLODIPINE 5MG TABLET PO SCH (08:32)
[2020-11-23] MEDS: DOCUSATE SODIUM 100MG CAPSULE PO SCH ×2 (08:33→17:41)
[2020-11-23] MEDS: ASCORBIC ACID 500 MG TABLET PO SCH (08:33)
[2020-11-23] MEDS: FERROUS SULFATE 325MG TABLET PO SCH ×3 (08:34→17:41)
[2020-11-23] MEDS: CEPHALEXIN 250MG CAPSULE PO SCH ×2 (17:39→23:20)
[2020-11-23 20:00] VITALS: BP 170/77
[2020-11-23] MEDS: ATORVASTATIN CALCIUM 40MG TABLET PO SCH (21:50)
[2020-11-23] MEDS: CLONIDINE 0.1MG TABLET PO PRN (21:51)
[2020-11-23] MEDS: INSULIN GLARGINE UD 100 UNITS/ML SYR SUBCUT SCH (22:16)
[2020-11-23] MEDS: ARTIFICIAL TEARS EACHEYE PRN (22:48)
[2020-11-23] MEDS: DIPHENHYDRAMINE 50MG/ML VIAL IV PRN (23:19)
[2020-11-24] MEDS: GABAPENTIN 300MG CAPSULE PO SCH ×3 (05:27→21:20)
[2020-11-24] MEDS: BLOOD SUGAR DIAGNOSTIC STRIP TEST SCH ×4 (05:32→21:01)
[2020-11-24] MEDS: HYDROCODONE/ACETAMINOPHEN 5/325MG TABLET PO PRN (06:07)
[2020-11-24] MEDS: INSULIN LISPRO 100 UNITS/ML SUBCUT SCH ×6 (06:25→17:25)
[2020-11-24 07:19] VITALS: BP 114/67
[2020-11-24] MEDS: CEPHALEXIN 250MG CAPSULE PO SCH ×3 (08:12→23:57)
[2020-11-24] MEDS: FUROSEMIDE 20MG TABLET PO SCH (08:13)
[2020-11-24] MEDS: FERROUS SULFATE 325MG TABLET PO SCH ×3 (08:13→17:23)
[2020-11-24] MEDS: ASCORBIC ACID 500 MG TABLET PO SCH (08:13)
[2020-11-24] MEDS: MAGNESIUM OXIDE 400MG TABLET PO SCH (08:13)
[2020-11-24] MEDS: DOCUSATE SODIUM 100MG CAPSULE PO SCH ×2 (08:13→17:00)
[2020-11-24] MEDS: MAGNESIUM GLUCONATE 500MG TABLET PO SCH (08:13)
[2020-11-24] MEDS: ENOXAPARIN 40MG/0.4ML SYR SUBCUT SCH (08:14)
[2020-11-24] MEDS: PREDNISONE 5MG TABLET PO SCH ×2 (08:14→17:23)
[2020-11-24] MEDS: AMLODIPINE 5MG TABLET PO SCH (09:00)
[2020-11-24 11:52] VITALS: BP 110/72
[2020-11-24 20:00] VITALS: BP 119/89
[2020-11-24] MEDS: ATORVASTATIN CALCIUM 40MG TABLET PO SCH (21:20)
[2020-11-24] MEDS: INSULIN GLARGINE UD 100 UNITS/ML SYR SUBCUT SCH (21:23)
[2020-11-24] MEDS: DIPHENHYDRAMINE 50MG/ML VIAL IV PRN (23:57)
[2020-11-25] MEDS: GABAPENTIN 300MG CAPSULE PO SCH ×3 (05:40→21:52)
[2020-11-25] MEDS: ARTIFICIAL TEARS EACHEYE PRN (05:43)
[2020-11-25] MEDS: BLOOD SUGAR DIAGNOSTIC STRIP TEST SCH ×4 (06:15→20:30)
[2020-11-25 08:00] VITALS: BP 143/89
[2020-11-25] MEDS: FERROUS SULFATE 325MG TABLET PO SCH ×3 (08:34→17:42)
[2020-11-25] MEDS: PREDNISONE 5MG TABLET PO SCH ×2 (08:34→17:42)
[2020-11-25] MEDS: ENOXAPARIN 40MG/0.4ML SYR SUBCUT SCH (08:34)
[2020-11-25] MEDS: MAGNESIUM OXIDE 400MG TABLET PO SCH (08:34)
[2020-11-25] MEDS: ASCORBIC ACID 500 MG TABLET PO SCH (08:34)
[2020-11-25] MEDS: FUROSEMIDE 20MG TABLET PO SCH (08:34)
[2020-11-25] MEDS: MAGNESIUM GLUCONATE 500MG TABLET PO SCH (08:34)
[2020-11-25] MEDS: DOCUSATE SODIUM 100MG CAPSULE PO SCH ×2 (08:34→17:42)
[2020-11-25] MEDS: AMLODIPINE 5MG TABLET PO SCH (08:35)
[2020-11-25] MEDS: HYDROCODONE/ACETAMINOPHEN 5/325MG TABLET PO PRN ×2 (08:39→15:13)
[2020-11-25] MEDS: INSULIN LISPRO 100 UNITS/ML SUBCUT SCH ×4 (08:44→17:46)
[2020-11-25] MEDS: CEPHALEXIN 250MG CAPSULE PO SCH ×2 (09:12→17:42)
[2020-11-25 10:34] LABS: HEMATOCRIT 32.4 % (36.0-48.0); HEMOGLOBIN 10.2 g/dL (12.0-16.0); MEAN CORPUSCULAR HEMOGLOBIN 25.4 pg (28.0-32.0); MEAN CORPUSCULAR VOLUME 81.2 fL (81.0-99.0); PLATELET 370 x1000/uL (130-400); RED BLOOD CELL COUNT 3.99 mill/uL (4.2-5.4); RED CELL DISTRIBUTION WIDTH 16.2 % (11.6-14.6)
[2020-11-25 10:44] LABS: CHLORIDE 107 mEq/L (98-107)
[2020-11-25] MEDS: ERGOCALCIFEROL 50000UNITS CAPSULE PO SCH (17:42)
[2020-11-25 17:44] LABS: HEMATOCRIT 32.1 % (36.0-48.0); HEMOGLOBIN 10.2 g/dL (12.0-16.0); MEAN CORPUSCULAR HEMOGLOBIN 25.5 pg (28.0-32.0); MEAN CORPUSCULAR VOLUME 80.1 fL (81.0-99.0); PLATELET 381 x1000/uL (130-400); RED CELL DISTRIBUTION WIDTH 16.5 % (11.6-14.6)
[2020-11-25 20:00] VITALS: BP 165/69
[2020-11-25] MEDS: ATORVASTATIN CALCIUM 40MG TABLET PO SCH (20:30)
[2020-11-25] MEDS: CLONIDINE 0.1MG TABLET PO PRN (21:52)
[2020-11-25] MEDS: INSULIN GLARGINE UD 100 UNITS/ML SYR SUBCUT SCH (21:54)
[2020-11-25] MEDS: DIPHENHYDRAMINE 50MG/ML VIAL IV PRN (23:00)
[2020-11-26] MEDS: GABAPENTIN 300MG CAPSULE PO SCH ×3 (05:52→22:09)
[2020-11-26] MEDS: BLOOD SUGAR DIAGNOSTIC STRIP TEST SCH ×4 (05:53→21:00)
[2020-11-26] MEDS: INSULIN LISPRO 100 UNITS/ML SUBCUT SCH ×7 (05:57→18:29)
[2020-11-26 07:49] LABS: BASOPHILS % 0.6 % (0.0-2.0); EOSINOPHILS % 1.7 % (0.0-5.0); HEMATOCRIT. 30.8 % (36.0-48.0); LYMPHOCYTES % 20.3 % (20.0-50.0); MEAN CORPUSCULAR HEMOGLOBIN 25.9 pg (28.0-32.0); MEAN CORPUSCULAR VOLUME 79.8 fL (81.0-99.0); MEAN PLATELET VOLUME 7.8 fl (7.4-10.4); MONOCYTES % 8.3 % (2.0-8.0); NEUTROPHILS % 69.1 % (40.0-76.0); PLATELET 339 x1000/uL (130-400); RED BLOOD CELL COUNT 3.86 mill/uL (4.2-5.4); RED CELL DISTRIBUTION WIDTH 16.2 % (11.6-14.6)
[2020-11-26 08:15] VITALS: BP 153/64
[2020-11-26] MEDS: PREDNISONE 5MG TABLET PO SCH ×2 (09:18→18:22)
[2020-11-26] MEDS: FUROSEMIDE 20MG TABLET PO SCH (09:18)
[2020-11-26] MEDS: MAGNESIUM OXIDE 400MG TABLET PO SCH (09:18)
[2020-11-26] MEDS: FERROUS SULFATE 325MG TABLET PO SCH ×3 (09:18→18:22)
[2020-11-26] MEDS: ASCORBIC ACID 500 MG TABLET PO SCH (09:18)
[2020-11-26] MEDS: DOCUSATE SODIUM 100MG CAPSULE PO SCH ×2 (09:18→18:22)
[2020-11-26] MEDS: HYDROCODONE/ACETAMINOPHEN 5/325MG TABLET PO PRN (09:19)
[2020-11-26] MEDS: AMLODIPINE 5MG TABLET PO SCH (09:19)
[2020-11-26] MEDS: ENOXAPARIN 40MG/0.4ML SYR SUBCUT SCH (09:32)
[2020-11-26] MEDS ORDERED: METFORMIN HCL 500MG TABLET PO ONE (11:45)
[2020-11-26] MEDS ORDERED: AMLO5TAB88 PO (12:55)
[2020-11-26] MEDS ORDERED: FURO20TA4 PO (12:55)
[2020-11-26] MEDS ORDERED: APIX2.5T PO (12:55)
[2020-11-26] MEDS ORDERED: EMPA10TA MT (12:55)
[2020-11-26 20:00] VITALS: BP 158/56
[2020-11-26] MEDS ORDERED: INSULIN GLARGINE UD 100 UNITS/ML SYR SUBCUT SCH (22:00)
[2020-11-26] MEDS: ATORVASTATIN CALCIUM 40MG TABLET PO SCH (22:08)
[2020-11-26] MEDS: DIPHENHYDRAMINE 50MG/ML VIAL IV PRN (23:18)
[2020-11-27] MEDS: BLOOD SUGAR DIAGNOSTIC STRIP TEST SCH ×2 (05:55→12:03)
[2020-11-27] MEDS: GABAPENTIN 300MG CAPSULE PO SCH (06:19)
[2020-11-27] MEDS: HYDROCODONE/ACETAMINOPHEN 5/325MG TABLET PO PRN ×2 (06:27→11:21)
[2020-11-27] MEDS: INSULIN LISPRO 100 UNITS/ML SUBCUT SCH ×4 (06:37→12:45)
[2020-11-27 08:00] VITALS: BP 133/62
[2020-11-27] MEDS: MAGNESIUM OXIDE 400MG TABLET PO SCH (08:05)
[2020-11-27] MEDS: FUROSEMIDE 20MG TABLET PO SCH (08:05)
[2020-11-27] MEDS: DOCUSATE SODIUM 100MG CAPSULE PO SCH (08:05)
[2020-11-27] MEDS: FERROUS SULFATE 325MG TABLET PO SCH ×2 (08:05→12:17)
[2020-11-27] MEDS: ASCORBIC ACID 500 MG TABLET PO SCH (08:05)
[2020-11-27] MEDS: PREDNISONE 5MG TABLET PO SCH (08:05)
[2020-11-27] MEDS: AMLODIPINE 5MG TABLET PO SCH (08:06)
[2020-11-27] MEDS: ENOXAPARIN 40MG/0.4ML SYR SUBCUT SCH (08:06)
[2020-11-27] MEDS ORDERED: TRAZ-251 MT (10:06)
[2020-11-27] MEDS ORDERED: LOSA25TA26 MT (10:06)
[2020-11-27] MEDS ORDERED: PRAN1 MT (10:10)
[2020-11-27] MEDS ORDERED: EMPA25TA MT (10:16)
[2020-11-27] MEDS ORDERED: APIX2.5T MT (13:08)
[2020-11-27 13:28] VITALS: BP 133/62
== END 2020-11-27 16:13 | disposition home health service (06) | DRG 535 ==
PROVIDERS: ADMIT Physical Medicine & Rehabilitation Spinal Cord Injury Medicine; ATTEND Family Medicine Adult Medicine
DX: S72.011A Unspecified intracapsular fracture of right femur, initial encounter for closed fracture (principal); A41.9 Sepsis, unspecified organism; N17.9 Acute kidney failure, unspecified; E87.2 Acidosis; E27.40 Unspecified adrenocortical insufficiency; I48.92 Unspecified atrial flutter; I50.32 Chronic diastolic (congestive) heart failure; I13.0 Hypertensive heart and chronic kidney disease with heart failure and stage 1 through stage 4 chronic kidney disease, or unspecified chronic kidney disease; E44.1 Mild protein-calorie malnutrition; T81.41XA Infection following a procedure, superficial incisional surgical site, initial encounter; K21.9 Gastro-esophageal reflux disease without esophagitis; I48.0 Paroxysmal atrial fibrillation; G89.4 Chronic pain syndrome; E87.6 Hypokalemia; E78.5 Hyperlipidemia, unspecified; E87.5 Hyperkalemia; J44.9 Chronic obstructive pulmonary disease, unspecified; E78.00 Pure hypercholesterolemia, unspecified; E66.9 Obesity, unspecified; M17.11 Unilateral primary osteoarthritis, right knee; Z96.641 Presence of right artificial hip joint; E11.22 Type 2 diabetes mellitus with diabetic chronic kidney disease; E11.65 Type 2 diabetes mellitus with hyperglycemia; E83.42 Hypomagnesemia; E83.51 Hypocalcemia; N18.9 Chronic kidney disease, unspecified; W06.XXXA Fall from bed, initial encounter; D50.9 Iron deficiency anemia, unspecified; Y83.8 Other surgical procedures as the cause of abnormal reaction of the patient, or of later complication, without mention of misadventure at the time of the procedure; I25.10 Atherosclerotic heart disease of native coronary artery without angina pectoris; E11.42 Type 2 diabetes mellitus with diabetic polyneuropathy; R53.81 Other malaise; F06.34 Mood disorder due to known physiological condition with mixed features; Z85.3 Personal history of malignant neoplasm of breast; Z92.21 Personal history of antineoplastic chemotherapy; Z86.718 Personal history of other venous thrombosis and embolism; Z90.49 Acquired absence of other specified parts of digestive tract; Z82.49 Family history of ischemic heart disease and other diseases of the circulatory system; Z86.73 Personal history of transient ischemic attack (TIA), and cerebral infarction without residual deficits; Z87.81 Personal history of (healed) traumatic fracture; Z79.4 Long term (current) use of insulin; Z79.52 Long term (current) use of systemic steroids; Z86.011 Personal history of benign neoplasm of the brain; Z79.899 Other long term (current) drug therapy; Y93.89 Activity, other specified; Y92.89 Other specified places as the place of occurrence of the external cause; Y99.8 Other external cause status; Z68.29 Body mass index [BMI] 29.0-29.9, adult; Z71.3 Dietary counseling and surveillance
CPT/HCPCS: 36415; 80048; 80053; 81003; 82306; 82330; 82550; 82607; 82728; 82746; 82962; 83540; 83550; 83735; 84100; 84134; 84443; 85025; 85027; 93970; 93971; 94640; 97110; 97116; 97140; 97150; 97162; 97166; 97530; 97535; J0690; J1200; J1650; J1815; J3420; J3490; J7040; J7060; J7512

== ENCOUNTER 2021-04-10 16:26 | Inpatient (IN) | payer MEDICARE, MEDICAID ==
[~2021-04-10] VITALS: Ht 160 cm; Wt 74.8 kg
[~2021-04-10 16:26] MED LIST changes: +DEXT15DR5 EACHEYE; -LOSA100T32 PO; -OMEP40CA12 PO; +OMEP40CA20 PO
[2021-04-10 20:57] LABS: BASOPHILS % 0.5 % (0.0-2.0); EOSINOPHILS % 0.5 % (0.0-5.0); HEMATOCRIT. 46.4 % (36.0-48.0); HEMOGLOBIN. 15.1 g/dL (12.0-16.0); LYMPHOCYTES % 17.6 % (20.0-50.0); MEAN CORPUSCULAR HEMOGLOBIN 25.6 pg (28.0-32.0); MEAN CORPUSCULAR VOLUME 78.4 fL (81.0-99.0); MEAN PLATELET VOLUME 8.1 fl (7.4-10.4); MONOCYTES % 8.2 % (2.0-8.0); NEUTROPHILS % 73.2 % (40.0-76.0); PLATELET 314 x1000/uL (130-400); RED BLOOD CELL COUNT 5.92 mill/uL (4.2-5.4); RED CELL DISTRIBUTION WIDTH 16.6 % (11.6-14.6)
[2021-04-10 20:59] LABS: CHLORIDE 104 mEq/L (98-107)
[2021-04-11] MEDS ORDERED: CLONIDINE 0.1MG TABLET PO PRN (04:15)
[2021-04-11] MEDS ORDERED: ONDANSETRON HCL 4MG/2ML INJ IV PRN (04:15)
[2021-04-11] MEDS ORDERED: DOCUSATE SODIUM 100MG CAPSULE PO PRN (04:15)
[2021-04-11] MEDS ORDERED: MAGNESIUM/ALUMINUM HYDROXIDE/SIMETHICONE 30ML UDC PO PRN (04:15)
[2021-04-11] MEDS: LORAZEPAM 2MG/ML CPJ IV PRN ×2 (04:17→23:24)
[2021-04-11] MEDS: ENOXAPARIN 40MG/0.4ML SYR SUBCUT SCH (05:08)
[2021-04-11 06:25] LABS: BASOPHILS % 0.7 % (0.0-2.0); EOSINOPHILS % 0.6 % (0.0-5.0); HEMATOCRIT. 45.6 % (36.0-48.0); HEMOGLOBIN. 14.8 g/dL (12.0-16.0); LYMPHOCYTES % 17.9 % (20.0-50.0); MEAN CORPUSCULAR HEMOGLOBIN 25.5 pg (28.0-32.0); MEAN CORPUSCULAR VOLUME 78.2 fL (81.0-99.0); MEAN PLATELET VOLUME 7.8 fl (7.4-10.4); MONOCYTES % 10.7 % (2.0-8.0); NEUTROPHILS % 70.1 % (40.0-76.0); PLATELET 293 x1000/uL (130-400); RED BLOOD CELL COUNT 5.83 mill/uL (4.2-5.4); RED CELL DISTRIBUTION WIDTH 16.7 % (11.6-14.6)
[2021-04-11 06:33] LABS: CHLORIDE 104 mEq/L (98-107)
[2021-04-11 06:40] LABS: CREATINE KINASE 83 IU/L (26-192)
[2021-04-11] MEDS: QUETIAPINE FUMARATE 25MG TABLET PO SCH ×2 (09:00→23:24)
[2021-04-11] MEDS ORDERED: POTASSIUM CHLORIDE 20MEQ/PACKET PO ONE (09:45)
[2021-04-11] MEDS: DEXT 5%/0.45% NACL 1000ML 1,000 ML IV SCH (10:05)
[2021-04-11] MEDS: ATORVASTATIN CALCIUM 40MG TABLET PO SCH (23:24)
[2021-04-11] MEDS: GABAPENTIN 300MG CAPSULE PO SCH (23:24)
[2021-04-12] MEDS: DEXT 5%/0.45% NACL 1000ML 1,000 ML IV SCH ×2 (02:54→19:05)
[2021-04-12] MEDS: ENOXAPARIN 40MG/0.4ML SYR SUBCUT SCH (04:32)
[2021-04-12] MEDS: GABAPENTIN 300MG CAPSULE PO SCH ×3 (06:00→22:00)
[2021-04-12 08:25] LABS: HEMATOCRIT. 45.6 % (36.0-48.0); HEMOGLOBIN. 14.6 g/dL (12.0-16.0); MEAN CORPUSCULAR HEMOGLOBIN 25.1 pg (28.0-32.0); MEAN CORPUSCULAR VOLUME 78.5 fL (81.0-99.0); MEAN PLATELET VOLUME 8.1 fl (7.4-10.4); PLATELET 265 x1000/uL (130-400); RED BLOOD CELL COUNT 5.81 mill/uL (4.2-5.4)
[2021-04-12 08:40] LABS: PHOSPHORUS 4.2 mg/dL (2.5-4.9)
[2021-04-12] MEDS: QUETIAPINE FUMARATE 25MG TABLET PO SCH (09:00)
[2021-04-12] MEDS ORDERED: AMLODIPINE 10MG TABLET PO SCH (09:00)
[2021-04-12 10:35] LABS: PLATELET ESTIMATE NORMAL
[2021-04-12] MEDS ORDERED: MAGNESIUM 2 G PREMIX 50 ML IV NR (17:00)
[2021-04-12] MEDS ORDERED: LIDOCAINE HCL/PF 1% 2ML VIAL ONE (18:45)
[2021-04-12] MEDS: ATORVASTATIN CALCIUM 40MG TABLET PO SCH (21:54)
[2021-04-12 22:10] LABS: BG BASE EXCESS -2.7 mmol/L (-2.0-2.0); BG CARBOXYHEMOGLOBIN 0.4 % (0.5-1.5); BG DEOXYHEMOGLOBIN 5.8 % (0.0-5.0); BG FRACTION INSPIRED OXYGEN 28; BG HCO3 ACT 21.3 mmol/L (22.0-26.0); BG METHEMOGLOBIN 0.3 % (0.0-1.5); BG OXYGEN SATURATION 94.2 % (92.0-98.5); BG OXYHEMOGLOBIN 93.5 % (94.0-97.0); BG PH 7.403 (7.350-7.450); BG PO2 71.4 mmHg (75.0-100.0); BG SAMPLE SITE RIGHT RADIAL; BG TOTAL HEMOGLOBIN 14.3 g/dL (12.0-18.0); BG VENT MODE ROOM AIR
[2021-04-13] MEDS: LORAZEPAM 2MG/ML CPJ IV PRN (03:09)
[2021-04-13] MEDS: ENOXAPARIN 40MG/0.4ML SYR SUBCUT SCH (04:52)
[2021-04-13] MEDS: GABAPENTIN 300MG CAPSULE PO SCH ×3 (06:14→21:16)
[2021-04-13] MEDS: AMLODIPINE 2.5MG TABLET PO SCH (09:00)
[2021-04-13] MEDS: DEXT 5%/0.45% NACL 1000ML 1,000 ML IV SCH (13:14)
[2021-04-13] MEDS ORDERED: MAGNESIUM 2 G PREMIX 50 ML IV ONE (14:15)
[2021-04-13] MEDS: ATORVASTATIN CALCIUM 40MG TABLET PO SCH (21:16)
[2021-04-13 22:30] LABS: HEMATOCRIT. 43.6 % (36.0-48.0); MEAN CORPUSCULAR HEMOGLOBIN 25.4 pg (28.0-32.0); MEAN CORPUSCULAR VOLUME 79.1 fL (81.0-99.0); MEAN PLATELET VOLUME 8.1 fl (7.4-10.4); PLATELET 292 x1000/uL (130-400); RED BLOOD CELL COUNT 5.51 mill/uL (4.2-5.4); RED CELL DISTRIBUTION WIDTH 16.4 % (11.6-14.6)
[2021-04-13 22:46] LABS: T4 FREE 1.82 ng/dL (0.76-1.46)
[2021-04-13 22:49] LABS: PLATELET ESTIMATE NORMAL
[2021-04-14] VITALS (10 sets, daily range): BP systolic 79–152; BP diastolic 34–64
[2021-04-14] MEDS: ACETAMINOPHEN 325MG TABLET PO PRN ×2 (03:45→22:09)
[2021-04-14] MEDS: DEXT 5%/0.45% NACL 1000ML 1,000 ML IV SCH ×2 (06:16→17:39)
[2021-04-14] MEDS: ENOXAPARIN 40MG/0.4ML SYR SUBCUT SCH (06:22)
[2021-04-14 08:20] LABS: HEMATOCRIT. 42.2 % (36.0-48.0); HEMOGLOBIN. 13.5 g/dL (12.0-16.0); MEAN CORPUSCULAR HEMOGLOBIN 25.5 pg (28.0-32.0); MEAN CORPUSCULAR VOLUME 79.8 fL (81.0-99.0); MEAN PLATELET VOLUME 8.3 fl (7.4-10.4); PLATELET 277 x1000/uL (130-400); RED BLOOD CELL COUNT 5.29 mill/uL (4.2-5.4); RED CELL DISTRIBUTION WIDTH 17.1 % (11.6-14.6)
[2021-04-14] MEDS ORDERED: SODIUM CHLORIDE 0.9% 500 ML IV ONE ×2 (08:30→09:00)
[2021-04-14] MEDS: AMLODIPINE 2.5MG TABLET PO SCH (09:00)
[2021-04-14] MEDS ORDERED: DEXT 5% WATER 500 ML IV ONE (09:00)
[2021-04-14] MEDS: GABAPENTIN 300MG CAPSULE PO SCH ×3 (09:33→22:07)
[2021-04-14] MEDS: PREDNISONE 5MG TABLET PO SCH ×2 (10:10→22:08)
[2021-04-14 11:03] LABS: CREATINE KINASE 103 IU/L (26-192)
[2021-04-14] MEDS ORDERED: HYDROCORTISONE SOD SUCCINATE 100 MG/2 ML VIAL IV NR (12:30)
[2021-04-14] MEDS: DILTIAZEM HCL 30MG TABLET PO SCH ×3 (12:38→23:15)
[2021-04-14] MEDS ORDERED: ENOXAPARIN 30MG/0.3ML SYR SUBCUT NR (16:30)
[2021-04-14 17:16] LABS: INR 1.1
[2021-04-14] MEDS: POLYVINYL ALCOHOL OPHTH DROPS 15ML BOTHEYE SCH ×2 (18:49→23:15)
[2021-04-14 20:59] LABS: PLATELET ESTIMATE NORMAL
[2021-04-14] MEDS: ATORVASTATIN CALCIUM 40MG TABLET PO SCH (22:08)
[2021-04-15] VITALS: BP 105/65
[2021-04-15] MEDS ORDERED: DEXTROSE 50% WATER 50ML SYRINGE IV PRN (00:15)
[2021-04-15] MEDS: INSULIN LISPRO 100 UNITS/ML SUBCUT SCH ×5 (00:22→21:15)
[2021-04-15] MEDS: DEXT 5%/0.45% NACL 1000ML 1,000 ML IV SCH (01:53)
[2021-04-15 04:00] VITALS: BP 104/54
[2021-04-15] MEDS: ENOXAPARIN 40MG/0.4ML SYR SUBCUT SCH (05:37)
[2021-04-15] MEDS: DILTIAZEM HCL 30MG TABLET PO SCH ×4 (05:37→23:39)
[2021-04-15] MEDS: BLOOD SUGAR DIAGNOSTIC STRIP TEST SCH ×4 (05:37→21:15)
[2021-04-15] MEDS: GABAPENTIN 300MG CAPSULE PO SCH ×4 (05:37→21:11)
[2021-04-15] MEDS: POLYVINYL ALCOHOL OPHTH DROPS 15ML BOTHEYE SCH ×4 (05:38→23:29)
[2021-04-15] MEDS ORDERED: LIDOCAINE HCL 1% 20ML VIAL (Pyxis) INJ ONE (07:49)
[2021-04-15 08:00] VITALS: BP 104/62
[2021-04-15] MEDS ORDERED: IOHEXOL-300 50 ML BOTTLE IV ONE (08:15)
[2021-04-15] MEDS: AMLODIPINE 2.5MG TABLET PO SCH (09:00)
[2021-04-15] MEDS: PREDNISONE 5MG TABLET PO SCH ×2 (09:38→21:12)
[2021-04-15] MEDS ORDERED: ENOXAPARIN 30MG/0.3ML SYR SUBCUT NR (10:00)
[2021-04-15 10:37] LABS: BASOPHILS % 0.5 % (0.0-2.0); EOSINOPHILS % 0.1 % (0.0-5.0); HEMATOCRIT. 34.1 % (36.0-48.0); HEMOGLOBIN. 11.1 g/dL (12.0-16.0); LYMPHOCYTES % 8.1 % (20.0-50.0); MEAN CORPUSCULAR HEMOGLOBIN 25.9 pg (28.0-32.0); MEAN CORPUSCULAR VOLUME 79.5 fL (81.0-99.0); MEAN PLATELET VOLUME 8.2 fl (7.4-10.4); MONOCYTES % 8.3 % (2.0-8.0); PLATELET 237 x1000/uL (130-400); RED BLOOD CELL COUNT 4.28 mill/uL (4.2-5.4); RED CELL DISTRIBUTION WIDTH 16.5 % (11.6-14.6)
[2021-04-15 10:46] LABS: PHOSPHORUS 1.8 mg/dL (2.5-4.9)
[2021-04-15 12:00] VITALS: BP 114/63
[2021-04-15] MEDS: INSULIN GLARGINE UD 100 UNITS/ML SYR SUBCUT SCH (12:20)
[2021-04-15] MEDS: SODIUM CHLORIDE 0.45% 1,000 ML IV SCH ×2 (12:43→23:17)
[2021-04-15] MEDS ORDERED: SODIUM PHOS,M-BASIC-D-BASIC 20 MM in DEXT 5% WATER 243.3333 ML IV SCH (14:00)
[2021-04-15 16:00] VITALS: BP 120/69
[2021-04-15 17:33] LABS: CLARITY URINE CLOUDY (CLEAR); COLOR URINE YELLOW (YELLOW); KETONES URINE NEGATIVE (NEGATIVE); LEUKOCYTE ESTERASE URINE 1+ (NEGATIVE); NITRITE URINE NEGATIVE (NEGATIVE); OCCULT BLOOD URINE 3+ (NEGATIVE); PROTEIN URINE 2+ (NEGATIVE); SPECIFIC GRAVITY URINE 1.015 (1.005-1.030); UROBILINOGEN URINE 0.2 E.U./dL (0.2-1.0)
[2021-04-15] MEDS ORDERED: GUAIFENESIN/CODEINE 200-20MG/10ML UDC PO PRN (18:45)
[2021-04-15 20:00] VITALS: BP 130/65
[2021-04-15] MEDS: GUAIFENESIN 200MG/10ML SUGAR FREE UDC PO PRN (21:11)
[2021-04-15] MEDS: ATORVASTATIN CALCIUM 40MG TABLET PO SCH (21:12)
[2021-04-16] VITALS (7 sets, daily range): BP systolic 100–157; BP diastolic 56–71
[2021-04-16] MEDS: GABAPENTIN 300MG CAPSULE PO SCH ×3 (05:56→21:02)
[2021-04-16] MEDS: DILTIAZEM HCL 30MG TABLET PO SCH ×4 (05:56→23:15)
[2021-04-16] MEDS: POLYVINYL ALCOHOL OPHTH DROPS 15ML BOTHEYE SCH ×4 (05:56→23:15)
[2021-04-16] MEDS: INSULIN LISPRO 100 UNITS/ML SUBCUT SCH ×4 (06:33→20:27)
[2021-04-16] MEDS: BLOOD SUGAR DIAGNOSTIC STRIP TEST SCH ×4 (06:34→20:13)
[2021-04-16] MEDS: GUAIFENESIN 200MG/10ML SUGAR FREE UDC PO PRN ×2 (06:38→21:02)
[2021-04-16 07:23] LABS: BASOPHILS % 0.6 % (0.0-2.0); EOSINOPHILS % 1.2 % (0.0-5.0); HEMATOCRIT. 34.9 % (36.0-48.0); HEMOGLOBIN. 11.4 g/dL (12.0-16.0); LYMPHOCYTES % 11.4 % (20.0-50.0); MEAN CORPUSCULAR HEMOGLOBIN 25.8 pg (28.0-32.0); MEAN CORPUSCULAR VOLUME 79.1 fL (81.0-99.0); MEAN PLATELET VOLUME 8.8 fl (7.4-10.4); MONOCYTES % 7.6 % (2.0-8.0); NEUTROPHILS % 79.2 % (40.0-76.0); PLATELET 266 x1000/uL (130-400); RED BLOOD CELL COUNT 4.42 mill/uL (4.2-5.4); RED CELL DISTRIBUTION WIDTH 16.8 % (11.6-14.6)
[2021-04-16] MEDS: PREDNISONE 5MG TABLET PO SCH ×2 (09:39→20:28)
[2021-04-16] MEDS: CEFTRIAXONE 1,000 MG in DEXTROSE 5% WATER 50 ML IV SCH (09:40)
[2021-04-16] MEDS: AMLODIPINE 2.5MG TABLET PO SCH (09:40)
[2021-04-16] MEDS: INSULIN GLARGINE UD 100 UNITS/ML SYR SUBCUT SCH ×2 (09:46→22:19)
[2021-04-16] MEDS ORDERED: ENOXAPARIN 80MG/0.8ML SYR SUBCUT SCH (10:00)
[2021-04-16] MEDS: SODIUM CHLORIDE 0.45% 1,000 ML IV SCH (13:05)
[2021-04-16] MEDS ORDERED: GLIMEPIRIDE 1MG TABLET PO NR (19:30)
[2021-04-16] MEDS: ATORVASTATIN CALCIUM 40MG TABLET PO SCH (20:28)
[2021-04-16] MEDS: DIPHENHYDRAMINE 25MG CAPSULE PO PRN (22:19)
[2021-04-17] MEDS: SODIUM CHLORIDE 0.45% 1,000 ML IV SCH ×2 (01:06→16:14)
[2021-04-17 03:58] VITALS: BP 140/61
[2021-04-17] MEDS: POLYVINYL ALCOHOL OPHTH DROPS 15ML BOTHEYE SCH ×4 (06:14→23:21)
[2021-04-17] MEDS: DILTIAZEM HCL 30MG TABLET PO SCH ×4 (06:14→18:32)
[2021-04-17] MEDS: GABAPENTIN 300MG CAPSULE PO SCH ×3 (06:14→21:22)
[2021-04-17] MEDS: BLOOD SUGAR DIAGNOSTIC STRIP TEST SCH ×4 (06:15→21:18)
[2021-04-17] MEDS: INSULIN LISPRO 100 UNITS/ML SUBCUT SCH ×4 (06:15→21:24)
[2021-04-17 08:00] VITALS: BP_SYST 146; BP_SYST 161; BP_DIAS 76; BP_DIAS 83
[2021-04-17] MEDS: INSULIN GLARGINE UD 100 UNITS/ML SYR SUBCUT SCH ×2 (09:00→22:13)
[2021-04-17] MEDS ORDERED: INSULIN GLARGINE UD 100 UNITS/ML SYR SUBCUT SCH (10:00)
[2021-04-17] MEDS: CEFTRIAXONE 1,000 MG in DEXTROSE 5% WATER 50 ML IV SCH (11:18)
[2021-04-17] MEDS: AMLODIPINE 2.5MG TABLET PO SCH (11:20)
[2021-04-17] MEDS: APIXABAN 5 MG TABLET PO SCH ×2 (11:21→18:34)
[2021-04-17] MEDS: PREDNISONE 5MG TABLET PO SCH ×2 (11:21→21:23)
[2021-04-17 12:00] VITALS: BP 140/70
[2021-04-17 12:14] LABS: BASOPHILS % 1.3 % (0.0-2.0); EOSINOPHILS % 1.6 % (0.0-5.0); HEMATOCRIT. 36.9 % (36.0-48.0); HEMOGLOBIN. 11.4 g/dL (12.0-16.0); LYMPHOCYTES % 24.7 % (20.0-50.0); MEAN CORPUSCULAR HEMOGLOBIN 24.5 pg (28.0-32.0); MEAN CORPUSCULAR VOLUME 79.2 fL (81.0-99.0); MEAN PLATELET VOLUME 8.6 fl (7.4-10.4); NEUTROPHILS % 62.4 % (40.0-76.0); PLATELET 270 x1000/uL (130-400); RED BLOOD CELL COUNT 4.65 mill/uL (4.2-5.4); RED CELL DISTRIBUTION WIDTH 16.1 % (11.6-14.6)
[2021-04-17 12:36] LABS: CHLORIDE 106 mEq/L (98-107)
[2021-04-17 16:00] VITALS: BP 138/70
[2021-04-17 20:00] VITALS: BP 137/65
[2021-04-17] MEDS: ATORVASTATIN CALCIUM 40MG TABLET PO SCH (21:23)
[2021-04-17] MEDS ORDERED: MAGNESIUM 2 G PREMIX 50 ML IV NR (22:00)
[2021-04-17] MEDS: DIPHENHYDRAMINE 25MG CAPSULE PO PRN (22:17)
[2021-04-17 23:58] VITALS: BP 155/62
[2021-04-18] MEDS: SODIUM CHLORIDE 0.45% 1,000 ML IV SCH (03:42)
[2021-04-18 04:00] VITALS: BP 135/66
[2021-04-18] MEDS: POLYVINYL ALCOHOL OPHTH DROPS 15ML BOTHEYE SCH ×3 (05:15→18:31)
[2021-04-18] MEDS: GABAPENTIN 300MG CAPSULE PO SCH ×3 (05:16→21:17)
[2021-04-18] MEDS: DILTIAZEM HCL 30MG TABLET PO SCH ×3 (05:16→18:25)
[2021-04-18] MEDS: BLOOD SUGAR DIAGNOSTIC STRIP TEST SCH ×4 (06:13→21:16)
[2021-04-18] MEDS: INSULIN LISPRO 100 UNITS/ML SUBCUT SCH ×4 (06:30→21:54)
[2021-04-18 08:00] VITALS: BP 148/78
[2021-04-18 10:36] LABS: BASOPHILS % 1.9 % (0.0-2.0); HEMATOCRIT. 39.3 % (36.0-48.0); HEMOGLOBIN. 12.4 g/dL (12.0-16.0); LYMPHOCYTES % 23.9 % (20.0-50.0); MEAN CORPUSCULAR VOLUME 79.3 fL (81.0-99.0); MEAN PLATELET VOLUME 8.6 fl (7.4-10.4); MONOCYTES % 8.8 % (2.0-8.0); NEUTROPHILS % 64.4 % (40.0-76.0); PLATELET 263 x1000/uL (130-400); RED BLOOD CELL COUNT 4.95 mill/uL (4.2-5.4); RED CELL DISTRIBUTION WIDTH 16.4 % (11.6-14.6)
[2021-04-18 10:43] LABS: CHLORIDE 106 mEq/L (98-107)
[2021-04-18] MEDS ORDERED: POTASSIUM CHLORIDE 20MEQ TABLET SR PO SCH (11:00)
[2021-04-18] MEDS: PREDNISONE 5MG TABLET PO SCH ×2 (11:17→20:26)
[2021-04-18] MEDS: CEFTRIAXONE 1,000 MG in DEXTROSE 5% WATER 50 ML IV SCH (11:17)
[2021-04-18] MEDS: AMLODIPINE 2.5MG TABLET PO SCH (11:18)
[2021-04-18] MEDS: APIXABAN 5 MG TABLET PO SCH ×2 (11:18→18:25)
[2021-04-18] MEDS: INSULIN GLARGINE UD 100 UNITS/ML SYR SUBCUT SCH ×2 (11:21→21:55)
[2021-04-18 12:00] VITALS: BP 122/78
[2021-04-18] MEDS ORDERED: MAGNESIUM 4 G PREMIX 100 ML IV SCH (12:00)
[2021-04-18 14:27] VITALS: BP 148/78
[2021-04-18 16:00] VITALS: BP 138/68
[2021-04-18 17:32] LABS: INR 1.1; PROTHROMBIN TIME 11.4 sec (9.6-11.0)
[2021-04-18 20:00] VITALS: BP 136/64
[2021-04-18] MEDS: ATORVASTATIN CALCIUM 40MG TABLET PO SCH (20:27)
[2021-04-18] MEDS: DIPHENHYDRAMINE 25MG CAPSULE PO PRN (21:17)
[2021-04-19] VITALS: BP 165/88
[2021-04-19] MEDS: POLYVINYL ALCOHOL OPHTH DROPS 15ML BOTHEYE SCH ×4 (00:28→17:52)
[2021-04-19] MEDS: DILTIAZEM HCL 30MG TABLET PO SCH ×4 (00:31→17:51)
[2021-04-19 04:00] VITALS: BP 157/78
[2021-04-19] MEDS: GABAPENTIN 300MG CAPSULE PO SCH ×3 (05:34→21:52)
[2021-04-19] MEDS: INSULIN LISPRO 100 UNITS/ML SUBCUT SCH ×4 (05:43→21:54)
[2021-04-19] MEDS: BLOOD SUGAR DIAGNOSTIC STRIP TEST SCH ×4 (05:43→21:53)
[2021-04-19 07:19] LABS: HEMATOCRIT. 36.4 % (36.0-48.0); HEMOGLOBIN. 11.8 g/dL (12.0-16.0); LYMPHOCYTES % 15.6 % (20.0-50.0); MEAN CORPUSCULAR HEMOGLOBIN 25.4 pg (28.0-32.0); MEAN CORPUSCULAR VOLUME 78.4 fL (81.0-99.0); MEAN PLATELET VOLUME 8.7 fl (7.4-10.4); NEUTROPHILS % 74.4 % (40.0-76.0); PLATELET 213 x1000/uL (130-400); RED BLOOD CELL COUNT 4.64 mill/uL (4.2-5.4); RED CELL DISTRIBUTION WIDTH 16.4 % (11.6-14.6)
[2021-04-19 07:45] LABS: CHLORIDE 105 mEq/L (98-107)
[2021-04-19 07:48] LABS: PHOSPHORUS 3.1 mg/dL (2.5-4.9)
[2021-04-19 08:00] VITALS: BP 117/72
[2021-04-19] MEDS ORDERED: POTASSIUM CHLORIDE 20MEQ TABLET SR PO NR (08:00)
[2021-04-19] MEDS: CEFTRIAXONE 1,000 MG in DEXTROSE 5% WATER 50 ML IV SCH (09:20)
[2021-04-19] MEDS: PREDNISONE 5MG TABLET PO SCH ×2 (09:20→21:55)
[2021-04-19] MEDS: AMLODIPINE 2.5MG TABLET PO SCH (09:20)
[2021-04-19] MEDS: APIXABAN 5 MG TABLET PO SCH ×2 (09:20→17:51)
[2021-04-19] MEDS: INSULIN GLARGINE UD 100 UNITS/ML SYR SUBCUT SCH ×2 (09:21→21:54)
[2021-04-19] MEDS: MAGNESIUM 2 G PREMIX 50 ML IV SCH ×2 (11:41→13:03)
[2021-04-19 12:00] VITALS: BP 167/87
[2021-04-19 16:00] VITALS: BP 125/53
[2021-04-19 20:00] VITALS: BP 127/61
[2021-04-19] MEDS: ATORVASTATIN CALCIUM 40MG TABLET PO SCH (21:52)
[2021-04-19] MEDS: ZOLPIDEM TARTRATE 5MG TABLET PO PRN (21:55)
[2021-04-19] MEDS: AMLODIPINE 5MG TABLET PO SCH (21:55)
[2021-04-20] VITALS: BP 133/78
[2021-04-20] MEDS: DILTIAZEM HCL 30MG TABLET PO SCH ×4 (00:33→17:28)
[2021-04-20] MEDS: POLYVINYL ALCOHOL OPHTH DROPS 15ML BOTHEYE SCH ×4 (00:34→17:27)
[2021-04-20 04:00] VITALS: BP 108/67
[2021-04-20 06:12] LABS: BASOPHILS % 0.5 % (0.0-2.0); EOSINOPHILS % 0.8 % (0.0-5.0); HEMATOCRIT. 37.6 % (36.0-48.0); HEMOGLOBIN. 12.3 g/dL (12.0-16.0); LYMPHOCYTES % 12.3 % (20.0-50.0); MEAN CORPUSCULAR HEMOGLOBIN 25.6 pg (28.0-32.0); MEAN CORPUSCULAR VOLUME 78.5 fL (81.0-99.0); MEAN PLATELET VOLUME 8.3 fl (7.4-10.4); MONOCYTES % 6.5 % (2.0-8.0); NEUTROPHILS % 79.9 % (40.0-76.0); PLATELET 258 x1000/uL (130-400); RED BLOOD CELL COUNT 4.79 mill/uL (4.2-5.4); RED CELL DISTRIBUTION WIDTH 16.4 % (11.6-14.6)
[2021-04-20] MEDS: BLOOD SUGAR DIAGNOSTIC STRIP TEST SCH ×4 (06:32→21:54)
[2021-04-20] MEDS: INSULIN LISPRO 100 UNITS/ML SUBCUT SCH ×4 (06:32→21:59)
[2021-04-20] MEDS: GABAPENTIN 300MG CAPSULE PO SCH ×3 (06:32→21:53)
[2021-04-20 08:00] VITALS: BP 110/59
[2021-04-20] MEDS: APIXABAN 5 MG TABLET PO SCH ×2 (08:45→16:07)
[2021-04-20] MEDS: PREDNISONE 5MG TABLET PO SCH ×2 (08:45→21:54)
[2021-04-20] MEDS: CEFTRIAXONE 1,000 MG in DEXTROSE 5% WATER 50 ML IV SCH (08:45)
[2021-04-20] MEDS: AMLODIPINE 5MG TABLET PO SCH ×2 (08:45→21:53)
[2021-04-20 10:02] LABS: CHLORIDE 107 mEq/L (98-107)
[2021-04-20 10:10] LABS: PHOSPHORUS 3.1 mg/dL (2.5-4.9)
[2021-04-20] MEDS: INSULIN GLARGINE UD 100 UNITS/ML SYR SUBCUT SCH ×2 (10:16→21:59)
[2021-04-20 12:00] VITALS: BP 177/78
[2021-04-20 16:00] VITALS: BP 138/115
[2021-04-20] MEDS: ACETAMINOPHEN 325MG TABLET PO PRN (16:07)
[2021-04-20 20:00] VITALS: BP 147/74
[2021-04-20] MEDS: ATORVASTATIN CALCIUM 40MG TABLET PO SCH (21:53)
[2021-04-20] MEDS: ZOLPIDEM TARTRATE 5MG TABLET PO PRN (21:53)
[2021-04-21] VITALS (7 sets, daily range): BP systolic 126–187; BP diastolic 63–81
[2021-04-21] MEDS: DILTIAZEM HCL 30MG TABLET PO SCH ×5 (00:23→23:10)
[2021-04-21] MEDS: GUAIFENESIN 200MG/10ML SUGAR FREE UDC PO PRN (00:23)
[2021-04-21] MEDS: POLYVINYL ALCOHOL OPHTH DROPS 15ML BOTHEYE SCH ×5 (00:24→23:10)
[2021-04-21] MEDS: GABAPENTIN 300MG CAPSULE PO SCH ×3 (06:39→21:36)
[2021-04-21] MEDS: BLOOD SUGAR DIAGNOSTIC STRIP TEST SCH ×4 (06:40→21:35)
[2021-04-21] MEDS: INSULIN LISPRO 100 UNITS/ML SUBCUT SCH ×4 (06:41→21:43)
[2021-04-21] MEDS: PREDNISONE 5MG TABLET PO SCH ×2 (08:35→21:36)
[2021-04-21] MEDS: AMLODIPINE 5MG TABLET PO SCH ×2 (08:35→21:32)
[2021-04-21] MEDS: APIXABAN 5 MG TABLET PO SCH ×2 (08:35→16:09)
[2021-04-21] MEDS: INSULIN GLARGINE UD 100 UNITS/ML SYR SUBCUT SCH ×2 (10:40→23:08)
[2021-04-21] MEDS ORDERED: APIX5TAB PO (12:15)
[2021-04-21] MEDS ORDERED: LANTUSUD SUBCUT (12:15)
[2021-04-21] MEDS ORDERED: DILT30TA38 PO (12:15)
[2021-04-21] MEDS ORDERED: AMLO5TAB88 PO ×2 (12:15)
[2021-04-21] MEDS: HYDRALAZINE HCL 10MG TABLET PO SCH ×2 (14:20→21:32)
[2021-04-21] MEDS: ACETAMINOPHEN 325MG TABLET PO PRN (16:09)
[2021-04-21] MEDS: ZOLPIDEM TARTRATE 5MG TABLET PO PRN (21:35)
[2021-04-21] MEDS: ATORVASTATIN CALCIUM 40MG TABLET PO SCH (21:36)
[2021-04-22] VITALS: BP 150/84
[2021-04-22 04:00] VITALS: BP 132/61
[2021-04-22] MEDS: HYDRALAZINE HCL 10MG TABLET PO SCH (06:44)
[2021-04-22] MEDS: GABAPENTIN 300MG CAPSULE PO SCH (06:44)
[2021-04-22] MEDS: INSULIN LISPRO 100 UNITS/ML SUBCUT SCH ×2 (06:44→12:33)
[2021-04-22] MEDS: DILTIAZEM HCL 30MG TABLET PO SCH ×2 (06:44→12:35)
[2021-04-22] MEDS: BLOOD SUGAR DIAGNOSTIC STRIP TEST SCH ×2 (06:44→12:32)
[2021-04-22] MEDS: POLYVINYL ALCOHOL OPHTH DROPS 15ML BOTHEYE SCH ×2 (06:46→12:35)
[2021-04-22] MEDS ORDERED: HYDR-4133 PO (07:28)
[2021-04-22 08:00] VITALS: BP 139/62
[2021-04-22] MEDS: AMLODIPINE 5MG TABLET PO SCH (10:08)
[2021-04-22] MEDS: APIXABAN 5 MG TABLET PO SCH (10:08)
[2021-04-22] MEDS: PREDNISONE 5MG TABLET PO SCH (10:08)
[2021-04-22] MEDS: INSULIN GLARGINE UD 100 UNITS/ML SYR SUBCUT SCH (10:09)
[2021-04-22 11:11] VITALS: BP 139/62
[2021-04-22 12:00] VITALS: BP 143/80
== END 2021-04-22 15:10 | disposition home health service (06) | DRG 682 ==
LOC: ER 16:26 → MICUSO 19:48 → 8WST 04-14 03:51
PROVIDERS: ADMIT Family Medicine Adult Medicine; ATTEND Family Medicine Adult Medicine
PROC: 02HV33Z Insertion of Infusion Device into Superior Vena Cava, Percutaneous Approach (ICD-10-PCS; principal; 2021-04-15)
PROC: B518ZZA Fluoroscopy of Superior Vena Cava, Guidance (ICD-10-PCS; 2021-04-15)
PROC: B548ZZA Ultrasonography of Superior Vena Cava, Guidance (ICD-10-PCS; 2021-04-15)
DX: N17.0 Acute kidney failure with tubular necrosis (principal); G92.8 Other toxic encephalopathy; I50.41 Acute combined systolic (congestive) and diastolic (congestive) heart failure; N39.0 Urinary tract infection, site not specified; E44.0 Moderate protein-calorie malnutrition; E27.40 Unspecified adrenocortical insufficiency; Z16.12 Extended spectrum beta lactamase (ESBL) resistance; I11.0 Hypertensive heart disease with heart failure; E11.9 Type 2 diabetes mellitus without complications; E87.6 Hypokalemia; C50.912 Malignant neoplasm of unspecified site of left female breast; E78.5 Hyperlipidemia, unspecified; G47.33 Obstructive sleep apnea (adult) (pediatric); I25.10 Atherosclerotic heart disease of native coronary artery without angina pectoris; I27.20 Pulmonary hypertension, unspecified; I48.0 Paroxysmal atrial fibrillation; J44.9 Chronic obstructive pulmonary disease, unspecified; K52.9 Noninfective gastroenteritis and colitis, unspecified; M19.90 Unspecified osteoarthritis, unspecified site; R74.01 Elevation of levels of liver transaminase levels; Z20.822 Contact with and (suspected) exposure to COVID-19; M54.9 Dorsalgia, unspecified; R26.9 Unspecified abnormalities of gait and mobility; Z85.3 Personal history of malignant neoplasm of breast; Z79.4 Long term (current) use of insulin; Z79.52 Long term (current) use of systemic steroids; Z82.49 Family history of ischemic heart disease and other diseases of the circulatory system; Z86.011 Personal history of benign neoplasm of the brain; Z86.718 Personal history of other venous thrombosis and embolism; Z86.73 Personal history of transient ischemic attack (TIA), and cerebral infarction without residual deficits; Z88.8 Allergy status to other drugs, medicaments and biological substances; Z79.899 Other long term (current) drug therapy; Z68.29 Body mass index [BMI] 29.0-29.9, adult; Z88.1 Allergy status to other antibiotic agents; R53.81 Other malaise; B96.20 Unspecified Escherichia coli [E. coli] as the cause of diseases classified elsewhere
CPT/HCPCS: 36415; 36573; 36600; 71045; 76770; 80048; 80053; 80076; 81003; 82024; 82375; 82533; 82550; 82805; 82962; 83036; 83735; 83880; 84100; 84145; 84439; 84443; 84481; 84484; 85025; 87015; 87045; 87077; 87186; 87426; 87427; 87449; 87635; 92523; 92610; 93005; 93970; 97162; 97166; 97535; 99285; C1725; C1769; C1893; J0696; J1650; J1720; J1815; J2060; J3475; J3490; J7040; J7060; J7512; Q0163; Q9967

== ENCOUNTER 2021-04-27 11:47 | Inpatient (IN) | payer MEDICARE, MEDICAID ==
[~2021-04-27] VITALS: Ht 162.6 cm; Wt 73.0 kg
[~2021-04-27 11:47] MED LIST changes: -AMLO10TA80 PO; +AMLO5TAB88 PO; +APIX5TAB PO; +DILT30TA38 PO; -FURO-151 MT; +HYDR-4133 PO; -INSU100I28 SQ; +LANTUSUD SUBCUT
[2021-04-27] MEDS ORDERED: PREDNISONE 5MG TABLET PO NR (12:45)
[2021-04-27 13:26] LABS: BASOPHILS % 0.8 % (0.0-2.0); EOSINOPHILS % 1.2 % (0.0-5.0); HEMATOCRIT. 44.3 % (36.0-48.0); HEMOGLOBIN. 14.1 g/dL (12.0-16.0); LYMPHOCYTES % 27.8 % (20.0-50.0); MEAN CORPUSCULAR HEMOGLOBIN 25.4 pg (28.0-32.0); MEAN CORPUSCULAR VOLUME 79.8 fL (81.0-99.0); MEAN PLATELET VOLUME 8.2 fl (7.4-10.4); MONOCYTES % 13.4 % (2.0-8.0); NEUTROPHILS % 56.8 % (40.0-76.0); PLATELET 308 x1000/uL (130-400); RED BLOOD CELL COUNT 5.55 mill/uL (4.2-5.4); RED CELL DISTRIBUTION WIDTH 16.8 % (11.6-14.6)
[2021-04-27 13:38] LABS: CHLORIDE 108 mEq/L (98-107)
[2021-04-27] MEDS ORDERED: CLONIDINE 0.1MG TABLET PO PRN (14:00)
[2021-04-27] MEDS ORDERED: ACETAMINOPHEN 325MG TABLET PO PRN (14:00)
[2021-04-27] MEDS ORDERED: SODIUM CHLORIDE 0.9% 1,000 ML IV ONE (14:00)
[2021-04-27] MEDS ORDERED: IPRATROPIUM/ALBUTEROL 0.5-3(2.5)MG/3ML NEB HHN PRN (14:00)
[2021-04-27] MEDS ORDERED: DOCUSATE SODIUM 100MG CAPSULE PO PRN (14:00)
[2021-04-27] MEDS ORDERED: MAGNESIUM/ALUMINUM HYDROXIDE/SIMETHICONE 30ML UDC PO PRN (14:00)
[2021-04-27] MEDS ORDERED: ONDANSETRON HCL 4MG/2ML INJ IV PRN (14:00)
[2021-04-27 15:14] LABS: INR 1.2; PROTHROMBIN TIME 12.6 sec (9.6-11.0)
[2021-04-27] MEDS ORDERED: ENOXAPARIN 80MG/0.8ML SYR SUBCUT SCH (16:00)
[2021-04-27 17:02] LABS: CLARITY URINE CLOUDY (CLEAR); COLOR URINE DARK YELLOW (YELLOW); KETONES URINE TRACE (NEGATIVE); LEUKOCYTE ESTERASE URINE 1+ (NEGATIVE); NITRITE URINE NEGATIVE (NEGATIVE); OCCULT BLOOD URINE NEGATIVE (NEGATIVE); PROTEIN URINE 3+ (NEGATIVE); SPECIFIC GRAVITY URINE 1.018 (1.005-1.030)
[2021-04-27] MEDS: DILTIAZEM HCL 60MG TABLET PO SCH (18:10)
[2021-04-27 21:00] VITALS: BP 115/47
[2021-04-27] MEDS: PREDNISONE 5MG TABLET PO SCH (21:49)
[2021-04-27] MEDS ORDERED: HYDR-4009 MT (23:41)
[2021-04-27] MEDS ORDERED: VIT1TABL62 PO (23:41)
[2021-04-27] MEDS ORDERED: NEBI5TAB3 MT (23:41)
[2021-04-27] MEDS ORDERED: VIT1CAPS (23:41)
[2021-04-28] VITALS (7 sets, daily range): BP systolic 105–142; BP diastolic 51–66
[2021-04-28] MEDS: DILTIAZEM HCL 60MG TABLET PO SCH ×4 (00:55→17:32)
[2021-04-28] MEDS ORDERED: HYDR-4005 MT (01:00)
[2021-04-28] MEDS ORDERED: EMPA25TA MT (01:00)
[2021-04-28] MEDS ORDERED: NEBI5TAB3 MT (01:00)
[2021-04-28] MEDS ORDERED: ATOR-2 MT (01:00)
[2021-04-28] MEDS ORDERED: ASCO-456 PO (01:00)
[2021-04-28] MEDS ORDERED: EZET10TA13 MT (01:00)
[2021-04-28] MEDS ORDERED: DOCU-150 MT (01:00)
[2021-04-28] MEDS ORDERED: LOSA100T32 MT (01:00)
[2021-04-28] MEDS ORDERED: Ibuprofen PO (01:04)
[2021-04-28] MEDS ORDERED: FERR325T6 MT (01:09)
[2021-04-28] MEDS ORDERED: DULOXETINE PO (01:09)
[2021-04-28] MEDS ORDERED: GLIM2TAB30 PO (01:09)
[2021-04-28] MEDS ORDERED: GABA-290 PO (01:14)
[2021-04-28] MEDS ORDERED: Vitamin D3 PO (01:14)
[2021-04-28] MEDS ORDERED: AMLO10TA80 PO (01:19)
[2021-04-28] MEDS ORDERED: *PATIENT'S OWN MEDICATION STORAGE XX SCH (03:15)
[2021-04-28] MEDS ORDERED: DEXTROSE 50% WATER 50ML SYRINGE IV PRN (06:45)
[2021-04-28] MEDS: BLOOD SUGAR DIAGNOSTIC STRIP TEST SCH ×4 (07:20→21:03)
[2021-04-28] MEDS: INSULIN LISPRO 100 UNITS/ML SUBCUT SCH ×4 (07:50→21:02)
[2021-04-28 07:57] LABS: BASOPHILS % 0.5 % (0.0-2.0); EOSINOPHILS % 0.2 % (0.0-5.0); HEMATOCRIT. 42.3 % (36.0-48.0); HEMOGLOBIN. 13.6 g/dL (12.0-16.0); LYMPHOCYTES % 15.6 % (20.0-50.0); MEAN CORPUSCULAR HEMOGLOBIN 25.6 pg (28.0-32.0); MEAN CORPUSCULAR VOLUME 79.5 fL (81.0-99.0); MEAN PLATELET VOLUME 8.5 fl (7.4-10.4); MONOCYTES % 10.8 % (2.0-8.0); NEUTROPHILS % 72.9 % (40.0-76.0); PLATELET 258 x1000/uL (130-400); RED BLOOD CELL COUNT 5.32 mill/uL (4.2-5.4); RED CELL DISTRIBUTION WIDTH 16.7 % (11.6-14.6)
[2021-04-28 08:25] LABS: FOLIC ACID (FOLATE) SERUM >20 ng/mL ng/mL (>5.38)
[2021-04-28 08:36] LABS: T4 FREE 1.86 ng/dL (0.76-1.46); VITAMIN B12 SERUM 1953 pg/mL (211-911)
[2021-04-28] MEDS: PREDNISONE 5MG TABLET PO SCH ×2 (09:00→21:01)
[2021-04-28] MEDS: INSULIN GLARGINE UD 100 UNITS/ML SYR SUBCUT SCH ×2 (09:02→21:02)
[2021-04-28] MEDS ORDERED: MAGNESIUM 2 G PREMIX 50 ML IV SCH (11:00)
[2021-04-28] MEDS: ENOXAPARIN 80MG/0.8ML SYR SUBCUT SCH (17:31)
[2021-04-29] MEDS: DILTIAZEM HCL 60MG TABLET PO SCH ×4 (00:27→17:36)
[2021-04-29 04:00] VITALS: BP 111/46
[2021-04-29 06:56] LABS: BASOPHILS % 0.6 % (0.0-2.0); EOSINOPHILS % 1.3 % (0.0-5.0); HEMATOCRIT. 38.9 % (36.0-48.0); HEMOGLOBIN. 12.8 g/dL (12.0-16.0); LYMPHOCYTES % 16.4 % (20.0-50.0); MEAN CORPUSCULAR VOLUME 79.2 fL (81.0-99.0); MEAN PLATELET VOLUME 8.9 fl (7.4-10.4); MONOCYTES % 9.8 % (2.0-8.0); NEUTROPHILS % 71.9 % (40.0-76.0); PLATELET 237 x1000/uL (130-400); RED BLOOD CELL COUNT 4.92 mill/uL (4.2-5.4); RED CELL DISTRIBUTION WIDTH 16.3 % (11.6-14.6)
[2021-04-29] MEDS: BLOOD SUGAR DIAGNOSTIC STRIP TEST SCH ×4 (07:20→21:02)
[2021-04-29] MEDS: INSULIN LISPRO 100 UNITS/ML SUBCUT SCH ×4 (07:50→21:01)
[2021-04-29 08:15] VITALS: BP 121/50
[2021-04-29] MEDS: PREDNISONE 5MG TABLET PO SCH ×2 (09:15→21:02)
[2021-04-29] MEDS: INSULIN GLARGINE UD 100 UNITS/ML SYR SUBCUT SCH ×2 (09:49→21:02)
[2021-04-29 12:15] VITALS: BP 107/49
[2021-04-29 16:25] VITALS: BP 136/60
[2021-04-29] MEDS: ENOXAPARIN 80MG/0.8ML SYR SUBCUT SCH (17:36)
[2021-04-29 20:00] VITALS: BP 125/52
[2021-04-29] MEDS: TRAZODONE HCL 50MG TABLET PO PRN (21:01)
[2021-04-29] MEDS: GUAIFENESIN 200MG/10ML SUGAR FREE UDC PO PRN (21:06)
[2021-04-30] VITALS (7 sets, daily range): BP systolic 93–145; BP diastolic 45–62
[2021-04-30] MEDS: DILTIAZEM HCL 60MG TABLET PO SCH ×4 (00:12→17:16)
[2021-04-30] MEDS: BLOOD SUGAR DIAGNOSTIC STRIP TEST SCH ×4 (07:20→20:56)
[2021-04-30] MEDS: INSULIN LISPRO 100 UNITS/ML SUBCUT SCH ×4 (07:50→22:28)
[2021-04-30] MEDS: PREDNISONE 5MG TABLET PO SCH ×2 (09:44→22:25)
[2021-04-30] MEDS: INSULIN GLARGINE UD 100 UNITS/ML SYR SUBCUT SCH ×3 (10:00→22:29)
[2021-04-30] MEDS: POLYVINYL ALCOHOL OPHTH DROPS 15ML EACHEYE SCH ×2 (12:00→17:11)
[2021-04-30] MEDS: ENOXAPARIN 80MG/0.8ML SYR SUBCUT SCH (17:08)
[2021-04-30] MEDS: GUAIFENESIN 200MG/10ML SUGAR FREE UDC PO PRN (22:25)
[2021-04-30] MEDS: TRAZODONE HCL 50MG TABLET PO PRN (22:25)
== END 2021-04-30 23:31 | DRG 871 ==
LOC: ER 11:47 → 6WST 16:00 → ENRESERV 19:32
PROVIDERS: ADMIT Family Medicine Adult Medicine; ATTEND Family Medicine Adult Medicine
PROC: 4A10X4Z Monitoring of Central Nervous Electrical Activity, External Approach (ICD-10-PCS; principal; 2021-04-28)
DX: A41.9 Sepsis, unspecified organism (principal); G92.8 Other toxic encephalopathy; G93.6 Cerebral edema; J18.9 Pneumonia, unspecified organism; E27.40 Unspecified adrenocortical insufficiency; E46 Unspecified protein-calorie malnutrition; N17.9 Acute kidney failure, unspecified; N18.4 Chronic kidney disease, stage 4 (severe); I13.0 Hypertensive heart and chronic kidney disease with heart failure and stage 1 through stage 4 chronic kidney disease, or unspecified chronic kidney disease; I50.32 Chronic diastolic (congestive) heart failure; J44.0 Chronic obstructive pulmonary disease with (acute) lower respiratory infection; D32.0 Benign neoplasm of cerebral meninges; I48.0 Paroxysmal atrial fibrillation; Z79.01 Long term (current) use of anticoagulants; E11.22 Type 2 diabetes mellitus with diabetic chronic kidney disease; E78.5 Hyperlipidemia, unspecified; I25.10 Atherosclerotic heart disease of native coronary artery without angina pectoris; E78.00 Pure hypercholesterolemia, unspecified; E87.8 Other disorders of electrolyte and fluid balance, not elsewhere classified; R53.81 Other malaise; R26.89 Other abnormalities of gait and mobility; Z96.641 Presence of right artificial hip joint; R74.01 Elevation of levels of liver transaminase levels; Z20.822 Contact with and (suspected) exposure to COVID-19; M19.90 Unspecified osteoarthritis, unspecified site; Z79.4 Long term (current) use of insulin; Z79.52 Long term (current) use of systemic steroids; Z82.49 Family history of ischemic heart disease and other diseases of the circulatory system; Z85.3 Personal history of malignant neoplasm of breast; Z86.718 Personal history of other venous thrombosis and embolism; Z86.73 Personal history of transient ischemic attack (TIA), and cerebral infarction without residual deficits; Z91.14 Patient's other noncompliance with medication regimen; Z91.19 Patient's noncompliance with other medical treatment and regimen; Z98.51 Tubal ligation status; Z88.1 Allergy status to other antibiotic agents; Z88.8 Allergy status to other drugs, medicaments and biological substances; Z79.899 Other long term (current) drug therapy; Z68.27 Body mass index [BMI] 27.0-27.9, adult
CPT/HCPCS: 36415; 70551; 71045; 80048; 80053; 81003; 82140; 82570; 82607; 82746; 82962; 83036; 83735; 83880; 84300; 84439; 84443; 84481; 84484; 85025; 87426; 92523; 92610; 93005; 97110; 97162; 97166; 97530; 97535; 99291; J1650; J1815; J3475; J7040; J7512; A4315

== ENCOUNTER 2022-03-10 00:26 | Inpatient (IN) | payer MEDICARE, MEDICAID ==
[~2022-03-10] VITALS: Ht 157.5 cm; Wt 71.7 kg
[~2022-03-10 00:26] MED LIST changes: +AMLO10TA80 PO; -AMLO5TAB88 PO; +ASCO-456 PO; +ATOR-2 MT; +DOCU-150 MT; +DULOXETINE PO; +EMPA25TA MT; +EZET10TA13 MT; +FERR325T6 MT; +GABA-290 PO; -GABA-532 PO; +GLIM2TAB30 PO; +HYDR-4005 MT; +HYDR-4009 MT; +Ibuprofen PO; +LOSA100T32 MT; +NEBI5TAB3 MT; +Vitamin D3 PO
[2022-03-10] MEDS ORDERED: IBUPROFEN 600MG TABLET PO ONE (01:15)
[2022-03-10 01:44] LABS: BASOPHILS % 0.3 % (0.0-2.0); CHLORIDE 107 mEq/L (98-107); EOSINOPHILS % 0.6 % (0.0-5.0); HEMATOCRIT. 46.4 % (36.0-48.0); HEMOGLOBIN. 14.3 g/dL (12.0-16.0); LYMPHOCYTES % 27.2 % (20.0-50.0); MEAN CORPUSCULAR HEMOGLOBIN 24.5 pg (28.0-32.0); MEAN CORPUSCULAR VOLUME 79.6 fL (81.0-99.0); MEAN PLATELET VOLUME 8.3 fl (7.4-10.4); MONOCYTES % 13.8 % (2.0-8.0); NEUTROPHILS % 58.1 % (40.0-76.0); PLATELET 210 x1000/uL (130-400); RED BLOOD CELL COUNT 5.82 mill/uL (4.2-5.4)
[2022-03-10] MEDS ORDERED: DIPHENHYDRAMINE 50MG/ML VIAL IV PRN (10:15)
[2022-03-10] MEDS ORDERED: IPRATROPIUM/ALBUTEROL 0.5-3(2.5)MG/3ML NEB HHN PRN (10:15)
[2022-03-10] MEDS ORDERED: CLONIDINE 0.1MG TABLET PO PRN (10:15)
[2022-03-10] MEDS ORDERED: ONDANSETRON HCL 4MG/2ML INJ IV PRN (10:15)
[2022-03-10] MEDS ORDERED: HYDROCORTISONE SOD SUCCINATE 100 MG/2 ML VIAL IV SCH (11:00)
[2022-03-10] MEDS ORDERED: HYDROCORTISONE 10MG TABLET PO SCH (11:00)
[2022-03-10 12:48] LABS: CLARITY URINE CLOUDY (CLEAR); COLOR URINE YELLOW (YELLOW); KETONES URINE NEGATIVE (NEGATIVE); LEUKOCYTE ESTERASE URINE 3+ (NEGATIVE); NITRITE URINE NEGATIVE (NEGATIVE); OCCULT BLOOD URINE NEGATIVE (NEGATIVE); PROTEIN URINE 2+ (NEGATIVE); SPECIFIC GRAVITY URINE 1.012 (1.005-1.030); UROBILINOGEN URINE 0.2 E.U./dL (0.2-1.0)
[2022-03-10] MEDS ORDERED: CEFTRIAXONE 1 G PREMIX 50 ML IV SCH (15:30)
[2022-03-10] MEDS ORDERED: DEXTROSE 50% WATER 50ML SYRINGE IV PRN (16:00)
[2022-03-10] MEDS: SODIUM CHLORIDE 0.9% 1,000 ML IV SCH (16:07)
[2022-03-10] MEDS: BLOOD SUGAR DIAGNOSTIC STRIP TEST SCH ×2 (16:44→20:58)
[2022-03-10] MEDS: INSULIN LISPRO 100 UNITS/ML SUBCUT SCH ×2 (16:44→20:58)
[2022-03-10 20:00] VITALS: BP 125/70
[2022-03-10] MEDS: PREDNISONE 5MG TABLET PO SCH (20:57)
[2022-03-11] VITALS: BP 124/57
[2022-03-11] MEDS ORDERED: LOSA1TAB34 PO (00:11)
[2022-03-11] MEDS ORDERED: CARV3.1242 MT (00:11)
[2022-03-11] MEDS ORDERED: INSU100V51 SUBCUT (00:13)
[2022-03-11 04:00] VITALS: BP_SYST 122; BP_SYST 139; BP_DIAS 56; BP_DIAS 67
[2022-03-11] MEDS: INSULIN LISPRO 100 UNITS/ML SUBCUT SCH ×4 (06:10→21:00)
[2022-03-11] MEDS: BLOOD SUGAR DIAGNOSTIC STRIP TEST SCH ×4 (06:10→21:00)
[2022-03-11] MEDS: ACETAMINOPHEN 325MG TABLET PO PRN ×2 (06:57→19:58)
[2022-03-11 08:00] VITALS: BP 138/64
[2022-03-11] MEDS: SODIUM CHLORIDE 0.9% 1,000 ML IV SCH ×2 (08:00→18:40)
[2022-03-11 08:45] LABS: BASOPHILS % 0.2 % (0.0-2.0); EOSINOPHILS % 0.7 % (0.0-5.0); HEMATOCRIT. 33.2 % (36.0-48.0); HEMOGLOBIN. 10.6 g/dL (12.0-16.0); MEAN CORPUSCULAR HEMOGLOBIN 24.5 pg (28.0-32.0); MEAN CORPUSCULAR VOLUME 76.9 fL (81.0-99.0); MONOCYTES % 10.6 % (2.0-8.0); NEUTROPHILS % 72.5 % (40.0-76.0); PLATELET 166 x1000/uL (130-400); RED BLOOD CELL COUNT 4.31 mill/uL (4.2-5.4); RED CELL DISTRIBUTION WIDTH 18.6 % (11.6-14.6)
[2022-03-11] MEDS ORDERED: PREDNISONE 5MG TABLET PO SCH (09:00)
[2022-03-11 09:18] LABS: CHLORIDE 117 mEq/L (98-107)
[2022-03-11] MEDS: PREDNISONE 5MG TABLET PO SCH ×2 (10:33→21:00)
[2022-03-11 12:00] VITALS: BP 137/68
[2022-03-11] MEDS: CEFTRIAXONE 1,000 MG in DEXTROSE 5% WATER 50 ML IV SCH (15:35)
[2022-03-11 20:00] VITALS: BP 150/60
[2022-03-12] VITALS: BP 152/80
[2022-03-12] MEDS: ACETAMINOPHEN 325MG TABLET PO PRN ×2 (00:40→20:44)
[2022-03-12 04:00] VITALS: BP_SYST 148; BP_SYST 172; BP_DIAS 76; BP_DIAS 83
[2022-03-12] MEDS: BLOOD SUGAR DIAGNOSTIC STRIP TEST SCH ×4 (07:08→20:35)
[2022-03-12] MEDS: INSULIN LISPRO 100 UNITS/ML SUBCUT SCH ×4 (07:10→20:35)
[2022-03-12 08:00] VITALS: BP 138/93
[2022-03-12] MEDS: SODIUM CHLORIDE 0.9% 1,000 ML IV SCH ×3 (08:14→20:43)
[2022-03-12] MEDS: PREDNISONE 5MG TABLET PO SCH ×2 (09:23→20:43)
[2022-03-12] MEDS: AMLODIPINE 10MG TABLET PO SCH (09:24)
[2022-03-12 12:00] VITALS: BP 127/68
[2022-03-12] MEDS: NEBIVOLOL HCL 5 MG TABLET PO SCH (14:03)
[2022-03-12] MEDS: CEFTRIAXONE 1,000 MG in DEXTROSE 5% WATER 50 ML IV SCH (14:04)
[2022-03-12] MEDS: GUAIFENESIN-DM 200MG-20MG/10ML UDC PO PRN (17:33)
[2022-03-12 20:00] VITALS: BP 148/76
[2022-03-12] MEDS: MEROPENEM 1,000 MG in SODIUM CHLORIDE 0.9% 100 ML IV SCH (20:44)
[2022-03-13] VITALS (7 sets, daily range): BP systolic 108–193; BP diastolic 66–89
[2022-03-13] MEDS: GUAIFENESIN-DM 200MG-20MG/10ML UDC PO PRN (01:03)
[2022-03-13] MEDS: ACETAMINOPHEN 325MG TABLET PO PRN (02:35)
[2022-03-13] MEDS: BLOOD SUGAR DIAGNOSTIC STRIP TEST SCH ×2 (06:27→12:32)
[2022-03-13] MEDS: INSULIN LISPRO 100 UNITS/ML SUBCUT SCH ×2 (06:37→13:07)
[2022-03-13] MEDS: PREDNISONE 5MG TABLET PO SCH (09:38)
[2022-03-13] MEDS: AMLODIPINE 10MG TABLET PO SCH (09:39)
[2022-03-13] MEDS: MEROPENEM 1,000 MG in SODIUM CHLORIDE 0.9% 100 ML IV SCH (09:39)
[2022-03-13] MEDS: NEBIVOLOL HCL 5 MG TABLET PO SCH (09:39)
[2022-03-13] MEDS: SODIUM CHLORIDE 0.9% 1,000 ML IV SCH (09:39)
[2022-03-13] MEDS ORDERED: NITR100C MT (14:27)
== END 2022-03-13 17:25 | disposition home health service (06) | DRG 871 ==
LOC: ER 00:26 → MICUSO 04:39 → 7EST 19:03
PROVIDERS: ADMIT Family Medicine Adult Medicine; ATTEND Family Medicine Adult Medicine
PROC: 05HY33Z Insertion of Infusion Device into Upper Vein, Percutaneous Approach (ICD-10-PCS; principal; 2022-03-10)
PROC: B54MZZA Ultrasonography of Right Upper Extremity Veins, Guidance (ICD-10-PCS; 2022-03-10)
DX: A41.51 Sepsis due to Escherichia coli [E. coli] (principal); N17.0 Acute kidney failure with tubular necrosis; E27.40 Unspecified adrenocortical insufficiency; E87.20 Acidosis, unspecified; I13.0 Hypertensive heart and chronic kidney disease with heart failure and stage 1 through stage 4 chronic kidney disease, or unspecified chronic kidney disease; I50.32 Chronic diastolic (congestive) heart failure; N39.0 Urinary tract infection, site not specified; E44.0 Moderate protein-calorie malnutrition; N18.9 Chronic kidney disease, unspecified; E11.22 Type 2 diabetes mellitus with diabetic chronic kidney disease; Z20.822 Contact with and (suspected) exposure to COVID-19; G47.33 Obstructive sleep apnea (adult) (pediatric); J44.9 Chronic obstructive pulmonary disease, unspecified; D32.9 Benign neoplasm of meninges, unspecified; E78.5 Hyperlipidemia, unspecified; I34.0 Nonrheumatic mitral (valve) insufficiency; I25.10 Atherosclerotic heart disease of native coronary artery without angina pectoris; I48.0 Paroxysmal atrial fibrillation; Z85.3 Personal history of malignant neoplasm of breast; Z86.718 Personal history of other venous thrombosis and embolism; Z86.73 Personal history of transient ischemic attack (TIA), and cerebral infarction without residual deficits; Z98.51 Tubal ligation status; Z79.4 Long term (current) use of insulin; E88.09 Other disorders of plasma-protein metabolism, not elsewhere classified; Z79.52 Long term (current) use of systemic steroids; Z82.49 Family history of ischemic heart disease and other diseases of the circulatory system; Z90.13 Acquired absence of bilateral breasts and nipples; W18.30XA Fall on same level, unspecified, initial encounter; Y93.89 Activity, other specified; Y92.89 Other specified places as the place of occurrence of the external cause; Y99.8 Other external cause status
CPT/HCPCS: 36415; 36573; 71045; 80048; 80053; 81003; 82962; 83605; 83735; 83880; 84145; 84484; 85025; 87077; 87186; 87426; 87804; 93005; 93306; 93970; 99285; C1725; C9803; J0696; J1200; J1720; J1815; J2185; J2405; J7030; J7050; J7060; J7512